=== PATIENT | male | born 1945 | race Caucasian/White ===

== ENCOUNTER 2017-01-20 06:39 | Day surgery (SDC) | payer MEDICARE ==
[2017-01-06 09:39] VITALS: BMI 33.5
[~2017-01-20 06:39] MED LIST: LACTATED RINGERS 1,000 ML IV SCH; LIDOCAINE 1% 20 ML VIAL (10MG/ML) FOR IV START INTRADERMA PRN
[2017-01-20 07:18] VITALS: TEMP 97
[2017-01-20 07:33] LABS: Glucose,Whole Blood 139 mg/dL (75-99)
[2017-01-20] MEDS ORDERED: LACTATED RINGERS 1,000 ML IV ONE (07:35)
[2017-01-20] MEDS ORDERED: PROPOFOL 10 MG/ML 20 ML VIAL IV ONE (08:24)
[2017-01-20 08:30] LABS: INR 1.2 (<1.1); Prothrombin Time 11.8 sec (9.0-12.0)
--- NOTE | 2017-01-20 09:02 | P.PCN ---
Date of Procedure: 01/20/17 Preoperative Diagnosis: Postoperative Diagnosis: Procedure(s) Performed: Procedure: Total colonoscopy. Preoperative diagnosis: Screening for neoplasia, patient has history of polyps. Postoperative diagnosis: 1. Sigmoid diverticulosis with no evidence of acute diverticulitis or strictures. 2. Less than ideal preparation, however, no obvious polyps or tumors seen. Preparation: HalfLytely prep. Sedation: Was provided by anesthesia. Brief clinical history: The patient is a 71-year-old male who is scheduled for this evaluation for screening for neoplasia because of history of polyps. His last exam was in March 2011. At this time, he has no abdominal complaints, bleeding or anemia. Procedure: With the patient on his left lateral decubitus position and after informed consent and adequate sedation, the perianal area was inspected and it did not show any fissures or fistulas. There were no masses felt on digital rectal examination. The Olympus CFQ 160L video colonoscope was then inserted in the rectum in the usual fashion and advanced to the cecum. Unfortunately, the preparation was less than ideal and there was some solid fecal material and fecal debris that that I could not wash off or suction totally. Where visualized , the mucosa appeared healthy and I did not see any polyps or tumors. There were multiple diverticular orifices seen scattered in the sigmoid with no evidence of acute diverticulitis or strictures. I retroflexed the endoscope in the rectum before the endoscope was withdrawn. The patient tolerated the procedure well. Plan: The patient was reassured. I discussed dietary measures. In light of his preparation, I am recommending repeat exam in 3 years after a two-day preparation. He will follow up with you as planned. Implants: Indications for Procedure: Operative Findings: Description of Procedure:
[2017-01-20 09:07] VITALS: RESP 18
[2017-01-20 09:38] VITALS: BP 144/88; PULSE 55
== END 2017-01-20 09:51 | disposition home or self-care (01) ==
LOC: ORWHC2ENDO 06:39
DX: Z12.11 Encounter for screening for malignant neoplasm of colon (principal); K57.30 Diverticulosis of large intestine without perforation or abscess without bleeding; Z86.010 Personal history of colon polyps; I10 Essential (primary) hypertension; E78.5 Hyperlipidemia, unspecified; I48.91 Unspecified atrial fibrillation; Z79.01 Long term (current) use of anticoagulants; Z72.0 Tobacco use; E11.9 Type 2 diabetes mellitus without complications; Z79.4 Long term (current) use of insulin; Z79.84 Long term (current) use of oral hypoglycemic drugs; Z85.46 Personal history of malignant neoplasm of prostate; M10.9 Gout, unspecified; Z79.82 Long term (current) use of aspirin; Z79.899 Other long term (current) drug therapy
CPT/HCPCS: 85610; J2704; G0105

== ENCOUNTER 2017-04-30 18:29 | Emergency (ER) | payer MEDICARE ==
[2017-04-30] MEDS ORDERED: SODIUM CHLORIDE 0.9% 1,000 ML IV STA (18:54)
[2017-04-30 18:56] VITALS: RESP 18
--- NOTE | 2017-04-30 18:57 | ED ---
General Adult HPI - General Chief complaint: Allergic Reaction Stated complaint: Bee Sting Time Seen by Provider: 04/30/17 18:49 Source: patient, family, EMS, RN notes reviewed, old records reviewed Mode of arrival: EMS Limitations: no limitations - History of Present Illness Initial comments: This is a 72-year-old male here for evaluation a. Patient coming in the ER for evaluation after bugs or bee sting. Patient was currently dressed he became near beehive, patient was stung multiple times he tried Runaway he did fall and twisted fell landing on his head. Patient was immediately confused after event. Patient is on blood thinners Coumadin. No loss of consciousness per patient but it is unclear. No chest pain no headache or shortness of breath or abdominal pain at this time, patient states he feels well - Related Data Home Medications Medication Instructions Recorded Confirmed Allopurinol [Zyloprim] 100 mg PO DAILY 01/06/17 01/18/17 Aspirin [Adult Low Dose Aspirin EC] 81 mg PO DAILY 01/06/17 01/18/17 Cholecalciferol [Vitamin D3] 2,000 unit PO DAILY 01/06/17 01/18/17 Digoxin 250 mcg PO DAILY 01/06/17 01/18/17 Enalapril [Vasotec] 20 mg PO DAILY 01/06/17 01/18/17 Fenofibrate 160 mg PO DAILY 01/06/17 01/18/17 Flaxseed Oil [Salem-3 Flaxseed Oil] 1,000 mg PO DAILY 01/06/17 01/18/17 Furosemide [Lasix] 20 mg PO DAILY 01/06/17 01/18/17 Insulin Glargine,Hum.rec.anlog 35 units SQ HS 01/06/17 01/18/17 [Toujeo Solostar] Metoprolol Succinate [Toprol XL] 100 mg PO DAILY 01/06/17 01/18/17 Salem-3 Fatty Acids/Fish Oil [Fish 1 each PO QAM 01/06/17 01/18/17 Oil 1,000 mg Softgel] Salem-3 Fatty Acids/Fish Oil [Fish 2 each PO HS 01/06/17 01/18/17 Oil 1,000 mg Softgel] Simvastatin [Zocor] 40 mg PO DAILY 01/06/17 01/18/17 Triamterene-Hctz 37.5-25Mg 1 cap PO DAILY 01/06/17 01/18/17 [Dyazide 37.5-25 Capsule] Warfarin [Coumadin] 7.5 mg PO DAILY 01/06/17 01/18/17 metFORMIN HCL [Glucophage] 1,000 mg PO QAM 01/06/17 01/18/17 metFORMIN HCL [Glucophage] 500 mg PO HS 01/06/17 01/18/17 Allergies Allergy/AdvReac Type Severity Reaction Status Date / Time bee venom protein (honey bee) Allergy Unknown Unknown Verified 04/30/17 18:47 Review of Systems ROS Statement: Those systems with pertinent positive or pertinent negative responses have been documented in the HPI. ROS Other: All systems not noted in ROS Statement are negative. 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 STATES COLONOSCOPY WAS RESCHEDULED DUE TO COUMADIN USE. History of Any Multi-Drug Resistant Organisms: None Reported Past Surgical History: Appendectomy, Joint Replacement, Orthopedic Surgery Additional Past Surgical History / Comment(s): left shoulder surgery, surgery rt eye from metal in eye, left carpal tunnel, shabana hip replacements Past Anesthesia/Blood Transfusion Reactions: No Reported Reaction Past Psychological History: No Psychological Hx Reported Smoking Status: Current some day smoker Past Alcohol Use History: None Reported Past Drug Use History: None Reported - Past Family History Mother Family Medical History: Cancer General Exam Limitations: no limitations General appearance: alert, in no apparent distress Head exam: Present: atraumatic, normocephalic, normal inspection Eye exam: Present: normal appearance, PERRL, EOMI. Absent: scleral icterus, conjunctival injection, periorbital swelling ENT exam: Present: normal exam, mucous membranes moist Neck exam: Present: normal inspection. Absent: tenderness, meningismus, lymphadenopathy Respiratory exam: Present: normal lung sounds bilaterally. Absent: respiratory distress, wheezes, rales, rhonchi, stridor Cardiovascular Exam: Present: regular rate, normal rhythm, normal heart sounds. Absent: systolic murmur, diastolic murmur, rubs, gallop, clicks GI/Abdominal exam: Present: soft, normal bowel sounds. Absent: distended, tenderness, guarding, rebound, rigid Extremities exam: Present: normal inspection, full ROM, normal capillary refill. Absent: tenderness, pedal edema, joint swelling, calf tenderness Back exam: Present: normal inspection Neurological exam: Present: alert, oriented X3, CN II-XII intact Psychiatric exam: Present: normal affect, normal mood Skin exam: Present: warm, dry, intact, normal color. Absent: rash Course Vital Signs 04/30/17 04/30/17 04/30/17 18:47 18:56 19:01 Temperature 97.6 F Pulse Rate 78 Respiratory 18 18 Rate Blood Pressure 120/69 O2 Sat by Pulse 97 Oximetry 04/30/17 19:35 Temperature Pulse Rate 79 Respiratory 18 Rate Blood Pressure 122/72 O2 Sat by Pulse 100 Oximetry - Reevaluation(s) Reevaluation #1: 04/30/17 18:57 Patient currently awake and alert Reevaluation #2: 04/30/17 20:05 no complaints Medical Decision Making - Medical Decision Making 72 male to the ED sp allergic reaction bee sting, fall, trip, closed head injury on coumadin, labs and CT normal ok for DC home - Lab Data Result diagrams: 04/30/17 18:45 04/30/17 18:45 Lab Results 04/30/17 04/30/17 04/30/17 Range/Units 18:45 18:45 18:45 WBC 13.8 H (3.8-10.6) k/uL RBC 5.59 (4.30-5.90) m/uL Hgb 17.2 (13.0-17.5) gm/dL Hct 51.7 (39.0-53.0) % MCV 92.5 (80.0-100.0) fL MCH 30.7 (25.0-35.0) pg MCHC 33.2 (31.0-37.0) g/dL RDW 14.6 (11.5-15.5) % Plt Count 263 (150-450) k/uL Neutrophils % 85 % Lymphocytes % 9 % Monocytes % 4 % Eosinophils % 1 % Basophils % 0 % Neutrophils # 11.8 H (1.3-7.7) k/uL Lymphocytes # 1.2 (1.0-4.8) k/uL Monocytes # 0.5 (0-1.0) k/uL Eosinophils # 0.1 (0-0.7) k/uL Basophils # 0.0 (0-0.2) k/uL PT (9.0-12.0) sec INR (<1.2) APTT (22.0-30.0) sec Sodium 139 (137-145) mmol/L Potassium 4.0 (3.5-5.1) mmol/L Chloride 101 (98-107) mmol/L Carbon Dioxide 27 (22-30) mmol/L Anion Gap 11 mmol/L BUN 33 H (9-20) mg/dL Creatinine 1.40 H (0.66-1.25) mg/dL Est GFR (MDRD) Af Amer >60 (>60 ml/min/1.73 sqM) Est GFR (MDRD) Non-Af 50 (>60 ml/min/1.73 sqM) Glucose 241 H (74-99) mg/dL Calcium 9.4 (8.4-10.2) mg/dL Phosphorus 4.3 (2.5-4.5) mg/dL Magnesium 1.8 (1.6-2.3) mg/dL Total Bilirubin 0.6 (0.2-1.3) mg/dL AST 25 (17-59) U/L ALT 26 (21-72) U/L Alkaline Phosphatase 40 (38-126) U/L Total Creatine Kinase 60 (55-170) U/L CK-MB (CK-2) 1.7 (0.0-2.4) ng/mL CK-MB (CK-2) Rel Index 2.8 Troponin I 0.023 (0.000-0.034) ng/mL Total Protein 6.1 L (6.3-8.2) g/dL Albumin 3.5 (3.5-5.0) g/dL 04/30/17 Range/Units 18:45 WBC (3.8-10.6) k/uL RBC (4.30-5.90) m/uL Hgb (13.0-17.5) gm/dL Hct (39.0-53.0) % MCV (80.0-100.0) fL MCH (25.0-35.0) pg MCHC (31.0-37.0) g/dL RDW (11.5-15.5) % Plt Count (150-450) k/uL Neutrophils % % Lymphocytes % % Monocytes % % Eosinophils % % Basophils % % Neutrophils # (1.3-7.7) k/uL Lymphocytes # (1.0-4.8) k/uL Monocytes # (0-1.0) k/uL Eosinophils # (0-0.7) k/uL Basophils # (0-0.2) k/uL PT 19.2 H (9.0-12.0) sec INR 2.0 H (<1.2) APTT 23.6 (22.0-30.0) sec Sodium (137-145) mmol/L Potassium (3.5-5.1) mmol/L Chloride (98-107) mmol/L Carbon Dioxide (22-30) mmol/L Anion Gap mmol/L BUN (9-20) mg/dL Creatinine (0.66-1.25) mg/dL Est GFR (MDRD) Af Amer (>60 ml/min/1.73 sqM) Est GFR (MDRD) Non-Af (>60 ml/min/1.73 sqM) Glucose (74-99) mg/dL Calcium (8.4-10.2) mg/dL Phosphorus (2.5-4.5) mg/dL Magnesium (1.6-2.3) mg/dL Total Bilirubin (0.2-1.3) mg/dL AST (17-59) U/L ALT (21-72) U/L Alkaline Phosphatase (38-126) U/L Total Creatine Kinase (55-170) U/L CK-MB (CK-2) (0.0-2.4) ng/mL CK-MB (CK-2) Rel Index Troponin I (0.000-0.034) ng/mL Total Protein (6.3-8.2) g/dL Albumin (3.5-5.0) g/dL - Radiology Data Radiology results: report reviewed (CT brain C spine negative for acute disease) , image reviewed Disposition Clinical Impression: Allergic reaction to insect sting, Fall, Head injury Disposition: HOME SELF-CARE Condition: Good Instructions: Concussion (ED), Head Injury (ED) Referrals: Ginna Martin DO [Primary Care Provider] - 1-2 days
[2017-04-30 19:07] VITALS: TEMP 97.6
[2017-04-30 19:14] LABS: Basophils % (A) 0 %; CH 30.7; CHCM 33.3; Eosinophils # (A) 0.1 k/uL (0-0.7); Eosinophils % (A) 1 %; HCT 51.7 % (39.0-53.0); HDW 2.73; HGB 17.2 gm/dL (13.0-17.5); Luc # (Auto) 0.14; Luc % (Auto) 1; Lymphocytes # (A) 1.2 k/uL (1.0-4.8); Lymphocytes % (A) 9 %; MCH 30.7 pg (25.0-35.0); MCHC 33.2 g/dL (31.0-37.0); MCV 92.5 fL (80.0-100.0); Mean Platelet Volume 7.1; Monocytes # (A) 0.5 k/uL (0-1.0); Monocytes % (A) 4 %; Neutrophils # (A) 11.8 k/uL (1.3-7.7); Neutrophils % (A) 85 %; RBC 5.59 m/uL (4.30-5.90); RDW 14.6 % (11.5-15.5); WBC 13.8 k/uL (3.8-10.6); WBC (Perox) 13.83
[2017-04-30 19:23] LABS: Partial Thromboplastin Time 23.6 sec (22.0-30.0); Prothrombin Time 19.2 sec (9.0-12.0)
--- NOTE | 2017-04-30 19:34 | CT ---
EXAMINATION TYPE: CT brain morena keller DATE OF EXAM: 04/30/2017 COMPARISON: NONE HISTORY: Patient fell and hit back of head running from a swarm of bees with new headache and neck pa in. CT DLP: 1265.4 mGycm. Automated Exposure Control for Dose Reduction was Utilized. TECHNIQUE: CT scan of the head and cervical spine are performed without contrast. FINDINGS: There is no acute intracranial hemorrhage or midline shift identified. There is ventricul ar and sulcal prominence consistent with diffuse cerebral atrophy. There is low-attenuation in the pe riventricular white matter likely on basis of product of chronic small vessel ischemic change in trish ent of this age. There is posterior curvilinear scleral calcification in inferior right globe. The pa ranasal sinuses are clear. The calvarium is intact. Cervical spine is visualized in its entirety from C1 through upper thoracic levels and demonstrates r eversal of normal cervical curvature without evidence of acute fracture or dislocation. Prevertebral soft tissue appears within normal limits. The C1-C2 articulation is within normal limits on the cor onal images. Vertebral body heights are maintained. There is moderate to advanced disc space narrowing with modera te spurring at C5-C6 level. There is additional mild to moderate multilevel anterior spurring. Regional Education Coordinator ior spur disc complex effaces anterior thecal sac C5-C6 level on sagittal and axial images. Review of axial images shows multilevel uncovertebral facet degenerative changes contributing to mult ilevel bilateral neural foraminal narrowing. Some retained secretions are seen in the posterior oral pharyngeal cavity and proximal hypopharynx near level of vallecula. There is moderate to severe calci fied plaque in the bilateral carotid bulbs noted. Consider nonemergent carotid ultrasound follow-up. Thyroid gland is felt within normal limits. Visualized lung apices are clear. IMPRESSION: 1. There is no acute fracture or dislocation evident in the cervical spine. 2. No acute intracranial hemorrhage or midline shift is seen. There is mild to moderate diffuse cereb ral atrophy and chronic small vessel ischemic change noted.
[2017-04-30 19:37] VITALS: BP 122/72; PULSE 79
[2017-04-30 19:52] LABS: ALT 26 U/L (21-72); AST 25 U/L (17-59); Alkaline Phosphatase 40 U/L (38-126); Anion Gap 11 mmol/L; Blood Urea Nitrogen 33 mg/dL (9-20); Calcium 9.4 mg/dL (8.4-10.2); Carbon Dioxide 27 mmol/L (22-30); Chloride 101 mmol/L (98-107); Glucose 241 mg/dL (74-99); Magnesium 1.8 mg/dL (1.6-2.3); Non-African American GFR(MDRD) 50 (>60 ml/min/1.73 sqM); Phosphorous 4.3 mg/dL (2.5-4.5); Sodium 139 mmol/L (137-145); Total Bilirubin 0.6 mg/dL (0.2-1.3); Total Protein 6.1 g/dL (6.3-8.2)
[2017-04-30 20:03] LABS: Creatine Kinase MB 1.7 ng/mL (0.0-2.4); Troponin I 0.023 ng/mL (0.000-0.034)
== END 2017-04-30 20:35 | disposition home or self-care (01) ==
LOC: EC 18:29
DX: S09.90XA Unspecified injury of head, initial encounter (principal); T63.441A Toxic effect of venom of bees, accidental (unintentional), initial encounter; E11.9 Type 2 diabetes mellitus without complications; E78.5 Hyperlipidemia, unspecified; I10 Essential (primary) hypertension; N42.9 Disorder of prostate, unspecified; F17.200 Nicotine dependence, unspecified, uncomplicated; Z85.46 Personal history of malignant neoplasm of prostate; Z79.82 Long term (current) use of aspirin; Z79.4 Long term (current) use of insulin; Z79.01 Long term (current) use of anticoagulants; Z79.899 Other long term (current) drug therapy; Z91.030 Bee allergy status; W01.10XA Fall on same level from slipping, tripping and stumbling with subsequent striking against unspecified object, initial encounter
CPT/HCPCS: 36415; 70450; 72125; 80053; 82550; 82553; 83735; 84100; 84484; 85025; 85610; 85730; 96360; 99284

== ENCOUNTER → 2018-12-06 | Day surgery (SDC) | payer MEDICARE ==
[2018-12-01 15:58] VITALS: BMI 33.2
[~2018-12-06] MED LIST changes: +ALPRAZolam 0.25 MG TAB PO PRN; +ALPRAZolam 0.5 MG TAB PO PRN; +ASPIRIN 325 MG TAB PO STA; +ATORVASTATIN 80 MG TAB PO STA; +IOPAMIDOL-370 150ML BTL INJ ONE; -LACTATED RINGERS 1,000 ML IV SCH; -LIDOCAINE 1% 20 ML VIAL (10MG/ML) FOR IV START INTRADERMA PRN; +LIDOCAINE 1% INJ 10MG/ML (20 ML MDV) ONE; +LIDOCAINE 1% INJ 10MG/ML (20 ML MDV) SQ ONE; +MIDAZOLAM 2 MG/2 ML VIAL IV ONE; +NITROGLYCERIN SL TABS 0.4 MG TAB SUBLINGUAL PRN; +RX INFO: IV CONTRAST WAS GIVEN 1 EACH MISC MISCELLANE PRN; +SODIUM CHLORIDE 0.9% 1,000 ML IV SCH; +SODIUM CHLORIDE 0.9% 1,000 ML in EMPTY BAG 1 BAG IV ONE; +cloNIDine HCL 0.1 MG TAB PO SCH; +fentaNYL (PF) 50 MCG/ML 2 ML AMP ONE
[2018-12-06 06:47] VITALS: RESP 18; TEMP 97.7
[2018-12-06 06:48] LABS: INR 1.1 (<1.2); Prothrombin Time 11.4 sec (9.0-12.0)
[2018-12-06 06:51] LABS: Glucose,Whole Blood 163 mg/dL (75-99)
[2018-12-06 06:52] LABS: Calcium 10.1 mg/dL (8.4-10.2)
[2018-12-06] MEDS: fentaNYL (PF) 50 MCG/ML 2 ML AMP IV ONE ×2 (07:50→08:13)
--- NOTE | 2018-12-06 11:48 | CC ---
CARDIAC CATHETERIZATION REPORT INDICATION: Cardiomyopathy. PROCEDURE NOTE: After obtaining informed consent, left heart catheterization, coronary angiogram were performed via the right femoral artery using standard Michelle catheters. Patient tolerated the procedure well without any obvious immediate complications. A femoral angiogram was performed and Angio-Seal was deployed for hemostasis. Patient received moderate conscious sedation. Total sedation time was 15 minutes. FINDINGS: 1. HEMODYNAMICS: Central aortic pressure was elevated at 150/90. 2. LEFT VENTRICULOGRAM: Left ventriculogram is not performed. 3. ANGIOGRAPHIC DATA: Left Main Coronary Artery: Left main coronary artery is a normal-sized vessel appears calcified but is free of significant stenosis. Divides into left anterior descending coronary artery and circumflex coronary artery. LAD shows a mild atherosclerotic plaque in LAD. There are no focal hemodynamically significant lesions. Circumflex coronary artery is a codominant vessel and is free of significant disease. Right coronary artery is a large dominant vessel and shows mild atherosclerotic plaque in its proximal part. CONCLUSION: Mild nonobstructive coronary artery disease involving LAD and right coronary artery. PLAN: I reviewed patient's angiographic data with the patient and told him that his cardiomyopathy is nonischemic in etiology and his management is going to be with continued medical therapy. Blood pressures are poorly controlled. I am going to start him on Catapres 0.1 mg b.i.d. Coumadin is on hold. He is going to resume it. He is on metformin. He is going to hold it for 2 days. MMEMMANUELL / AJN: [id number] /
--- NOTE | 2018-12-06 11:50 | LTR ---
December 06, 2018 Re: Babatunde Peters Dear Dr. Martin: I performed cardiac catheterization on Babatunde Peters. A detailed catheterization note is in records. In brief, the cardiac catheterization reveals mild nonobstructive coronary artery disease involving LAD and right coronary artery. His management is going to be in the form of risk factor modification, optimal medical therapy and treatment for underlying cardiomyopathy and atrial fibrillation. Thank you for giving me the privilege to participate in the care of this pleasant gentleman. Sincerely, MD INGA Bender / HOOD: [id number] /
[2018-12-06 13:36] VITALS: BP 138/86; PULSE 74
== END ==
LOC: CATHCVL 05:41
PROVIDERS: ATTEND Internal Medicine Cardiovascular Disease
DX: I25.10 Atherosclerotic heart disease of native coronary artery without angina pectoris (principal); I48.2 Chronic atrial fibrillation; I42.0 Dilated cardiomyopathy; E11.9 Type 2 diabetes mellitus without complications; I10 Essential (primary) hypertension; Z79.82 Long term (current) use of aspirin; Z79.899 Other long term (current) drug therapy; Z79.01 Long term (current) use of anticoagulants; Z79.84 Long term (current) use of oral hypoglycemic drugs; Z79.4 Long term (current) use of insulin
CPT/HCPCS: 93458; 80048; 85610; C1760; C1894; C1769; J2250; J2001; J3010; Q9967

== ENCOUNTER → 2020-01-25 | Outpatient (CLI) | payer MEDICARE | END | disposition home or self-care (01) | LOC: LABWHC1 16:22 | PROVIDERS: ATTEND Pediatrics Pediatric Infectious Diseases | DX: Z53.9 Procedure and treatment not carried out, unspecified reason (principal) ==

== ENCOUNTER → 2020-09-11 | Outpatient (CLI) | payer MEDICARE ==
--- NOTE | 2020-09-11 17:26 | CT ---
EXAMINATION TYPE: CT brain wo con DATE OF EXAM: 09/11/2020 COMPARISON: 04/30/2017. HISTORY: AMS CT DLP: 1118.6 mGycm Automated exposure control for dose reduction was used. FINDINGS: There is no acute intracranial hemorrhage, mass effect, midline shift or hydrocephalus. There is mild to moderate white matter disease and parenchymal volume loss. The paranasal sinuses and mastoid air cells are adequately aerated. The calvarium is intact. IMPRESSION: NO ACUTE INTRACRANIAL ABNORMALITY.
--- NOTE | 2020-09-11 17:33 | CT ---
EXAMINATION TYPE: CT abdomen pelvis wo con DATE OF EXAM: 09/11/2020 COMPARISON: None available. HISTORY: Hematuria CT DLP: 1172.1 mGycm Automated exposure control for dose reduction was used. TECHNIQUE: Helical acquisition of images was performed from the lung bases through the pelvis. FINDINGS: LUNG BASES: No significant abnormality is appreciated. LIVER/GB: No significant abnormality is appreciated. PANCREAS: No significant abnormality is seen. SPLEEN: No significant abnormality is seen. ADRENALS: No significant abnormality is seen. KIDNEYS: No significant abnormality is seen. FREE AIR: No free air is visualized RETROPERITONEAL ADENOPATHY: None visualized REPRODUCTIVE ORGANS: No significant abnormality is seen URINARY BLADDER: No significant abnormality is seen. PELVIC ADENOPATHY: None visualized. OSSEOUS STRUCTURES: No significant abnormality is seen. BOWEL: No significant abnormality is seen. Bilateral hip arthroplasties seen. Moderate lumbar spondy losis. OTHER: Incompletely imaged 13.6 x 10 x 17.6 cm elongated, mildly hyperattenuating, fluid structure wi thin the soft tissues at the posterior lateral aspect of the left hip/proximal thigh IMPRESSION: LARGE LEFT HIP/PROXIMAL THIGH SOFT TISSUE FLUID STRUCTURE, MOST SUGGESTIVE OF HEMATOMA IN THE SETTING OF TRAUMA. OTHER ETIOLOGIES NOT EXCLUDED. RECOMMEND CLINICAL AND IMAGING FOLLOW-UP TO RESOLUTION. OTHERWISE NO ACUTE FRACTURE OR INTRA-ABDOMINAL/PELVIC ABNORMALITY.
== END | disposition home or self-care (01) ==
LOC: RADCTMAIN 15:44
PROVIDERS: ATTEND Nurse Practitioner Family
DX: M79.89 Other specified soft tissue disorders (principal); R41.82 Altered mental status, unspecified
CPT/HCPCS: 36415; 70450; 74176; 82565; 84520

== ENCOUNTER → 2020-09-15 | Outpatient (CLI) | payer MEDICARE ==
--- NOTE | 2020-09-15 15:55 | MR ---
EXAMINATION TYPE: MR hip LT wo con DATE OF EXAM: 09/15/2020 COMPARISON: Correlation radiograph same day HISTORY: 75-year-old male Left hip neoplasm uncertain behavior, lump on left hip TECHNIQUE: Multiplanar, multisequence images of the left hip were obtained without IV contrast. FINDINGS: There is a very large heterogeneous periarticular collection measuring up to 20.6 cm craniocaudal by 16.3 cm AP by 13.3 cm wide along the posterior and lateral aspect of the left hip replacement. Very h eterogeneous internal signal intensity with areas of bright and dark internal T2 signal and also area s of bright internal T1 signal. Possible thin hemosiderin rim. Extensive internal debris and complexi ty. The collection extends along the gluteal musculature and down into the proximal thigh. Prominent metal hardware artifact limits the remaining evaluation. SI joints and pubic symphysis appear grossly intact. IMPRESSION: 1. Extensive metal hardware artifact related to the patient's bilateral total hip orthoplasty limitin g the overall exam. 2. However, there is a very large heterogeneous collection measuring 20.6 x 16.3 x 13.3 cm along the posterior and lateral aspect of the left hip. Consider a complex hematoma if the finding is relativel y new and there was some associated injury and anticoagulation state. Synovitis relating to polyethyl jackie wear associated particle disease can be considered if the lump has been noted to be gradually inc reasing. IV contrast was not administered; a synovial mass is considered less likely but cannot be en tirely excluded at this time. Recommend orthopedic oncology referral for further workup.
--- NOTE | 2020-09-15 15:59 | XR ---
EXAMINATION TYPE: AP view pelvis and 2 views each hip DATE OF EXAM: 09/15/2020 COMPARISON: NONE HISTORY: 75-year-old male D48.5, neoplasm of uncertain behavior, lump left hip area. FINDINGS: Bilateral total hip arthroplasties are present. Metal on plastic bearing on the left. On the left, felipe th acetabular cup and femoral stem components of the prosthesis appear well seated. There is some het erotopic ossification along the superior aspect of the hip. Generalized soft tissue fullness is prese nt along the left hip. Degenerative change is otherwise lower lumbar spine. IMPRESSION: No significant periprosthetic lucency to suggest loosening at this time and no periprosthetic fractur e. Marked soft tissue fullness at the left hip. Correlate with MRI findings.
== END | disposition home or self-care (01) ==
LOC: RADMRIMAIN 12:18
PROVIDERS: ATTEND Nurse Practitioner Family
DX: D48.5 Neoplasm of uncertain behavior of skin (principal); R93.7 Abnormal findings on diagnostic imaging of other parts of musculoskeletal system; Z96.643 Presence of artificial hip joint, bilateral
CPT/HCPCS: 73521

== ENCOUNTER → 2020-11-11 | Outpatient (CLI) | payer MEDICARE ==
--- NOTE | 2020-11-11 15:43 | US ---
EXAMINATION TYPE: US kidneys/renal and bladder DATE OF EXAM: 11/11/2020 COMPARISON: NONE CLINICAL HISTORY: N18.30 Chronic kidney disease, stage 3. CKD EXAM MEASUREMENTS: Right Kidney: 11.6 x 5.4 x 4.8 cm Left Kidney: 10.8 x 6.3 x 5.0 cm Right Kidney: no evidence of hydronephrosis Left Kidney: no evidence of hydronephrosis Bladder: not fully distended Bilateral Jets seen: no IMPRESSION: 1. Normal renal ultrasound
== END ==
LOC: RADUSWWP 15:06
PROVIDERS: ATTEND Internal Medicine Nephrology
DX: N18.30 Chronic kidney disease, stage 3 unspecified (principal)
CPT/HCPCS: 76770

== ENCOUNTER → 2021-02-11 | Outpatient (CLI) | payer MEDICARE ==
[2021-02-11 14:08] LABS: Basophils % (A) 0 %; Eosinophils # (A) 0.2 k/uL (0-0.7); Eosinophils % (A) 3 %; HCT 33.4 % (39.0-53.0); HGB 10.2 gm/dL (13.0-17.5); Hypochromasia Slight; Lymphocytes # (A) 0.7 k/uL (1.0-4.8); Lymphocytes % (A) 12 %; MCHC 30.4 g/dL (31.0-37.0); MCV 92.3 fL (80.0-100.0); Mean Platelet Volume 6.9; Monocytes # (A) 0.4 k/uL (0-1.0); Monocytes % (A) 6 %; Neutrophils # (A) 5.1 k/uL (1.3-7.7); Neutrophils % (A) 79 %; Platelet Count 376 k/uL (150-450); RBC 3.62 m/uL (4.30-5.90); RDW 15.9 % (11.5-15.5); WBC 6.5 k/uL (3.8-10.6)
[2021-02-11 14:12] LABS: C Reactive Protein 2.4 mg/dL (<1.0)
== END | disposition home or self-care (01) ==
LOC: RADCTMAIN 13:00
PROVIDERS: ATTEND Surgery Surgical Oncology
DX: D48.9 Neoplasm of uncertain behavior, unspecified (principal)
CPT/HCPCS: 82565; 84520; 85025; 86140

== ENCOUNTER 2021-04-27 10:52 | Day surgery (SDC) | payer MEDICARE ==
[2021-04-23 12:06] VITALS: BMI 34.2
[~2021-04-27 10:52] MED LIST changes: -ALPRAZolam 0.25 MG TAB PO PRN; -ALPRAZolam 0.5 MG TAB PO PRN; -ASPIRIN 325 MG TAB PO STA; -ATORVASTATIN 80 MG TAB PO STA; -IOPAMIDOL-370 150ML BTL INJ ONE; +LACTATED RINGERS 1,000 ML IV SCH; -LIDOCAINE 1% INJ 10MG/ML (20 ML MDV) ONE; -LIDOCAINE 1% INJ 10MG/ML (20 ML MDV) SQ ONE; -MIDAZOLAM 2 MG/2 ML VIAL IV ONE; -NITROGLYCERIN SL TABS 0.4 MG TAB SUBLINGUAL PRN; -RX INFO: IV CONTRAST WAS GIVEN 1 EACH MISC MISCELLANE PRN; -SODIUM CHLORIDE 0.9% 1,000 ML IV SCH; -SODIUM CHLORIDE 0.9% 1,000 ML in EMPTY BAG 1 BAG IV ONE; -cloNIDine HCL 0.1 MG TAB PO SCH; -fentaNYL (PF) 50 MCG/ML 2 ML AMP ONE
[2021-04-27 11:41] VITALS: TEMP 97.4
[2021-04-27 11:51] LABS: Glucose,Whole Blood 138 mg/dL (75-99)
--- NOTE | 2021-04-27 13:51 | P.GSHP ---
History of Present Illness H&P Date: 04/27/21 Chief Complaint: Anemia Cyst 76-year-old male been sick for anemia. Patient's hemoglobin has been in the 10 range. He presents today for EGD and colonoscopy. 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 Decker. recently had iron infusions History of Any Multi-Drug Resistant Organisms: MRSA Date of last positivie culture/infection: over 10 yrs (2008?) MDRO Source:: Leg Past Surgical History: AICD, Appendectomy, Joint Replacement, Orthopedic Surgery Additional Past Surgical History / Comment(s): left shoulder surgery, surgery rt eye from metal in eye, left carpal tunnel, shabana hip replacements Past Anesthesia/Blood Transfusion Reactions: No Reported Reaction Type of Cardiac Device: AICD Device Placement Date:: 09/26/20 Past Psychological History: No Psychological Hx Reported Smoking Status: Former smoker Past Alcohol Use History: None Reported Additional Past Alcohol Use History / Comment(s): quit smoking may 2018, smoked 5-6 years. Past Drug Use History: None Reported - Past Family History Mother Family Medical History: Cancer Additional Family Medical History / Comment(s): stomach cancer Medications and Allergies Home Medications Medication Instructions Recorded Confirmed Type Aspirin [Adult Low Dose Aspirin EC] 81 mg PO DAILY 01/06/17 04/23/21 History Cholecalciferol [Vitamin D3 (25 2,000 unit PO DAILY 01/06/17 04/23/21 History Mcg = 1000 Iu)] Fenofibrate 160 mg PO DAILY 01/06/17 04/23/21 History Insulin Glargine,Hum.rec.anlog 34 units SQ HS 01/06/17 04/23/21 History [Toujeo Solostar] Metoprolol Succinate [Toprol XL] 50 mg PO DAILY 01/06/17 04/23/21 History [place]-3 Fatty Acids/Fish Oil [Fish 1 each PO QAM 01/06/17 04/23/21 History Oil 1,000 mg Softgel] [place]-3 Fatty Acids/Fish Oil [Fish 2 each PO HS 01/06/17 04/23/21 History Oil 1,000 mg Softgel] Simvastatin [Zocor] 40 mg PO DAILY 01/06/17 04/23/21 History Warfarin [Coumadin] 2.5 mg PO MOWEFR 01/06/17 04/23/21 History metFORMIN HCL [Glucophage] 1,000 mg PO BID 01/06/17 04/23/21 History Cyanocobalamin (Vitamin B-12) 1,000 mcg PO DAILY 12/01/18 04/23/21 History [Vitamin B-12] Irbesartan 300 mg PO DAILY 12/01/18 04/23/21 History Furosemide [Lasix] 80 mg PO DAILY 12/06/18 04/23/21 History Warfarin [Coumadin] 5 mg PO SUTUTHSA 12/06/18 04/23/21 History Potassium Chloride [Klor-Con 20] 20 mcg PO DAILY 01/09/21 04/23/21 History Pyridoxine HCl (Vitamin B6) 100 mg PO DAILY 01/09/21 04/23/21 History [Vitamin B-6] amLODIPine [Norvasc] 10 mg PO DAILY 01/09/21 04/23/21 History cloNIDine HCL [Catapres] 0.3 mg PO BID 01/09/21 04/23/21 History Ferrous Sulfate [Feosol] 325 mg PO DAILY 04/23/21 04/23/21 History Allergies Allergy/AdvReac Type Severity Reaction Status Date / Time bee venom protein (honey bee) Allergy Unknown PASSED OUT Verified 04/23/21 11:55 X2 Surgical - Exam Vital Signs Temp Pulse Resp BP Pulse Ox 97.4 F L 61 20 120/80 94 L 04/27/21 11:20 04/27/21 11:20 04/27/21 11:20 04/27/21 11:20 04/27/21 11:20 - General well developed, well nourished, no distress - Eyes PERRL - ENT normal pinna - Neck no masses - Respiratory normal expansion - Cardiovascular Rhythm: regular - Abdomen Abdomen: soft, non tender Results - Labs Abnormal Lab Results - Last 24 Hours (Table) 04/27/21 Range/Units 11:34 POC Glucose (mg/dL) 138 H (75-99) mg/dL Assessment and Plan Assessment: Anemia. We'll perform EGD and colonoscopy.
[2021-04-27] MEDS ORDERED: PROPOFOL 10 MG/ML 20 ML VIAL IV ONE (13:57)
[2021-04-27] MEDS ORDERED: IV FLUID CONTINUATION 1,000 ML IV ONE (14:25)
[2021-04-27 14:52] VITALS: RESP 16
[2021-04-27 14:56] LABS: Glucose,Whole Blood 115 mg/dL (75-99)
[2021-04-27 15:01] VITALS: BP 135/77; PULSE 75
--- NOTE | 2021-04-27 17:08 | P.OP ---
Date of Procedure: 04/27/21 Preoperative Diagnosis: Anemia Postoperative Diagnosis: Antral gastritis Diverticulosis Procedure(s) Performed: EGD Colonoscopy Anesthesia: MAC Surgeon: Xavier Snowden Pathology: other (Antrum) Condition: stable Disposition: PACU Description of Procedure: The patient's placed on the endoscopy table in the lateral position. He received IV sedation. The gastroscope was then placed oropharynx and passed in the esophagus and stomach. Scope was then placed through the pylorus. The first and second portion of the duodenum appeared normal. There is no blood seen in the duodenum. Scope summer back the antrum and this appeared minimally inflamed. A biopsies performed. There was no blood seen stomach. Scope was retroflexed the remainder some appeared normal. The GE junction was at 40 cm. The distal esophagus appeared normal. The proximal esophagus appeared normal. Scope was withdrawn for patient. Next digital rectal exam was performed which revealed a patulous anus. The scope was then placed patient anus and passed with colon. The patient had difficulty holding air in the colon. This distal to insufflated the colon. There scope couldn't pass beyond the distal transverse colon. Scope was withdrawn. In the descending; there is extensive diverticular changes. The scope was brought back the rectum this appeared normal. Scope withdrawn for patient. There is no evidence of any GI bleed in the upper or lower GI tract. If patient has a significant bleeding. He will need to have a computed tomography scan of the abdomen performed.
== END 2021-04-27 15:10 | disposition home or self-care (01) ==
LOC: ORWHC2ENDO 10:52
PROVIDERS: ATTEND Surgery
DX: K29.60 Other gastritis without bleeding (principal); K57.90 Diverticulosis of intestine, part unspecified, without perforation or abscess without bleeding; D64.9 Anemia, unspecified; E78.5 Hyperlipidemia, unspecified; I10 Essential (primary) hypertension; I48.91 Unspecified atrial fibrillation; M19.90 Unspecified osteoarthritis, unspecified site; E11.9 Type 2 diabetes mellitus without complications; Z79.01 Long term (current) use of anticoagulants; Z79.4 Long term (current) use of insulin; Z79.82 Long term (current) use of aspirin; Z85.46 Personal history of malignant neoplasm of prostate; Z87.891 Personal history of nicotine dependence; Z90.49 Acquired absence of other specified parts of digestive tract; Z95.810 Presence of automatic (implantable) cardiac defibrillator; N42.9 Disorder of prostate, unspecified; N28.9 Disorder of kidney and ureter, unspecified; Z80.9 Family history of malignant neoplasm, unspecified
CPT/HCPCS: 45378; 43239; J2704; 88305

== ENCOUNTER 2021-05-22 11:17 | Inpatient (IN) | payer MEDICARE ==
[2021-05-22 12:18] LABS: Anisocytosis Slight; Basophils % (A) 0 %; Eosinophils # (A) 0.2 k/uL (0-0.7); Eosinophils % (A) 2 %; HCT 37.5 % (39.0-53.0); HGB 11.8 gm/dL (13.0-17.5); Lymphocytes # (A) 0.9 k/uL (1.0-4.8); Lymphocytes % (A) 11 %; MCH 28.9 pg (25.0-35.0); MCHC 31.5 g/dL (31.0-37.0); MCV 91.7 fL (80.0-100.0); Mean Platelet Volume 7.6; Monocytes # (A) 0.4 k/uL (0-1.0); Monocytes % (A) 4 %; Neutrophils # (A) 6.7 k/uL (1.3-7.7); Neutrophils % (A) 81 %; Platelet Count 331 k/uL (150-450); RBC 4.09 m/uL (4.30-5.90); RDW 17.2 % (11.5-15.5); WBC 8.2 k/uL (3.8-10.6)
--- NOTE | 2021-05-22 12:22 | ED ---
General Adult HPI - General Chief complaint: GI Bleed Stated complaint: Male GI Time Seen by Provider: 05/22/21 11:51 Source: patient Mode of arrival: ambulatory Limitations: no limitations - History of Present Illness Initial comments: Dictation was produced using [employer] dictation software. please excuse any grammatical, word or spelling errors. Chief Complaint: 76-year-old male presents with GI bleed for the last 3 days History of Present Illness: 76-year-old male presents emergency department for GI bleed for the last 3 days. Patient reports bright red blood per rectum. Denies any rectal pain. No abdominal pain. Patient had EGD and colonoscopy performed last month with no obvious source of bleeding. No fever, no nausea vomiting. Patient takes Coumadin. The ROS documented in this emergency department record has been reviewed and confirmed by me. Those systems with pertinent positive or negative responses have been documented in the HPI. All other systems are other negative and/or noncontributory. PHYSICAL EXAM: General Impression: Alert and oriented x3, not in acute distress HEENT: Normocephalic atraumatic, extra-ocular movements intact, pupils equal and reactive to light bilaterally, mucous membranes moist. Cardiovascular: Heart regular rate and rhythm Chest: Able to complete full sentences, no retractions, no tachypnea Abdomen: abdomen soft, non-tender, non-distended, no organomegaly Musculoskeletal: Pulses present and equal in all extremities, no peripheral edema Motor: no focal deficits noted Neurological: CN II-XII grossly intact, no focal motor or sensory deficits noted Skin: Intact with no visualized rashes Psych: Normal affect and mood Rectal exam: Bright red blood on digital rectal exam, no obvious source of bleeding, no active examination ED course: 76-year-old male on Coumadin who for 3 days of bright red blood per rectum. Vital signs upon arrival are within acceptable limits. Laboratory evaluation obtained. Hemoglobin stable at 11.8. Compared to previous hemoglobin levels us. Be around his baseline. Coag panel shows INR of 8.4. Elevated renal markers slightly elevated above his baseline. So, blood is positive. Case discussed with hospitalist Dr. Rouse who reviewed patient's chart. He is agreeable with patient admission. Patient reevaluated at the bedside at approximately 1:00 PM no active bleeding. Is well-appearing at bedside. This point no clear indication for ICU admission. Patient was given vitamin K. Hospitalist Dr. salazar requested the patient be given 1 unit of FFP - Related Data Home Medications Medication Instructions Recorded Confirmed Aspirin [Adult Low Dose Aspirin EC] 81 mg PO DAILY 01/06/17 04/23/21 Cholecalciferol [Vitamin D3 (25 2,000 unit PO DAILY 01/06/17 04/23/21 Mcg = 1000 Iu)] Fenofibrate 160 mg PO DAILY 01/06/17 04/23/21 Insulin Glargine,Hum.rec.anlog 34 units SQ HS 01/06/17 04/23/21 [Toujeo Solostar] Metoprolol Succinate [Toprol XL] 50 mg PO DAILY 01/06/17 04/23/21 Olin-3 Fatty Acids/Fish Oil [Fish 1 each PO QAM 01/06/17 04/23/21 Oil 1,000 mg Softgel] Olin-3 Fatty Acids/Fish Oil [Fish 2 each PO HS 01/06/17 04/23/21 Oil 1,000 mg Softgel] Simvastatin [Zocor] 40 mg PO DAILY 01/06/17 04/23/21 Warfarin [Coumadin] 2.5 mg PO MOWEFR 01/06/17 04/23/21 metFORMIN HCL [Glucophage] 1,000 mg PO BID 01/06/17 04/23/21 Cyanocobalamin (Vitamin B-12) 1,000 mcg PO DAILY 12/01/18 04/23/21 [Vitamin B-12] Irbesartan 300 mg PO DAILY 12/01/18 04/23/21 Furosemide [Lasix] 80 mg PO DAILY 12/06/18 04/23/21 Warfarin [Coumadin] 5 mg PO SUTUTHSA 12/06/18 04/23/21 Potassium Chloride [Klor-Con 20] 20 mcg PO DAILY 01/09/21 04/23/21 Pyridoxine HCl (Vitamin B6) 100 mg PO DAILY 01/09/21 04/23/21 [Vitamin B-6] amLODIPine [Norvasc] 10 mg PO DAILY 01/09/21 04/23/21 cloNIDine HCL [Catapres] 0.3 mg PO BID 01/09/21 04/23/21 Ferrous Sulfate [Feosol] 325 mg PO DAILY 04/23/21 04/23/21 Allergies Allergy/AdvReac Type Severity Reaction Status Date / Time bee venom protein (honey bee) Allergy Unknown PASSED OUT Verified 05/22/21 11:42 X2 Review of Systems ROS Statement: Those systems with pertinent positive or pertinent negative responses have been documented in the HPI. ROS Other: All systems not noted in ROS Statement are negative. 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 Decker. History of Any Multi-Drug Resistant Organisms: MRSA Date of last positivie culture/infection: over 10 yrs (2008?) MDRO Source:: Leg Past Surgical History: Appendectomy, Joint Replacement, Orthopedic Surgery Additional Past Surgical History / Comment(s): left shoulder surgery, surgery rt eye from metal in eye, left carpal tunnel, shabana hip replacements Past Anesthesia/Blood Transfusion Reactions: No Reported Reaction Past Psychological History: No Psychological Hx Reported Smoking Status: Former smoker Past Alcohol Use History: None Reported Past Drug Use History: None Reported - Past Family History Mother Family Medical History: Cancer Additional Family Medical History / Comment(s): stomach cancer General Exam Limitations: no limitations Course Vital Signs 05/22/21 11:43 Temperature 98.4 F Pulse Rate 73 Respiratory 18 Rate Blood Pressure 133/84 O2 Sat by Pulse 100 Oximetry Medical Decision Making - Lab Data Result diagrams: 05/22/21 12:00 05/22/21 Unknown Lab Results 05/22/21 05/22/21 05/22/21 Range/Units 12:00 12:00 12:10 WBC 8.2 (3.8-10.6) k/uL RBC 4.09 L (4.30-5.90) m/uL Hgb 11.8 L (13.0-17.5) gm/dL Hct 37.5 L (39.0-53.0) % MCV 91.7 (80.0-100.0) fL MCH 28.9 (25.0-35.0) pg MCHC 31.5 (31.0-37.0) g/dL RDW 17.2 H (11.5-15.5) % Plt Count 331 (150-450) k/uL MPV 7.6 Neutrophils % 81 % Lymphocytes % 11 % Monocytes % 4 % Eosinophils % 2 % Basophils % 0 % Neutrophils # 6.7 (1.3-7.7) k/uL Lymphocytes # 0.9 L (1.0-4.8) k/uL Monocytes # 0.4 (0-1.0) k/uL Eosinophils # 0.2 (0-0.7) k/uL Basophils # 0.0 (0-0.2) k/uL Anisocytosis Slight PT (9.0-12.0) sec INR (<1.2) APTT (22.0-30.0) sec Sodium (137-145) mmol/L Potassium (3.5-5.1) mmol/L Chloride (98-107) mmol/L Carbon Dioxide (22-30) mmol/L Anion Gap mmol/L BUN (9-20) mg/dL Creatinine (0.66-1.25) mg/dL Est GFR (CKD-EPI)AfAm (>60 ml/min/1.73 sqM) Est GFR (CKD-EPI)NonAf (>60 ml/min/1.73 sqM) Glucose (74-99) mg/dL Calcium (8.4-10.2) mg/dL Stool Occult Blood (Negative) Blood Type A Positive Blood Type Confirm A Positive Blood Type Recheck No Previous Record Bld Type Recheck Status CABO Indicated Antibody Screen NEGATIVE Spec Expiration Date 05/25/2021 - 229905/22/21 05/22/21 05/22/21 Range/Units 12:32 Unknown Unknown WBC (3.8-10.6) k/uL RBC (4.30-5.90) m/uL Hgb (13.0-17.5) gm/dL Hct (39.0-53.0) % MCV (80.0-100.0) fL MCH (25.0-35.0) pg MCHC (31.0-37.0) g/dL RDW (11.5-15.5) % Plt Count (150-450) k/uL MPV Neutrophils % % Lymphocytes % % Monocytes % % Eosinophils % % Basophils % % Neutrophils # (1.3-7.7) k/uL Lymphocytes # (1.0-4.8) k/uL Monocytes # (0-1.0) k/uL Eosinophils # (0-0.7) k/uL Basophils # (0-0.2) k/uL Anisocytosis PT 81.8 H (9.0-12.0) sec INR 8.4 H* (<1.2) APTT 52.4 H (22.0-30.0) sec Sodium 142 (137-145) mmol/L Potassium 4.6 (3.5-5.1) mmol/L Chloride 107 (98-107) mmol/L Carbon Dioxide 25 (22-30) mmol/L Anion Gap 10 mmol/L BUN 39 H (9-20) mg/dL Creatinine 2.25 H (0.66-1.25) mg/dL Est GFR (CKD-EPI)AfAm 31 (>60 ml/min/1.73 sqM) Est GFR (CKD-EPI)NonAf 27 (>60 ml/min/1.73 sqM) Glucose 97 (74-99) mg/dL Calcium 9.5 (8.4-10.2) mg/dL Stool Occult Blood Positive (Negative) Blood Type Blood Type Confirm Blood Type Recheck Bld Type Recheck Status Antibody Screen Spec Expiration Date Critical Care Time Critical Care Time: Yes Total Critical Care Time: 33 Disposition Clinical Impression: GI bleed Disposition: ADMITTED IP TO THIS [facility] Condition: Fair Referrals: Ginna Martin DO [Primary Care Provider] - 1-2 days
[2021-05-22 12:30] LABS: Prothrombin Time 81.8 sec (9.0-12.0)
[2021-05-22 12:37] LABS: INR 8.4 (<1.2)
[2021-05-22 12:38] LABS: Partial Thromboplastin Time 52.4 sec (22.0-30.0)
[2021-05-22 12:51] LABS: Calcium 9.5 mg/dL (8.4-10.2); Potassium 4.6 mmol/L (3.5-5.1)
[2021-05-22] MEDS ORDERED: PHYTONADIONE 10 MG in SODIUM CHLORIDE 0.9% 50 ML IVPB STA (12:51)
[2021-05-22] MEDS ORDERED: PANTOPRAZOLE 40 MG/10 ML VIAL IVP STA (12:54)
[2021-05-22] MEDS ORDERED: NALOXONE 0.4 MG/ML 1 ML VIAL IV PRN (12:58)
[2021-05-22] MEDS: SODIUM CHLORIDE 0.9% 1,000 ML IV SCH (13:30)
[2021-05-22 16:46] LABS: Glucose,Whole Blood 111 mg/dL (75-99)
[2021-05-22] MEDS: ATORVASTATIN 20 MG TAB PO SCH (19:56)
[2021-05-22] MEDS: PANTOPRAZOLE 40 MG/10 ML VIAL IVP SCH (19:56)
[2021-05-22 20:12] LABS: Glucose,Whole Blood 85 mg/dL (75-99)
[2021-05-22] MEDS ORDERED: INSULIN DETEMIR (LEVEMIR) 100 UNIT/ML SYR SQ SCH (21:00)
[2021-05-22] MEDS ORDERED: NON FORMULARY DRUG (Omega-3 Fatty Acids/Fish Oil [Fish Oil 1,000 Mg Softgel] 1 EACH Capsul PO SCH (21:00)
--- NOTE | 2021-05-22 22:20 | HP ---
HISTORY AND PHYSICAL DATE OF SERVICE: 05/22/2021 CHIEF COMPLAINT: GI bleed. HISTORY OF PRESENT ILLNESS: This 76-year-old gentleman with a past medical history of atrial fibrillation, history of dementia, diabetes mellitus, hypertension, hyperlipidemia, DJD, history of prostate disorder, renal disease, history of MRSA, being followed by Dr. Martin and Dr. Decker in the outpatient setting, was complaining of lower GI bleed. The patient had GI bleed for the last 3 days; bright red blood per rectum. The patient apparently had EGD and colonoscopy performed last month which did not show any acute abnormality. There is no history of any fever, rigors or chills. No history of headache, loss of consciousness, seizures. Hemoglobin is 11.8. Stool OB is positive. COVID-19 is negative. INR was found to be 8.4 on admission. Creatinine was 2.25. The baseline creatinine was increasing for the past year. ASSESSMENT: 1. Acute lower gastrointestinal bleeding with acute blood loss anemia, possibly diverticular bleed. 2. Coumadin coagulopathy. 3. Increased creatinine with chronic kidney disease, stage 3. 4. History of atrial fibrillation. 5. Dementia. 6. Diabetes mellitus, type 2. 7. Hypertension. 8. Hyperlipidemia. 9. Degenerative joint disease. 10.History of renal disease. 11.History of cardiomegaly. 12.History of MRSA. 13.History of appendectomy. 14.History of degenerative joint disease. 15.Obesity with body mass index of 34.3. 16.FULL CODE. RECOMMENDATIONS AND DISCUSSION: In this 76-year-old gentleman who presented with multiple complex medical issues, we will monitor the patient closely. We will hold the Coumadin. Vitamin K has been given. Watch PT/INR closely. Gastroenterology consultation. Possible colonoscopy. Guarded prognosis because of multiple complex medical issues. Further recommendations to follow. A copy of this dictation is being forwarded to Dr. Martin, who is the primary physician. MMODL / IJN: [id number] /
[2021-05-22] MEDS: LOSARTAN 50 MG TAB PO SCH (23:43)
[2021-05-22] MEDS: INSULIN DETEMIR (LEVEMIR) 100 UNIT/ML SYR SQ SCH (23:43)
[2021-05-22] MEDS: metFORMIN 500 MG TAB PO SCH (23:43)
[2021-05-22] MEDS: cloNIDine HCL 0.1 MG TAB PO SCH (23:43)
[2021-05-23] MEDS: SODIUM CHLORIDE 0.9% 1,000 ML IV SCH (05:53)
[2021-05-23 06:02] LABS: Glucose,Whole Blood 69 mg/dL (75-99)
[2021-05-23 06:20] LABS: Glucose,Whole Blood 90 mg/dL (75-99)
[2021-05-23] MEDS: metFORMIN 500 MG TAB PO SCH (08:37)
[2021-05-23] MEDS: cloNIDine HCL 0.1 MG TAB PO SCH ×2 (08:37→20:18)
[2021-05-23] MEDS: CHOLECALCIFEROL 25 MCG (1000 IU) TABLET PO SCH (08:37)
[2021-05-23] MEDS: FUROSEMIDE 80 MG TAB PO SCH (08:37)
[2021-05-23] MEDS: CYANOCOBALAMIN 500 MCG TAB PO SCH (08:37)
[2021-05-23] MEDS: FENOFIBRATE 160 MG TAB PO SCH (08:37)
[2021-05-23] MEDS: POTASSIUM CHLORIDE ER 20 MEQ TAB.ER PO SCH (08:37)
[2021-05-23] MEDS: FERROUS SULFATE 325 MG TAB PO SCH (08:37)
[2021-05-23] MEDS: PYRIDOXINE 50 MG TAB PO SCH (08:38)
[2021-05-23] MEDS: PANTOPRAZOLE 40 MG/10 ML VIAL IVP SCH ×2 (08:38→20:19)
[2021-05-23] MEDS ORDERED: NON FORMULARY DRUG (Omega-3 Fatty Acids/Fish Oil [Fish Oil 1,000 Mg Softgel] 1 EACH Capsul PO SCH (09:00)
[2021-05-23] MEDS ORDERED: amLODIPine 10 MG TAB PO SCH (09:00)
[2021-05-23 09:03] LABS: Anisocytosis Slight; Basophils % (A) 0 %; Eosinophils # (A) 0.2 k/uL (0-0.7); Eosinophils % (A) 3 %; HGB 10.8 gm/dL (13.0-17.5); Lymphocytes % (A) 15 %; MCH 29.4 pg (25.0-35.0); MCHC 32.8 g/dL (31.0-37.0); MCV 89.7 fL (80.0-100.0); Mean Platelet Volume 7.7; Monocytes # (A) 0.3 k/uL (0-1.0); Monocytes % (A) 5 %; Neutrophils # (A) 5.2 k/uL (1.3-7.7); Neutrophils % (A) 76 %; Platelet Count 348 k/uL (150-450); RBC 3.68 m/uL (4.30-5.90); RDW 17.6 % (11.5-15.5); WBC 6.8 k/uL (3.8-10.6)
[2021-05-23 09:12] LABS: INR 1.4 (<1.2); Prothrombin Time 14.5 sec (9.0-12.0)
[2021-05-23 09:32] LABS: Calcium 8.8 mg/dL (8.4-10.2); Potassium 4.2 mmol/L (3.5-5.1)
[2021-05-23 11:35] LABS: Appearance,Urine Cloudy (Clear); Bacteria,Urine Rare /hpf; Bilirubin,Urine Negative (Negative); Blood,Urine Trace (Negative); Color,Urine Yellow; Glucose,Urine (UA) Negative (Negative); Hyaline Casts,Urine 3 /lpf (0-2); Ketones,Urine Negative (Negative); Leukocyte Esterase,Urine Small (Negative); Mucus,Urine Rare /hpf; Nitrite,Urine Negative (Negative); Protein,Urine 1+ (Negative); RBC,Urine 2 /hpf (0-5); Specific Gravity,Urine 1.015 (1.001-1.035); Urobilinogen,Urine <2.0 mg/dL (<2.0); WBC,Urine 3 /hpf (0-5)
[2021-05-23 11:41] LABS: Glucose,Whole Blood 102 mg/dL (75-99)
[2021-05-23 16:37] LABS: Glucose,Whole Blood 90 mg/dL (75-99)
--- NOTE | 2021-05-23 18:55 | P.GSCN ---
History of Present Illness Consult date: 05/23/21 Reason for Consult: Rectal bleeding History of present illness: 76-year-old male comes in the hospital with complaints of rectal bleeding. Ciera young had a recent episode about one month ago. Had an upper and lower endoscopy at that time that showed mild gastritis and diverticulosis without active bleeding. Patient is on Coumadin. INR significant only elevated at 8.4. We were consulted for GI bleed. Apparently he had 2 bowel today both had a small amount of blood. Denies abdominal pain. Review of Systems The patient denies any acute changes in vision or hearing, no dysphagia or odynophagia, no chest pain or shortness of breath, no dysuria or hematuria, no headache, no runny nose, no rectal bleeding, no unexplained weight loss Past Medical History Past Medical History: Atrial Fibrillation, Cancer, Dementia, Diabetes Mellitus, Hyperlipidemia, Hypertension, Osteoarthritis (OA), Prostate Disorder, Renal Disease Additional Past Medical History / Comment(s): enlarged heart, 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 Decker. 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 Past Drug Use History: None Reported - Past Family History Mother Family Medical History: Cancer Additional Family Medical History / Comment(s): stomach cancer Medications and Allergies Home Medications Medication Instructions Recorded Confirmed Type Aspirin [Adult Low Dose Aspirin EC] 81 mg PO DAILY 01/06/17 05/22/21 History Fenofibrate 160 mg PO DAILY 01/06/17 05/22/21 History Insulin Glargine,Hum.rec.anlog 34 units SQ HS 01/06/17 05/22/21 History [Touvi Solostindio] Metoprolol Succinate [Toprol XL] 50 mg PO DAILY 01/06/17 05/22/21 History Sandstone-3 Fatty Acids/Fish Oil [Fish 1 each PO HS 01/06/17 05/22/21 History Oil 1,000 mg Softgel] Sandstone-3 Fatty Acids/Fish Oil [Fish 2 cap PO QAM 01/06/17 05/22/21 History Oil 1,000 mg Softgel] Simvastatin [Zocor] 40 mg PO HS 01/06/17 05/22/21 History metFORMIN HCL [Glucophage] 1,000 mg PO BID@0900,2100 01/06/17 05/22/21 History Cyanocobalamin (Vitamin B-12) 1,000 mcg PO DAILY 12/01/18 05/22/21 History [Vitamin B-12] Irbesartan 300 mg PO HS 12/01/18 05/22/21 History Furosemide [Lasix] 80 mg PO DAILY 12/06/18 05/22/21 History Warfarin [Coumadin] 5 mg PO SUTUTHSA 12/06/18 05/22/21 History Potassium Chloride [Klor-Con 20] 20 mcg PO DAILY 01/09/21 05/22/21 History Pyridoxine HCl (Vitamin B6) 100 mg PO DAILY 01/09/21 05/22/21 History [Vitamin B-6] amLODIPine [Norvasc] 10 mg PO DAILY 01/09/21 05/22/21 History cloNIDine HCL [Catapres] 0.3 mg PO BID@0900,2100 01/09/21 05/22/21 History Ferrous Sulfate [Feosol] 325 mg PO DAILY 04/23/21 05/22/21 History Cholecalciferol [Vitamin D3 (25 50 mcg PO DAILY 05/22/21 05/22/21 History Mcg = 1000 Iu)] Warfarin [Coumadin] 2.5 mg PO MOWEFR 05/22/21 05/22/21 History Allergies Allergy/AdvReac Type Severity Reaction Status Date / Time bee venom protein (honey bee) Allergy Unknown PASSED OUT Verified 05/22/21 14:28 X2 Surgical - Exam Vital Signs Temp Pulse Resp BP Pulse Ox 98.4 F 73 18 133/84 100 05/22/21 11:43 05/22/21 11:43 05/22/21 11:43 05/22/21 11:43 05/22/21 11:43 Physical exam: General: Well-developed, well-nourished HEENT: Normocephalic, sclerae nonicteric Abdomen: Nontender, nondistended Extremities: No edema Neuro: Alert and oriented Results - Labs 05/23/21 07:42 05/23/21 07:42 Abnormal Lab Results - Last 24 Hours (Table) 05/23/21 05/23/21 05/23/21 Range/Units 06:01 07:42 07:42 RBC 3.68 L (4.30-5.90) m/uL Hgb 10.8 L (13.0-17.5) gm/dL Hct 33.0 L (39.0-53.0) % RDW 17.6 H (11.5-15.5) % PT (9.0-12.0) sec INR (<1.2) BUN 47 H (9-20) mg/dL Creatinine 3.05 H (0.66-1.25) mg/dL POC Glucose (mg/dL) 69 L (75-99) mg/dL Urine Protein (Negative) Urine Blood (Negative) Ur Leukocyte Esterase (Negative) Urine Bacteria (None) /hpf Hyaline Casts (0-2) /lpf Urine Mucus (None) /hpf 05/23/21 05/23/21 05/23/21 Range/Units 07:42 09:30 11:40 RBC (4.30-5.90) m/uL Hgb (13.0-17.5) gm/dL Hct (39.0-53.0) % RDW (11.5-15.5) % PT 14.5 H (9.0-12.0) sec INR 1.4 H (<1.2) BUN (9-20) mg/dL Creatinine (0.66-1.25) mg/dL POC Glucose (mg/dL) 102 H (75-99) mg/dL Urine Protein 1+ H (Negative) Urine Blood Trace H (Negative) Ur Leukocyte Esterase Small H (Negative) Urine Bacteria Rare H (None) /hpf Hyaline Casts 3 H (0-2) /lpf Urine Mucus Rare H (None) /hpf Diabetes panel 05/23/21 Range/Units 07:42 Sodium 138 (137-145) mmol/L Potassium 4.2 (3.5-5.1) mmol/L Chloride 106 (98-107) mmol/L Carbon Dioxide 24 (22-30) mmol/L BUN 47 H (9-20) mg/dL Creatinine 3.05 H (0.66-1.25) mg/dL Glucose 97 (74-99) mg/dL Calcium 8.8 (8.4-10.2) mg/dL Thyroid panel 05/23/21 Range/Units 07:42 TSH 3.810 (0.465-4.680) mIU/L Calcium panel 05/23/21 Range/Units 07:42 Calcium 8.8 (8.4-10.2) mg/dL Pituitary panel 05/23/21 Range/Units 07:42 Sodium 138 (137-145) mmol/L Potassium 4.2 (3.5-5.1) mmol/L Chloride 106 (98-107) mmol/L Carbon Dioxide 24 (22-30) mmol/L BUN 47 H (9-20) mg/dL Creatinine 3.05 H (0.66-1.25) mg/dL Glucose 97 (74-99) mg/dL Calcium 8.8 (8.4-10.2) mg/dL TSH 3.810 (0.465-4.680) mIU/L Adrenal panel 05/23/21 Range/Units 07:42 Sodium 138 (137-145) mmol/L Potassium 4.2 (3.5-5.1) mmol/L Chloride 106 (98-107) mmol/L Carbon Dioxide 24 (22-30) mmol/L BUN 47 H (9-20) mg/dL Creatinine 3.05 H (0.66-1.25) mg/dL Glucose 97 (74-99) mg/dL Calcium 8.8 (8.4-10.2) mg/dL Assessment and Plan (1) GI bleed Narrative/Plan: 76-year-old male with recurrent GI bleed. Likely secondary to hypercoagulable state. Recheck hemoglobin tomorrow. Gradually advance diet as tolerated. Current Visit: Yes Status: Acute Code(s): K92.2 - GASTROINTESTINAL HEMORRHAGE, UNSPECIFIED SNOMED Code(s): 49696792
--- NOTE | 2021-05-23 19:31 | PN ---
PROGRESS NOTE DATE OF SERVICE: 05/23/2021 This 76-year-old gentleman was admitted with GI bleed, is being closely monitored at this time. The hemoglobin is 10.8 today. INR is 1.4, which is improved. Creatinine 3.04. No chest pain. No palpitations. No fever. PHYSICAL EXAMINATION: Alert and oriented x3. Pulse is 57, blood pressure 161/89, respirations 16, temperature 96.7, pulse ox 97% on room air. HEENT: Conjunctivae normal. Oral mucosa moist. NECK: No jugular venous distention. No lymph node enlargement. CARDIOVASCULAR: S1, S2, muffled. No S3, no S4, RESPIRATORY: Diminished breath sounds at the bases. A few scattered rhonchi. ABDOMEN: Soft, nontender. LEGS: No edema, no swelling. NERVOUS SYSTEM: No focal deficits. LABS: WBC 6.8, hemoglobin 10.8. INR noted. ASSESSMENT: 1. Acute lower GI bleeding with acute blood loss anemia, possibly diverticular bleed. 2. Coumadin coagulopathy, improving. 3. Increased creatinine with chronic kidney stage 4. 4. History atrial fibrillation. 5. Dementia. 6. Diabetes mellitus type 2. 7. Hypertension. 8. Hyperlipidemia. 9. History of DJD. 10.History of renal disease. 11.History of cardiomegaly. 12.History of MRSA. 13.History of appendectomy. 14.Obesity with body mass index 34.6. 15.FULL CODE. RECOMMENDATIONS: Recommend to continue current management and continue symptomatic treatment. Surgical evaluation. Repeat labs in the morning. Continue rest of medications. PT/INR will be monitored. Further recommendation to follow. MMODL / IJN: [id number] /
[2021-05-23 20:01] LABS: Glucose,Whole Blood 181 mg/dL (75-99)
[2021-05-23] MEDS: ATORVASTATIN 20 MG TAB PO SCH (20:18)
[2021-05-23] MEDS: LOSARTAN 50 MG TAB PO SCH (20:18)
[2021-05-23] MEDS: INSULIN DETEMIR (LEVEMIR) 100 UNIT/ML SYR SQ SCH (20:19)
[2021-05-24] MEDS: SODIUM CHLORIDE 0.9% 1,000 ML IV SCH ×3 (04:33→20:15)
[2021-05-24 06:08] LABS: Glucose,Whole Blood 61 mg/dL (75-99)
[2021-05-24 06:27] LABS: Glucose,Whole Blood 77 mg/dL (75-99)
[2021-05-24 08:48] LABS: Anisocytosis Slight; Basophils % (A) 0 %; Eosinophils # (A) 0.1 k/uL (0-0.7); Eosinophils % (A) 1 %; HCT 31.2 % (39.0-53.0); HGB 10.1 gm/dL (13.0-17.5); Lymphocytes # (A) 0.5 k/uL (1.0-4.8); Lymphocytes % (A) 7 %; MCH 29.6 pg (25.0-35.0); MCHC 32.5 g/dL (31.0-37.0); MCV 91.2 fL (80.0-100.0); Mean Platelet Volume 7.5; Monocytes # (A) 0.3 k/uL (0-1.0); Monocytes % (A) 5 %; Neutrophils # (A) 6.5 k/uL (1.3-7.7); Neutrophils % (A) 87 %; Platelet Count 265 k/uL (150-450); RBC 3.42 m/uL (4.30-5.90); RDW 17.1 % (11.5-15.5); WBC 7.4 k/uL (3.8-10.6)
[2021-05-24] MEDS: cloNIDine HCL 0.1 MG TAB PO SCH ×2 (09:08→20:14)
[2021-05-24] MEDS: CHOLECALCIFEROL 25 MCG (1000 IU) TABLET PO SCH (09:08)
[2021-05-24] MEDS: POTASSIUM CHLORIDE ER 20 MEQ TAB.ER PO SCH (09:09)
[2021-05-24] MEDS: PANTOPRAZOLE 40 MG/10 ML VIAL IVP SCH ×2 (09:09→20:14)
[2021-05-24] MEDS: FERROUS SULFATE 325 MG TAB PO SCH (09:09)
[2021-05-24] MEDS: FENOFIBRATE 160 MG TAB PO SCH (09:09)
[2021-05-24] MEDS: FUROSEMIDE 80 MG TAB PO SCH (09:09)
[2021-05-24] MEDS: PYRIDOXINE 50 MG TAB PO SCH (09:09)
[2021-05-24] MEDS: CYANOCOBALAMIN 500 MCG TAB PO SCH (09:09)
[2021-05-24 09:15] LABS: Calcium 8.8 mg/dL (8.4-10.2); Potassium 3.9 mmol/L (3.5-5.1)
--- NOTE | 2021-05-24 11:05 | P.PN ---
Subjective Progress Note Date: 05/24/21 Principal diagnosis: GI bleed Patient doing well today. Hemoglobin 10.1 from 10.8. Says he had a small amount of blood in his stool this morning. He is hungry for solid foods. Denies pain. INR was normal yesterday. No repeat INR yet today Objective - Vital Signs Vital signs: Vital Signs Temp 97.8 F 05/24/21 09:05 Pulse 56 L 05/24/21 09:05 Resp 18 05/24/21 09:05 BP 122/63 05/24/21 09:05 Pulse Ox 97 05/24/21 09:05 Intake & Output 05/23/21 05/24/21 05/24/21 18:59 06:59 18:59 Intake Total 180 180 Balance 180 180 Weight 111.3 kg Intake: Oral 180 180 Other: Voiding Method Toilet Toilet Toilet # Voids 1 3 # Bowel Movements 1 1 - Exam Abdomen: Soft, nondistended, nontender - Labs CBC & Chem 7: 05/24/21 07:32 05/24/21 07:32 Labs: Abnormal Lab Results - Last 24 Hours (Table) 05/23/21 05/23/21 05/23/21 Range/Units 09:30 11:40 19:59 RBC (4.30-5.90) m/uL Hgb (13.0-17.5) gm/dL Hct (39.0-53.0) % RDW (11.5-15.5) % Lymphocytes # (1.0-4.8) k/uL BUN (9-20) mg/dL Creatinine (0.66-1.25) mg/dL POC Glucose (mg/dL) 102 H 181 H (75-99) mg/dL Urine Protein 1+ H (Negative) Urine Blood Trace H (Negative) Ur Leukocyte Esterase Small H (Negative) Urine Bacteria Rare H (None) /hpf Hyaline Casts 3 H (0-2) /lpf Urine Mucus Rare H (None) /hpf 05/24/21 05/24/21 05/24/21 Range/Units 06:07 07:32 07:32 RBC 3.42 L (4.30-5.90) m/uL Hgb 10.1 L (13.0-17.5) gm/dL Hct 31.2 L (39.0-53.0) % RDW 17.1 H (11.5-15.5) % Lymphocytes # 0.5 L (1.0-4.8) k/uL BUN 45 H (9-20) mg/dL Creatinine 2.67 H (0.66-1.25) mg/dL POC Glucose (mg/dL) 61 L (75-99) mg/dL Urine Protein (Negative) Urine Blood (Negative) Ur Leukocyte Esterase (Negative) Urine Bacteria (None) /hpf Hyaline Casts (0-2) /lpf Urine Mucus (None) /hpf Assessment and Plan (1) GI bleed Narrative/Plan: Patient doing well today. Will advance diet to regular. Monitor for recurrent bleeding. Check INR level. Current Visit: Yes Status: Acute Code(s): K92.2 - GASTROINTESTINAL HEMORRHAGE, UNSPECIFIED SNOMED Code(s): 24799135
[2021-05-24 11:59] LABS: Glucose,Whole Blood 123 mg/dL (75-99)
[2021-05-24 16:09] LABS: Glucose,Whole Blood 173 mg/dL (75-99)
[2021-05-24] MEDS ORDERED: WARFARIN 5 MG TAB PO ONE (18:00)
[2021-05-24] MEDS ORDERED: WARFARIN 2.5 MG TAB PO SCH (18:00)
[2021-05-24] MEDS: LOSARTAN 50 MG TAB PO SCH (20:14)
[2021-05-24] MEDS: ATORVASTATIN 20 MG TAB PO SCH (20:14)
[2021-05-24] MEDS: INSULIN DETEMIR (LEVEMIR) 100 UNIT/ML SYR SQ SCH (20:15)
[2021-05-24 20:18] LABS: Glucose,Whole Blood 211 mg/dL (75-99)
--- NOTE | 2021-05-24 20:27 | PN ---
PROGRESS NOTE DATE OF SERVICE: 05/24/2001 This 76-year-old gentleman was admitted with acute lower GI bleeding with acute blood loss anemia as well. Hemoglobin is 10.1 today. The patient's INR being reversed 1.4 the last value. No chest pain. No palpitations. No fever. PHYSICAL EXAMINATION: Alert and oriented x3. Pulse 76, blood pressure 130/70, respiration 18, temperature 98 degrees, pulse ox 98% on room air. HEENT: Conjunctivae normal. Oral mucosa moist. NECK: No jugular venous distention. No lymph node enlargement. CARDIOVASCULAR: S1, S2, muffled. No S3, no S4, RESPIRATORY: Diminished breath sounds at the bases. ABDOMEN: Soft, nontender. LEGS: No edema, no swelling. NERVOUS SYSTEM: No focal deficits. LABS: Hemoglobin 10.1. Other labs are noted. ASSESSMENT: 1. Acute lower GI bleeding with acute blood loss anemia, possibly diverticular bleed. 2. Coumadin coagulopathy, present on admission, improving. 3. Increased creatinine with chronic kidney stage 4. 4. History of atrial fibrillation. 5. Dementia. 6. Diabetes mellitus type 2. 7. Hypertension. 8. Hyperlipidemia. 9. History of DJD. 10.History of renal disease. 11.History of cardiomegaly. 12.History of MRSA. 13.History of appendectomy. 14.Obesity with body mass index of 34.6. 15.FULL CODE. RECOMMENDATIONS: Recommend to continue current management, continue symptomatic treatment. Repeat labs. Otherwise, will cut down the dose of Coumadin to 2.5 daily and continue to monitor. Further recommendations to follow. MMODL / IJN: [id number] /
[2021-05-24 20:45] LABS: INR 1.1 (<1.2); Prothrombin Time 11.6 sec (9.0-12.0)
[2021-05-25 06:12] LABS: Glucose,Whole Blood 58 mg/dL (75-99)
[2021-05-25 06:26] LABS: Glucose,Whole Blood 71 mg/dL (75-99)
[2021-05-25 07:51] LABS: Anisocytosis Slight; Basophils % (A) 0 %; Eosinophils # (A) 0.2 k/uL (0-0.7); Eosinophils % (A) 3 %; HCT 30.4 % (39.0-53.0); Lymphocytes # (A) 0.8 k/uL (1.0-4.8); Lymphocytes % (A) 12 %; MCH 29.6 pg (25.0-35.0); MCHC 32.9 g/dL (31.0-37.0); MCV 89.8 fL (80.0-100.0); Mean Platelet Volume 7.6; Monocytes # (A) 0.3 k/uL (0-1.0); Monocytes % (A) 5 %; Neutrophils # (A) 5.1 k/uL (1.3-7.7); Neutrophils % (A) 79 %; Platelet Count 278 k/uL (150-450); RBC 3.39 m/uL (4.30-5.90); RDW 17.6 % (11.5-15.5); WBC 6.4 k/uL (3.8-10.6)
[2021-05-25 08:00] LABS: Calcium 8.7 mg/dL (8.4-10.2); Potassium 3.7 mmol/L (3.5-5.1)
[2021-05-25 08:03] LABS: INR 1.2 (<1.2)
[2021-05-25] MEDS: CHOLECALCIFEROL 25 MCG (1000 IU) TABLET PO SCH (09:02)
[2021-05-25] MEDS: PYRIDOXINE 50 MG TAB PO SCH (09:02)
[2021-05-25] MEDS: POTASSIUM CHLORIDE ER 20 MEQ TAB.ER PO SCH (09:02)
[2021-05-25] MEDS: PANTOPRAZOLE 40 MG/10 ML VIAL IVP SCH (09:02)
[2021-05-25] MEDS: CYANOCOBALAMIN 500 MCG TAB PO SCH (09:03)
[2021-05-25] MEDS: FENOFIBRATE 160 MG TAB PO SCH (09:03)
[2021-05-25] MEDS: FUROSEMIDE 80 MG TAB PO SCH (09:03)
[2021-05-25] MEDS: cloNIDine HCL 0.1 MG TAB PO SCH (09:03)
[2021-05-25] MEDS: FERROUS SULFATE 325 MG TAB PO SCH (09:03)
[2021-05-25] MEDS: SODIUM CHLORIDE 0.9% 1,000 ML IV SCH (09:09)
--- NOTE | 2021-05-25 10:14 | P.DS ---
Providers Date of admission: 05/22/21 12:58 Attending physician: Paolo Rouse Consults: 05/22/21 12:54 Consult Physician Routine Consulting Provider: Elham Butterfield Consult Reason/Comments: GI bleed Do you want consulting provider notified?: Yes 05/23/21 12:08 Consult Physician Routine Consulting Provider: Xavier Snowden Consult Reason/Comments: GI bleed Do you want consulting provider notified?: Yes Primary care physician: Ginna [facility] Course: 76-year-old male admitted for lower GI bleed blood in the stools. General surgery evaluate the patient we do not have any GI service during this week. Patient is found to have elevated INR of around 8 patient was given vitamin K, INR has come down. Present INR is 1.2 patient was resumed on a lower dose of Coumadin which is 2.5 mg daily patient will get an INR recheck in about 3 days patient does have history of atrial fibrillation. Patient does have history of congestive heart failure as well as still has some pedal edema patient appears to have chronic diastolic dysfunction. Patient has chronic kidney disease stage IV with baseline creatinine of around 2.2 present creatinine is around 2.5. Patient was hypotensive because of which amlodipine was discontinued and patient is on multiple other antidepressive medications which are being continued at this time. Patient does have history of atrial fibrillation. Patient blood sugars were also low because of which is long-acting insulin is being cut down from 34 units to 12 units and the patient is not a candidate for metformin which is being discontinued at this time. PHYSICAL EXAMINATION: GENERAL: The patient is alert and oriented x3, not in any acute distress. Well developed, well nourished. Obese HEENT: Pupils are round and equally reacting to light. EOMI. No scleral icterus. No conjunctival pallor. Normocephalic, atraumatic. No pharyngeal erythema. No thyromegaly. CARDIOVASCULAR: S1 and S2 present. No murmurs, rubs, or gallops. PULMONARY: Chest is clear to auscultation, no wheezing or crackles. ABDOMEN: Soft, nontender, nondistended, normoactive bowel sounds. No palpable organomegaly. MUSCULOSKELETAL: No joint swelling or deformity. EXTREMITIES: No cyanosis, clubbing patient does have bilateral lower extremity pedal edema NEUROLOGICAL: Gross neurological examination did not reveal any focal deficits. SKIN: No rashes. Assessment and plan -Lower GI bleed secondary disorder that we can probably diverticular resolved -Coumadin: Dose of Coumadin is being decreased [place]-chronic kidney disease stage IV -Atrial fibrillation -Type 2 diabetes mellitus -Congestive heart failure possible chronic diastolic dysfunction without any significant exacerbation -Hypertension -Hyperlipidemia Patient Condition at Discharge: Fair Plan - Discharge Summary New Discharge Prescriptions: New Warfarin [Coumadin] 2.5 mg PO DAILY@1800 tab Continue [place]-3 Fatty Acids/Fish Oil [Fish Oil 1,000 mg Softgel] 1 each PO HS [place]-3 Fatty Acids/Fish Oil [Fish Oil 1,000 mg Softgel] 2 cap PO QAM Metoprolol Succinate [Toprol XL] 50 mg PO DAILY Aspirin [Adult Low Dose Aspirin EC] 81 mg PO DAILY Simvastatin [Zocor] 40 mg PO HS Fenofibrate 160 mg PO DAILY Irbesartan 300 mg PO HS Cyanocobalamin (Vitamin B-12) [Vitamin B-12] 1,000 mcg PO DAILY Furosemide [Lasix] 80 mg PO DAILY Pyridoxine HCl (Vitamin B6) [Vitamin B-6] 100 mg PO DAILY cloNIDine HCL [Catapres] 0.3 mg PO BID@0900,2100 Potassium Chloride [Klor-Con 20] 20 mcg PO DAILY Ferrous Sulfate [Iron (65 MG Elemental)] 325 mg PO DAILY Cholecalciferol [Vitamin D3 (25 Mcg = 1000 Iu)] 50 mcg PO DAILY Changed Insulin Glargine,Hum.rec.anlog [Toindigo Sollaurenar] 12 units SQ HS #0 Discontinued metFORMIN HCL [Glucophage] 1,000 mg PO BID@0900,2100 Warfarin [Coumadin] 5 mg PO SUTUTHSA Warfarin [Coumadin] 2.5 mg PO MOWEFR amLODIPine [Norvasc] 10 mg PO DAILY Discharge Medication List Aspirin [Adult Low Dose Aspirin EC] 81 mg PO DAILY 01/06/17 [History] Fenofibrate 160 mg PO DAILY 01/06/17 [History] Metoprolol Succinate [Toprol XL] 50 mg PO DAILY 01/06/17 [History] [place]-3 Fatty Acids/Fish Oil [Fish Oil 1,000 mg Softgel] 1 each PO HS 01/06/17 [History] [place]-3 Fatty Acids/Fish Oil [Fish Oil 1,000 mg Softgel] 2 cap PO QAM 01/06/17 [History] Simvastatin [Zocor] 40 mg PO HS 01/06/17 [History] Cyanocobalamin (Vitamin B-12) [Vitamin B-12] 1,000 mcg PO DAILY 12/01/18 [History] Irbesartan 300 mg PO HS 12/01/18 [History] Furosemide [Lasix] 80 mg PO DAILY 12/06/18 [History] Potassium Chloride [Klor-Con 20] 20 mcg PO DAILY 01/09/21 [History] Pyridoxine HCl (Vitamin B6) [Vitamin B-6] 100 mg PO DAILY 01/09/21 [History] cloNIDine HCL [Catapres] 0.3 mg PO BID@0900,2100 01/09/21 [History] Ferrous Sulfate [Iron (65 MG Elemental)] 325 mg PO DAILY 04/23/21 [History] Cholecalciferol [Vitamin D3 (25 Mcg = 1000 Iu)] 50 mcg PO DAILY 05/22/21 [History] Insulin Glargine,Hum.rec.anlog [Christin [place]] 12 units SQ HS #0 05/25/21 [Rx] Warfarin [Coumadin] 2.5 mg PO DAILY@1800 tab 05/25/21 [Rx] Follow up Appointment(s)/Referral(s): Ginna Martin DO [Primary Care Provider] - 3 Days Ambulatory/Diagnostic Orders: Prothrombin Time INR [LAB.AMB] Time Frame: 3 Days, Location: None Selected Discharge Disposition: HOME WITH HOME HEALTH SERVICES
[2021-05-25 10:45] VITALS: BP 125/71; PULSE 68; RESP 20; TEMP 97.6
--- NOTE | 2021-05-25 11:55 | P.PN ---
Subjective Progress Note Date: 05/25/21 CHIEF COMPLAINT: GI bleed HISTORY OF PRESENT ILLNESS: Patient reports no further blood in his stools. De nies any blood per rectum. Denies any abdominal pain. He did have previous endoscopies in March that had shown gastritis and diverticulosis. Patient is tolerating a regular diet. Afebrile. WBC 6.4 hemoglobin is 10. INR 1.2 Patient is anticipating discharge today. Patient seen and examined with Dr. yepez PHYSICAL EXAM: VITAL SIGNS: Reviewed. GENERAL: Well-developed in no acute distress. HEENT: No sclera icterus. Extraocular movements grossly intact. Moist buccal mucosa. Head is atraumatic, normocephalic. ABDOMEN: Soft. Nondistended. Nontender. NEUROLOGIC: Alert and oriented. Cranial nerves II through XII grossly intact. ASSESSMENT: 1. Acute lower GI bleed likely secondary to diverticular bleed and coagulopathy. Symptoms resolved. INR improved. PLAN: -Patient can be discharge from surgical standpoint -Patient to follow up with Dr. yepez in 1 week Physician Lye Treater note has been reviewed by physician. Signing provider agrees with the documented findings, assessment, and plan of care. Objective - Vital Signs Vital signs: Vital Signs Temp 97.6 F 05/25/21 08:00 Pulse 68 05/25/21 08:00 Resp 20 05/25/21 08:00 BP 125/71 05/25/21 08:00 Pulse Ox 97 05/25/21 08:00 Intake & Output 05/24/21 05/25/21 05/25/21 18:59 06:59 18:59 Intake Total 900 Balance 900 Intake: Oral 900 Other: Voiding Method Toilet Toilet # Voids 3 1 # Bowel Movements 2 - Labs CBC & Chem 7: 05/25/21 07:08 05/25/21 07:08 Labs: Abnormal Lab Results - Last 24 Hours (Table) 05/24/21 05/24/21 05/24/21 Range/Units 11:57 16:07 20:16 RBC (4.30-5.90) m/uL Hgb (13.0-17.5) gm/dL Hct (39.0-53.0) % RDW (11.5-15.5) % Lymphocytes # (1.0-4.8) k/uL INR (<1.2) BUN (9-20) mg/dL Creatinine (0.66-1.25) mg/dL POC Glucose (mg/dL) 123 H 173 H 211 H (75-99) mg/dL 05/25/21 05/25/21 05/25/21 Range/Units 06:10 06:24 07:08 RBC 3.39 L (4.30-5.90) m/uL Hgb 10.0 L (13.0-17.5) gm/dL Hct 30.4 L (39.0-53.0) % RDW 17.6 H (11.5-15.5) % Lymphocytes # 0.8 L (1.0-4.8) k/uL INR (<1.2) BUN (9-20) mg/dL Creatinine (0.66-1.25) mg/dL POC Glucose (mg/dL) 58 L 71 L (75-99) mg/dL 05/25/21 05/25/21 Range/Units 07:08 07:08 RBC (4.30-5.90) m/uL Hgb (13.0-17.5) gm/dL Hct (39.0-53.0) % RDW (11.5-15.5) % Lymphocytes # (1.0-4.8) k/uL INR 1.2 H (<1.2) BUN 36 H (9-20) mg/dL Creatinine 2.50 H (0.66-1.25) mg/dL POC Glucose (mg/dL) (75-99) mg/dL
== END 2021-05-25 12:17 | disposition home health service (06) | DRG 378 ==
LOC: SUPCPDRO 11:17 → EC 11:17 → 3SCARD 12:58
PROVIDERS: ADMIT Internal Medicine; ATTEND Internal Medicine
DX: K57.91 Diverticulosis of intestine, part unspecified, without perforation or abscess with bleeding (principal); D62 Acute posthemorrhagic anemia; D68.59 Other primary thrombophilia; I13.0 Hypertensive heart and chronic kidney disease with heart failure and stage 1 through stage 4 chronic kidney disease, or unspecified chronic kidney disease; I50.32 Chronic diastolic (congestive) heart failure; N18.4 Chronic kidney disease, stage 4 (severe); T45.515A Adverse effect of anticoagulants, initial encounter; Z20.822 Contact with and (suspected) exposure to COVID-19; E11.22 Type 2 diabetes mellitus with diabetic chronic kidney disease; E66.9 Obesity, unspecified; Z68.34 Body mass index [BMI] 34.0-34.9, adult; Z90.49 Acquired absence of other specified parts of digestive tract; E78.5 Hyperlipidemia, unspecified; M19.90 Unspecified osteoarthritis, unspecified site; F03.90 Unspecified dementia, unspecified severity, without behavioral disturbance, psychotic disturbance, mood disturbance, and anxiety; H54.7 Unspecified visual loss; I48.91 Unspecified atrial fibrillation; K29.70 Gastritis, unspecified, without bleeding; Z79.01 Long term (current) use of anticoagulants; Z79.82 Long term (current) use of aspirin; Z79.84 Long term (current) use of oral hypoglycemic drugs; Z79.899 Other long term (current) drug therapy; Z85.46 Personal history of malignant neoplasm of prostate; Z86.14 Personal history of Methicillin resistant Staphylococcus aureus infection; Z87.891 Personal history of nicotine dependence; Z92.3 Personal history of irradiation; Z91.030 Bee allergy status; Z96.643 Presence of artificial hip joint, bilateral; R79.1 Abnormal coagulation profile
CPT/HCPCS: 36415; 80048; 81001; 82272; 84443; 85025; 85610; 85730; 86850; 86900; 86901; 87635; 93005; 96361; 96365; 96375; 99291

== ENCOUNTER → 2021-06-24 | Outpatient (CLI) | payer MEDICARE ==
--- NOTE | 2021-06-24 12:37 | CT ---
EXAMINATION TYPE: CT pelvis wo con DATE OF EXAM: 06/24/2021 COMPARISON: 09/11/2020 HISTORY: prostate CA CT DLP: 966.2 mGycm Examination of the solid and hollow viscera is limited given the lack of contrast. Unenhanced CT of t he pelvis was performed. The lack of contrast limits evaluation. FINDINGS: BOWEL: Visualized bowel loops are of normal caliber. Kidneys are free of hydronephrosis, nephrolithiasis or renal mass. Lymph nodes: No evidence for adenopathy greater than 1 cm. Abdominal aorta: Atheromatous changes seen. No evidence for aneurysm. Genital organs: No significant abnormality. Other: Postoperative changes of bilateral hip prostheses. Large fluid collection noted about the left hip measuring approximately 22.2 x 15.2 cm. There is interval enlargement relative to the prior stud y. Streak artifact limits evaluation of the pelvis. Severe degenerative change lumbar spine. IMPRESSION: 1. Limited evaluation of the pelvis given extensive streak artifact. 2. Large fluid collection about the left hip may reflect seroma or hematoma. There is interval enlarg ement noted.
== END | disposition home or self-care (01) ==
LOC: RADCTMAIN 11:45
PROVIDERS: ATTEND Internal Medicine
DX: C61 Malignant neoplasm of prostate (principal)
CPT/HCPCS: 72192

== ENCOUNTER 2021-08-11 11:30 | Inpatient (IN) | payer MEDICARE ==
[2021-08-11] MEDS ORDERED: MORPHINE SULFATE 4 MG/ML SYRINGE IM STA (12:04)
--- NOTE | 2021-08-11 12:21 | ED ---
General Adult HPI - General Chief complaint: Extremity Problem,Nontraumatic Stated complaint: unable to walk Time Seen by Provider: 08/11/21 11:47 Source: patient, family Mode of arrival: wheelchair - History of Present Illness Initial comments: 76-year-old male with a complicated past medical history including atrial fibrillation currently on Coumadin presents to the emergency room for a chief complaint Of left leg swelling. Patient states for the past 2 days he has had left leg swelling and left inner thigh pain. He states that the leg hurts to walk on. Patient did have his Coumadin levels checked yesterday and they were 2.8. She did have a pain shot at his doctor's office yesterday but it didn't seem to help much. States that Tylenol does seem to help somewhat.Patient has no other complaints at this time including shortness of breath, chest pain, abdominal pain, nausea or vomiting, headache, or visual changes. - Related Data Home Medications Medication Instructions Recorded Confirmed Aspirin [Adult Low Dose Aspirin EC] 81 mg PO DAILY 01/06/17 08/11/21 Fenofibrate 160 mg PO DAILY 01/06/17 08/11/21 [place]-3 Fatty Acids/Fish Oil [Fish 1 cap PO HS 01/06/17 08/11/21 Oil 1,000 mg Softgel] [place]-3 Fatty Acids/Fish Oil [Fish 2 cap PO DAILY 01/06/17 08/11/21 Oil 1,000 mg Softgel] Simvastatin [Zocor] 40 mg PO HS 01/06/17 08/11/21 Cyanocobalamin (Vitamin B-12) 1,000 mcg PO DAILY 12/01/18 08/11/21 [Vitamin B-12] Irbesartan 300 mg PO HS 12/01/18 08/11/21 Pyridoxine HCl (Vitamin B6) 100 mg PO DAILY 01/09/21 08/11/21 [Vitamin B-6] Ferrous Sulfate [Iron (65 MG 325 mg PO DAILY 04/23/21 08/11/21 Elemental)] Cholecalciferol [Vitamin D3 (25 50 mcg PO DAILY 05/22/21 08/11/21 Mcg = 1000 Iu)] Furosemide [Lasix] 80 mg PO DAILY 08/11/21 08/11/21 Insulin Glargine,Hum.rec.anlog 34 units SQ HS 08/11/21 08/11/21 [Christin [place]] Metoprolol Succinate [Toprol XL] 50 mg PO DAILY 08/11/21 08/11/21 Potassium Chloride [Klor-Con 10 ER] 10 meq PO DAILY 08/11/21 08/11/21 Sertraline [Zoloft] 50 mg PO BID 08/11/21 08/11/21 Warfarin [Coumadin] 2.5 mg PO SUTUTHFRSA@0900 08/11/21 08/11/21 Warfarin [Coumadin] 5 mg PO MOWE@0900 08/11/21 08/11/21 amLODIPine [Norvasc] 10 mg PO DAILY 08/11/21 08/11/21 cloNIDine HCL [Catapres] 0.3 mg PO BID 08/11/21 08/11/21 metFORMIN HCL ER [Glucophage XR] 1,000 mg PO BID 08/11/21 08/11/21 Allergies Allergy/AdvReac Type Severity Reaction Status Date / Time bee venom protein (honey bee) Allergy Unknown PASSED OUT Verified 08/11/21 11:45 X2 Review of Systems ROS Statement: Those systems with pertinent positive or pertinent negative responses have been documented in the HPI. ROS Other: All systems not noted in ROS Statement are negative. 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 Decker. History of Any Multi-Drug Resistant Organisms: MRSA Date of last positivie culture/infection: over 10 yrs (2008?) MDRO Source:: Leg Past Surgical History: Appendectomy, Joint Replacement, Orthopedic Surgery Additional Past Surgical History / Comment(s): left shoulder surgery, surgery rt eye from metal in eye, left carpal tunnel, shabana hip replacements Past Anesthesia/Blood Transfusion Reactions: No Reported Reaction Past Psychological History: No Psychological Hx Reported Smoking Status: Former smoker Past Alcohol Use History: None Reported Past Drug Use History: None Reported - Past Family History Mother Family Medical History: Cancer Additional Family Medical History / Comment(s): stomach cancer General Exam General appearance: alert, in no apparent distress Head exam: Present: atraumatic Eye exam: Present: normal appearance, PERRL, EOMI. Absent: scleral icterus, conjunctival injection ENT exam: Present: normal exam, mucous membranes moist Neck exam: Present: normal inspection, full ROM. Absent: tenderness Respiratory exam: Present: normal lung sounds bilaterally. Absent: respiratory distress, wheezes Cardiovascular Exam: Present: regular rate, normal rhythm, normal heart sounds GI/Abdominal exam: Present: soft, normal bowel sounds. Absent: distended, tenderness Extremities exam: Present: normal capillary refill (DP and PT signals evident by Doppler), other (Mild edema noted of the left leg.). Absent: tenderness Course Vital Signs 08/11/21 11:41 Temperature 97.7 F Pulse Rate 55 L Respiratory 18 Rate Blood Pressure 110/67 O2 Sat by Pulse 99 Oximetry Medical Decision Making - Medical Decision Making Vitals are stable. CBC is unremarkable. CMP does reveal chronic kidney disease. INR 3.3, patient does take Coumadin for atrial fibrillation. Review of the lumbar spine shows no new vertebral compression collapse or malalignment. 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 This measured 28.7 cm. I did review previous CAT scan from May which showed a large left hip fluid collection measuring 22.2 cm x 15 cm which could be seroma or hematoma. Today ultrasound was performed of the left leg which did not show a DVT but did reveal a very large fluid collection extending from the groin to the left hip that could be a hematoma versus seroma versus pseudotumor from hip surgery 20 years ago. Case was discussed with Dr. Lora, as this is been ongoing for some time without success and outpatient follow-up and history of being on Coumadin recommending inpatient management. I spoke with Dr. Butler who does accept patient. We will consult orthopedics. Patient does not currently have an orthopedic physician. - Lab Data Result diagrams: 08/11/21 12:44 08/11/21 12:44 Lab Results 08/11/21 08/11/21 08/11/21 Range/Units 12:44 12:44 12:44 WBC 8.4 (3.8-10.6) k/uL RBC 3.58 L (4.30-5.90) m/uL Hgb 11.0 L (13.0-17.5) gm/dL Hct 33.9 L (39.0-53.0) % MCV 94.6 (80.0-100.0) fL MCH 30.7 (25.0-35.0) pg MCHC 32.5 (31.0-37.0) g/dL RDW 14.4 (11.5-15.5) % Plt Count 265 (150-450) k/uL MPV 7.9 Neutrophils % 86 % Lymphocytes % 8 % Monocytes % 3 % Eosinophils % 2 % Basophils % 0 % Neutrophils # 7.2 (1.3-7.7) k/uL Lymphocytes # 0.7 L (1.0-4.8) k/uL Monocytes # 0.3 (0-1.0) k/uL Eosinophils # 0.1 (0-0.7) k/uL Basophils # 0.0 (0-0.2) k/uL PT 32.1 H (9.0-12.0) sec INR 3.3 H (<1.2) APTT 35.7 H (22.0-30.0) sec Sodium 139 (137-145) mmol/L Potassium 4.1 (3.5-5.1) mmol/L Chloride 103 (98-107) mmol/L Carbon Dioxide 25 (22-30) mmol/L Anion Gap 11 mmol/L BUN 48 H (9-20) mg/dL Creatinine 2.47 H (0.66-1.25) mg/dL Est GFR (CKD-EPI)AfAm 28 (>60 ml/min/1.73 sqM) Est GFR (CKD-EPI)NonAf 24 (>60 ml/min/1.73 sqM) Glucose 140 H (74-99) mg/dL Calcium 9.2 (8.4-10.2) mg/dL Disposition Clinical Impression: Leg pain Narrative: fluid collection of hip fluid collection of thigh anticoagulated on coumadin Disposition: ADMITTED IP TO THIS HOSP Is patient prescribed a controlled substance at d/c from ED?: No Referrals: Ginna Martin DO [Primary Care Provider] - 1-2 days Time of Disposition: 15:18
[2021-08-11] MEDS ORDERED: MORPHINE SULFATE 4 MG/ML SYRINGE IVP STA (12:33)
[2021-08-11 12:56] LABS: Basophils % (A) 0 %; Eosinophils # (A) 0.1 k/uL (0-0.7); Eosinophils % (A) 2 %; HCT 33.9 % (39.0-53.0); Lymphocytes # (A) 0.7 k/uL (1.0-4.8); Lymphocytes % (A) 8 %; MCH 30.7 pg (25.0-35.0); MCHC 32.5 g/dL (31.0-37.0); MCV 94.6 fL (80.0-100.0); Mean Platelet Volume 7.9; Monocytes # (A) 0.3 k/uL (0-1.0); Monocytes % (A) 3 %; Neutrophils # (A) 7.2 k/uL (1.3-7.7); Neutrophils % (A) 86 %; Platelet Count 265 k/uL (150-450); RBC 3.58 m/uL (4.30-5.90); RDW 14.4 % (11.5-15.5); WBC 8.4 k/uL (3.8-10.6)
--- NOTE | 2021-08-11 13:07 | XR ---
EXAMINATION TYPE: XR lumbar spine 2 or 3V DATE OF EXAM: 08/11/2021 Comparison: 12/18/2013 Clinical History: 76-year-old male lower back Findings: Partially visualized ICD lead. 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 Mild vertebral body height loss L3, L4, L5 is unchanged from 2014. Moderate endplate spondylosis throughout and mild multilevel disc space narrowing. Some bridging anterior end plate spondylosis L-2-L3 redemonstrated. Hypertrophic facet arthropathy throughout. Alignment is main tained. Impression: Mild vertebral body height loss of L3, L4, and L5 is chronic, unchanged from 2014. Moderate endplate spondylosis and hypertrophic facet arthropathy throughout. No new vertebral compression collapse or m alalignment.
[2021-08-11 13:13] LABS: Calcium 9.2 mg/dL (8.4-10.2); Potassium 4.1 mmol/L (3.5-5.1)
--- NOTE | 2021-08-11 13:14 | XR ---
EXAMINATION TYPE: XR femur LT DATE OF EXAM: 08/11/2021 COMPARISON: Correlation CT pelvis 06/24/2021 HISTORY: 76-year-old male with pain and swelling, bruising. TECHNIQUE: 2 views FINDINGS: There is generalized soft tissue swelling. Vascular calcifications. Moderate tricompartment al osteoarthritic change of the knee. Left hip total arthroplasty noted. There is focal soft tissue swelling filling the lateral aspect of the left hip. There may be some resorptive or erosive change of the previously displaced intertrochan teric fragment. Progressive calcification/ossification along the inferior aspect of the left hip. IMPRESSION: 1. No periprosthetic fracture or evident loosening. 2. However, there is a very large fluid collection/pseudotumor involving the lateral aspect of the le ft hip. On the patient's CT of 06/24/2021, this measured up to 28.7 cm. Correlate for any known diagn osis and recommend orthopedic follow up.
[2021-08-11 13:16] LABS: INR 3.3 (<1.2); Partial Thromboplastin Time 35.7 sec (22.0-30.0); Prothrombin Time 32.1 sec (9.0-12.0)
--- NOTE | 2021-08-11 13:59 | US ---
EXAMINATION TYPE: US venous doppler duplex LE LT DATE OF EXAM: 08/11/2021 1:46 PM COMPARISON: NONE CLINICAL HISTORY: 76-year-old male pain, swelling. SIDE PERFORMED: Left TECHNIQUE: The lower extremity deep venous system is examined utilizing real time linear array sonog kisha with graded compression, doppler sonography and color-flow sonography. FINDINGS: VESSELS IMAGED: Common Femoral Vein Deep Femoral Vein Greater Saphenous Vein * Femoral Vein Popliteal Vein Small Saphenous Vein * Proximal Calf Veins (* superficial vessels) Left Leg: Appears negative for DVT. There is a large fluid collection starting in left groin and extending all the way down to patients k nee. IMPRESSION: 1. No evidence for DVT within the left lower extremity imaged from the groin to the upper calf. 2. Very large fluid collection extending from the left groin/hip down to the patient's knee. Refer to the patient's recent CT pelvis of 06/24/2021. Recommend orthopedic follow-up to determine etiology. Some considerations include a large liquefied hematoma, seroma, or pseudotumor related to the patient 's hip replacement.
[2021-08-11] MEDS ORDERED: ONDANSETRON 4 MG/2 ML VIAL IVP PRN (15:10)
[2021-08-11] MEDS ORDERED: MORPHINE SULFATE 4 MG/ML SYRINGE IV PRN (15:10)
[2021-08-11] MEDS ORDERED: NALOXONE 0.4 MG/ML 1 ML VIAL IV PRN (15:10)
[2021-08-11] MEDS: SODIUM CHLORIDE 0.9% 1,000 ML IV SCH (15:45)
[2021-08-11] MEDS: INSULIN ASPART (NovoLOG) 100 UNIT/ML VIAL SQ SCH ×2 (19:09→21:20)
--- NOTE | 2021-08-11 20:01 | CT ---
EXAMINATION TYPE: CT lower extremity LT wo con CT DLP: 2283 mGycm, Automated exposure control for dose reduction was used. DATE OF EXAM: 08/11/2021 7:19 PM COMPARISON: None CLINICAL INDICATION:Male, 76 years old with history of pain; TECHNIQUE: Axial images were obtained of the left lower extremity without the use of IV contrast. Ad ditional coronal and sagittal reformatted images and soft tissue and bone window were obtained for re view. 3-D reconstruction was created on a separate workstation. FINDINGS: Left hip total arthroplasty changes which limits evaluation slightly. Hardware appears inta ct. No periprosthetic lucency identified. There is some heterotropic calcification seen around the le ft hip likely from prior surgical intervention. There is a large fluid collection within the lateral aspect of the hip measuring at least 21 cm x 17 cm extends into the posterior and anterior thigh comp artments. There is no evidence of fracture. Sclerotic changes of the arterial vasculature. Visualized portions of the pelvis demonstrate no acute abnormality. Left fat filled inguinal hernia. IMPRESSION: 1. No evidence for acute fracture. 2. Left hip arthroplasty changes with large fluid collection in the lateral thigh likely represent ab scess versus seroma/hematoma. This measures at least 21 cm length by 17 cm in thickness and extends d own the thigh anterior and posterior compartments. Clinical correlation and tissue sampling is recomm ended.
--- NOTE | 2021-08-11 20:04 | CT ---
EXAMINATION TYPE: CT pelvis wo con CT DLP: 2283 mGycm, Automated exposure control for dose reduction was used. DATE OF EXAM: 08/11/2021 7:19 PM COMPARISON: Left lower extremity CT same day. CLINICAL INDICATION:Male, 76 years old with history of pain; TECHNIQUE: Standard CT of the pelvis without IV or oral contrast. Lack of IV or oral contrast limit s evaluation of solid and hollow organ viscera. Coronal and sagittal reformats were performed. FINDINGS: PELVIS Limited evaluation secondary to streak artifact from arthroplasty changes. BLADDER: Unremarkable REPRODUCTIVE: Unremarkable. ABDOMEN & PELVIS STOMACH AND BOWEL: No evidence of bowel obstruction. PERITONEUM: No evidence of pneumoperitoneum or free fluid. VASCULATURE: Moderate atherosclerotic calcifications are present throughout the abdominal aorta and i ts branches. MUSCULOSKELETAL: No acute osseous abnormalities bilateral hip arthroplasty changes. Left hip total a rthroplasty changes which limits evaluation slightly. Hardware appears intact. No periprosthetic luce ncy identified. There is some heterotropic calcification seen around the left hip likely from prior s urgical intervention. There is a large fluid collection within the lateral aspect of the hip measurin g at least 21 cm x 17 cm extends into the posterior and anterior thigh compartments. There is no evid ence of fracture. The level degenerative changes of the spine are present. LYMPH NODES: No gross evidence for lymphadenopathy. SOFT TISSUE/ABDOMINAL WALL: Left fat filled inguinal hernia. Centimeter fat filled umbilical hernia. IMPRESSION: 1. No evidence of intrapelvic process. 2. Left hip arthroplasty changes with large fluid collection in the lateral thigh likely represent ab scess versus seroma/hematoma. This measures at least 21 cm length by 17 cm in thickness and extends d own the thigh anterior and posterior compartments. Clinical correlation and tissue sampling is recomm ended. 3. Moderate multilevel degenerative disc disease changes of the spine
[2021-08-11] MEDS ORDERED: NON FORMULARY DRUG (Omega-3 Fatty Acids/Fish Oil [Fish Oil 1,000 Mg Softgel] 1 EACH Capsul PO SCH (21:00)
[2021-08-11] MEDS: LOSARTAN 50 MG TAB PO SCH (21:20)
[2021-08-11] MEDS: ATORVASTATIN 20 MG TAB PO SCH (21:20)
[2021-08-11] MEDS: SERTRALINE 50 MG TAB PO SCH (21:20)
[2021-08-11] MEDS: cloNIDine HCL 0.1 MG TAB PO SCH (21:20)
[2021-08-11 23:05] LABS: Glucose,Whole Blood 157 mg/dL (75-99)
[2021-08-12 07:11] LABS: Glucose,Whole Blood 129 mg/dL (75-99)
[2021-08-12] MEDS: SODIUM CHLORIDE 0.9% 1,000 ML IV SCH (07:15)
[2021-08-12] MEDS: INSULIN ASPART (NovoLOG) 100 UNIT/ML VIAL SQ SCH ×4 (07:15→22:28)
[2021-08-12] MEDS: cloNIDine HCL 0.1 MG TAB PO SCH ×2 (07:30→22:28)
[2021-08-12] MEDS: SERTRALINE 50 MG TAB PO SCH ×2 (07:30→22:28)
[2021-08-12] MEDS: POTASSIUM CHLORIDE ER 10 MEQ TAB.ER.PRT PO SCH (07:30)
[2021-08-12] MEDS: CHOLECALCIFEROL 25 MCG (1000 IU) TABLET PO SCH (07:30)
[2021-08-12] MEDS: FENOFIBRATE 160 MG TAB PO SCH (07:30)
[2021-08-12] MEDS: CYANOCOBALAMIN 500 MCG TAB PO SCH (07:30)
[2021-08-12] MEDS: amLODIPine 10 MG TAB PO SCH (07:30)
[2021-08-12] MEDS: PYRIDOXINE 50 MG TAB PO SCH (07:31)
[2021-08-12] MEDS: ASPIRIN 81 MG PO SCH (07:31)
[2021-08-12] MEDS: FUROSEMIDE 80 MG TAB PO SCH (07:31)
[2021-08-12] MEDS: FERROUS SULFATE 325 MG TAB PO SCH (07:31)
[2021-08-12] MEDS: METOPROLOL SUCCINATE (ER) 50 MG TAB.ER.24H PO SCH (07:31)
[2021-08-12] MEDS ORDERED: NON FORMULARY DRUG (Omega-3 Fatty Acids/Fish Oil [Fish Oil 1,000 Mg Softgel] 1 EACH Capsul PO SCH (09:00)
[2021-08-12 11:26] LABS: Glucose,Whole Blood 134 mg/dL (75-99)
[2021-08-12] MEDS ORDERED: HYDROcodone/APAP 5-325MG 1 EACH TAB PO PRN (13:03)
--- NOTE | 2021-08-12 13:03 | P.CNOR ---
History of Present Illness - [facility] Consult date: 08/12/21 Consult reason: joint pain History of present illness: Patient is a pleasant 76-year-old male seen at bedside this afternoon consultation for left hip/thigh pain and known fluid collection. He is status post left total hip arthroplasty done approximately 16 years ago in [place]. The surgeon is unknown. He states he's had intermittent left hip and thigh pain for the past year or so. He had an MRI done of the left hip and pelvis in August 2020 which showed a fluid collection with no definite evidence of infection. Studies showed no acute abnormality with the prosthesis. He feels it has worsened recently the past few weeks without trauma or injury. He denies fever or chills. He has no groin pain. He has no new radicular symptoms. He denies calf pain, chest pain, shortness of breath or other. Review of Systems All systems: negative Constitutional: Denies chills, Denies fever Eyes: denies blurred vision, denies pain Ears, nose, mouth and throat: Denies headache, Denies sore throat Cardiovascular: Denies chest pain, Denies shortness of breath Respiratory: Denies cough Gastrointestinal: Denies abdominal pain, Denies diarrhea, Denies nausea, Denies vomiting Musculoskeletal: Denies myalgias Integumentary: Denies pruritus, Denies rash Neurological: Denies numbness, Denies weakness Psychiatric: Denies anxiety, Denies depression Endocrine: Denies fatigue, Denies weight change Past Medical History Past Medical History: Atrial Fibrillation, Cancer, Dementia, Diabetes Mellitus, Hyperlipidemia, Hypertension, Osteoarthritis (OA), Prostate Disorder, Renal Disease Additional Past Medical History / Comment(s): enlarged heart, 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 Decker. 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 Past Drug Use History: None Reported - Past Family History Mother Family Medical History: Cancer Additional Family Medical History / Comment(s): stomach cancer Medications and Allergies Home Medications Medication Instructions Recorded Confirmed Type Aspirin [Adult Low Dose Aspirin EC] 81 mg PO DAILY 01/06/17 08/11/21 History Fenofibrate 160 mg PO DAILY 01/06/17 08/11/21 History [place]-3 Fatty Acids/Fish Oil [Fish 1 cap PO HS 01/06/17 08/11/21 History Oil 1,000 mg Softgel] [place]-3 Fatty Acids/Fish Oil [Fish 2 cap PO DAILY 01/06/17 08/11/21 History Oil 1,000 mg Softgel] Simvastatin [Zocor] 40 mg PO HS 01/06/17 08/11/21 History Cyanocobalamin (Vitamin B-12) 1,000 mcg PO DAILY 12/01/18 08/11/21 History [Vitamin B-12] Irbesartan 300 mg PO HS 12/01/18 08/11/21 History Pyridoxine HCl (Vitamin B6) 100 mg PO DAILY 01/09/21 08/11/21 History [Vitamin B-6] Ferrous Sulfate [Iron (65 MG 325 mg PO DAILY 04/23/21 08/11/21 History Elemental)] Cholecalciferol [Vitamin D3 (25 50 mcg PO DAILY 05/22/21 08/11/21 History Mcg = 1000 Iu)] Furosemide [Lasix] 80 mg PO DAILY 08/11/21 08/11/21 History Insulin Glargine,Hum.rec.anlog 34 units SQ HS 08/11/21 08/11/21 History [Touvi Solostar] Metoprolol Succinate [Toprol XL] 50 mg PO DAILY 08/11/21 08/11/21 History Potassium Chloride [Klor-Con 10 ER] 10 meq PO DAILY 08/11/21 08/11/21 History Sertraline [Zoloft] 50 mg PO BID 08/11/21 08/11/21 History Warfarin [Coumadin] 2.5 mg PO SUTUTHFRSA@0900 08/11/21 08/11/21 History Warfarin [Coumadin] 5 mg PO MOWE@0900 08/11/21 08/11/21 History amLODIPine [Norvasc] 10 mg PO DAILY 08/11/21 08/11/21 History cloNIDine HCL [Catapres] 0.3 mg PO BID 08/11/21 08/11/21 History metFORMIN HCL ER [Glucophage XR] 1,000 mg PO BID 08/11/21 08/11/21 History Allergies Allergy/AdvReac Type Severity Reaction Status Date / Time bee venom protein (honey bee) Allergy Unknown PASSED OUT Verified 08/11/21 11:45 X2 Physical Examination Inspection of the left hip, thigh and lower extremity shows no deformity. There is no erythema or ecchymoses. There are no wounds. There is mild tenderness at the anterior proximal thigh. There is some appreciation of fluid collection at the proximal anterior thigh. It is not hot to touch. There is no fluctuance. The hip and groin has painless range of motion with internal and external rotation as well as hip flexion. There is no effusion at the knee. It is nontender. He has painless active range of motion at the knee, ankle and foot. Calf is soft and nontender. Motor and sensation is grossly intact throughout the left lower extremity. 2+ dorsalis pedis pulse and less than 2 second capillary refill is present. Results MRI of the left hip and pelvis from August [address] of the left hip and pelvis were reviewed. They both show continued fluid collection which may be seroma versus hematoma versus abscess. The prosthesis appears intact with no evidence of fracture or lucency. - Labs Labs: Abnormal Lab Results - Last 24 Hours (Table) 08/11/21 08/11/21 08/11/21 Range/Units 12:44 12:44 12:44 RBC 3.58 L (4.30-5.90) m/uL Hgb 11.0 L (13.0-17.5) gm/dL Hct 33.9 L (39.0-53.0) % Lymphocytes # 0.7 L (1.0-4.8) k/uL PT 32.1 H (9.0-12.0) sec INR 3.3 H (<1.2) APTT 35.7 H (22.0-30.0) sec BUN 48 H (9-20) mg/dL Creatinine 2.47 H (0.66-1.25) mg/dL Glucose 140 H (74-99) mg/dL POC Glucose (mg/dL) (75-99) mg/dL C-Reactive Protein (<1.0) mg/dL 08/11/21 08/12/21 08/12/21 Range/Units 23:04 07:07 11:12 RBC (4.30-5.90) m/uL Hgb (13.0-17.5) gm/dL Hct (39.0-53.0) % Lymphocytes # (1.0-4.8) k/uL PT (9.0-12.0) sec INR (<1.2) APTT (22.0-30.0) sec BUN (9-20) mg/dL Creatinine (0.66-1.25) mg/dL Glucose (74-99) mg/dL POC Glucose (mg/dL) 157 H 129 H (75-99) mg/dL C-Reactive Protein 6.6 H (<1.0) mg/dL 08/12/21 Range/Units 11:25 RBC (4.30-5.90) m/uL Hgb (13.0-17.5) gm/dL Hct (39.0-53.0) % Lymphocytes # (1.0-4.8) k/uL PT (9.0-12.0) sec INR (<1.2) APTT (22.0-30.0) sec BUN (9-20) mg/dL Creatinine (0.66-1.25) mg/dL Glucose (74-99) mg/dL POC Glucose (mg/dL) 134 H (75-99) mg/dL C-Reactive Protein (<1.0) mg/dL H & H 08/11/21 Range/Units 12:44 Hgb 11.0 L (13.0-17.5) gm/dL Hct 33.9 L (39.0-53.0) % Coagulation 08/11/21 Range/Units 12:44 INR 3.3 H (<1.2) Result Diagrams: 08/11/21 12:44 08/11/21 12:44 - Diagnostic results Hip MRI: report reviewed, image reviewed Hip CT: report reviewed, image reviewed Assessment and Plan (1) Leg pain Narrative/Plan: Patient has been reviewed with Dr. Alberts. There are no plans for immediate surgical intervention. He has known evidence of fluid collection at the left hip and thigh for the past 12 months. There is no evidence of acute infection thus far as he is afebrile, has a normal white blood cell count, and clinical exam does not indicate acute infection. I've ordered labs including CRP, sedimentation rate, and lactic acid. We'll continue to monitor and make further recommendations as appropriate. He'll likely need to follow-up as an outpatient with Dr. Lon Hancock or Dr. Tunde Rabago regarding possible revision of left total hip arthroplasty. Recommend continued pain management, DVT prophylaxis, medical management and physical therapy in the interim. Current Visit: Yes Status: Acute Priority: Medium Code(s): M79.606 - PAIN IN LEG, UNSPECIFIED SNOMED Code(s): 06073554 (2) S/P total left hip arthroplasty Current Visit: Yes Status: Acute Priority: Medium Code(s): Z96.642 - PRESENCE OF LEFT ARTIFICIAL HIP JOINT SNOMED Code(s): 750900339028 Time with Patient: Less than 30
[2021-08-12] MEDS: HYDROcodone/APAP 5-325MG 1 EACH TAB PO PRN ×2 (13:25→19:47)
[2021-08-12 17:12] LABS: Glucose,Whole Blood 170 mg/dL (75-99)
--- NOTE | 2021-08-12 19:17 | P.HPIM ---
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 His PCP is Dr. Carter who went into his office yesterday at his insistence give him a pain shot in his left but to help him with pain and walking but I did not do much for him still painful for him to walk, also he is been delivered more by stiffness in his joints if he sits for long time. His left-sided pain is mainly on the medial and lateral side and he rated as 5/10. He denies weakness in his leg, no numbness or loss of sensation. No trauma or fall or bruits. Both legs are swollen but mainly on the left side. During examination of patient was able to stand up by himself holding his walker in front of him and took his parents off by himself with no difficulties except for most lower distal part he needed help with as it is out of his reach. Patient also has memory issues and he could not remember all the details. However he denies chest pain or dyspnea or coughing. No GI symptoms. No specific urinary symptoms, he looks alert and to surrounding and not necessarily confused. Although he has dementia. He couldn't remember some details for example he has pacemaker in his heart but he could not tell why he is in coumadine. Vitals are stable except for mild bradycardia around 55 CBC is unremarkable except for mild anemia at 11.0. An you for pain is 0.7. INR is elevated 3.3 Glucose controlled. Creatinine elevated at 2.4 which is baseline, GFR is 24 for him Latricia risks of BMP is unremarkable. CRP is elevated at 6.6 and ESR 39, perdue virus not detected Pelvic CT: Bilateral hip arthroplasty changes hardware appears intact. There is a large fluid collection within the lateral aspect of the hip measuring at least 21 cm x 17 cm extending into posterior and anterior thigh compartments. There is no evidence of fracture. The level degenerative changes of the spine are present. No evidence of intrapelvic process. Left lower extremity that scan without contrast: No evidence of acute fracture. Left hip arthroplasty changes with large fluid collection measures at least one centimeter by 17 cm Lumbar spine x-ray showing mild vertebral body height loss of L3, L4 and L5 is chronic and unchanged from 2014. No new vertebral compression collapse or malalignment In the emergency room patient received more same treatment only and admitted with orthopedic team consultation, as per the recommendation he has a known evidence of fluid collection of the left hip and thigh for the past 12 months. There is no evidence of infection and they recommended outpatient follow-up with Dr. Lon Hancock or Dr. Tunde Rabago regarding possible revision of left total hip arthroplasty. Review of Systems Review of systems CONSTITUTIONAL: No fever, no malaise, no fatigue. HEENT: No recent visual problems or hearing problems. Denied any sore throat. CARDIOVASCULAR: No orthopnea, PND, no palpitations, no syncope. PULMONARY: No shortness of breath, no cough, no hemoptysis. GASTROINTESTINAL: No diarrhea, no nausea, no vomiting, no abdominal pain. Normoactive bowel sounds. NEUROLOGICAL: No headaches, no weakness, no numbness. HEMATOLOGICAL: Denies any bleeding or petechiae. GENITOURINARY: Denies any burning micturition, frequency, or urgency. MUSCULOSKELETAL/RHEUMATOLOGICAL: Denies any joint pain, joint deformity ENDOCRINE: Denies any polyuria or polydipsia. 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 Decker. History of Any Multi-Drug Resistant Organisms: MRSA Date of last positivie culture/infection: over 10 yrs (2008?) MDRO Source:: Leg Past Surgical History: Appendectomy, Joint Replacement, Orthopedic Surgery Additional Past Surgical History / Comment(s): left shoulder surgery, surgery rt eye from metal in eye, left carpal tunnel, shabana hip replacements Past Anesthesia/Blood Transfusion Reactions: No Reported Reaction Past Psychological History: No Psychological Hx Reported Smoking Status: Former smoker Past Alcohol Use History: None Reported Additional Past Alcohol Use History / Comment(s): quit smoking may 2018, smoked 5-6 years. Past Drug Use History: None Reported - Past Family History Mother Family Medical History: Cancer Additional Family Medical History / Comment(s): stomach cancer Medications and Allergies Home Medications Medication Instructions Recorded Confirmed Type Aspirin [Adult Low Dose Aspirin EC] 81 mg PO DAILY 01/06/17 08/11/21 History Fenofibrate 160 mg PO DAILY 01/06/17 08/11/21 History [place]-3 Fatty Acids/Fish Oil [Fish 1 cap PO HS 01/06/17 08/11/21 History Oil 1,000 mg Softgel] [place] Fatty Acids/Fish Oil [Fish 2 cap PO DAILY 01/06/17 08/11/21 History Oil 1,000 mg Softgel] Simvastatin [Zocor] 40 mg PO HS 01/06/17 08/11/21 History Cyanocobalamin (Vitamin B-12) 1,000 mcg PO DAILY 12/01/18 08/11/21 History [Vitamin B-12] Irbesartan 300 mg PO HS 12/01/18 08/11/21 History Pyridoxine HCl (Vitamin B6) 100 mg PO DAILY 01/09/21 08/11/21 History [Vitamin B-6] Ferrous Sulfate [Iron (65 MG 325 mg PO DAILY 04/23/21 08/11/21 History Elemental)] Cholecalciferol [Vitamin D3 (25 50 mcg PO DAILY 05/22/21 08/11/21 History Mcg = 1000 Iu)] Furosemide [Lasix] 80 mg PO DAILY 08/11/21 08/11/21 History Insulin Glargine,Hum.rec.anlog 34 units SQ HS 08/11/21 08/11/21 History [Touvi Solostar] Metoprolol Succinate [Toprol XL] 50 mg PO DAILY 08/11/21 08/11/21 History Potassium Chloride [Klor-Con 10 ER] 10 meq PO DAILY 08/11/21 08/11/21 History Sertraline [Zoloft] 50 mg PO BID 08/11/21 08/11/21 History Warfarin [Coumadin] 2.5 mg PO SUTUTHFRSA@0900 08/11/21 08/11/21 History Warfarin [Coumadin] 5 mg PO MOWE@0900 08/11/21 08/11/21 History amLODIPine [Norvasc] 10 mg PO DAILY 08/11/21 08/11/21 History cloNIDine HCL [Catapres] 0.3 mg PO BID 08/11/21 08/11/21 History metFORMIN HCL ER [Glucophage XR] 1,000 mg PO BID 08/11/21 08/11/21 History Allergies Allergy/AdvReac Type Severity Reaction Status Date / Time bee venom protein (honey bee) Allergy Unknown PASSED OUT Verified 08/11/21 11:45 X2 Physical Exam Vitals: Vital Signs Temp Pulse Pulse Resp BP BP Pulse Ox 08/12/21 06:45 98.4 F 55 L 17 108/65 97 08/12/21 01:45 97.9 F 52 L 15 119/70 97 08/11/21 21:47 98.4 F 55 L 16 130/81 97 08/11/21 21:20 17 08/11/21 19:34 55 L 16 125/68 98 Intake and Output 08/11/21 08/12/21 08/12/21 22:59 06:59 14:59 Other: Voiding Method Toilet # Voids 2 2 Weight 104.78 kg GENERAL: The patient is alert and oriented x3, not in any acute distress. Obese HEENT: Pupils are round and equally reacting to light. EOMI. No scleral icterus. No conjunctival pallor. Normocephalic, atraumatic. No pharyngeal erythema. No thyromegaly. CARDIOVASCULAR: S1 and S2 present. No murmurs, rubs, or gallops. PULMONARY: Chest is clear to auscultation, no wheezing or crackles. ABDOMEN: Soft, nontender, nondistended, normoactive bowel sounds. No palpable organomegaly. MUSCULOSKELETAL: No joint swelling or deformity. -EXTREMITIES: No cyanosis, clubbing, bilateral pitting leg edema, more on the left side the right side. Left thigh slightly more swelling than with very mild tenderness on the medial and lateral side, no erythema or focal swelling, deformity or wound, skin looks normal NEUROLOGICAL: Gross neurological examination did not reveal any focal deficits. SKIN: No rashes. no petechiae. Results CBC & Chem 7: 08/11/21 12:44 08/11/21 12:44 Labs: Abnormal Lab Results - Last 24 Hours (Table) 08/11/21 08/12/21 08/12/21 Range/Units 23:04 07:07 11:12 ESR 39 H (0-15) mm/hr POC Glucose (mg/dL) 157 H 129 H (75-99) mg/dL C-Reactive Protein (<1.0) mg/dL 08/12/21 08/12/21 Range/Units 11:12 11:25 ESR (0-15) mm/hr POC Glucose (mg/dL) 134 H (75-99) mg/dL C-Reactive Protein 6.6 H (<1.0) mg/dL Thrombosis Risk Factor Assmnt - Choose All That Apply Each Risk Factor Represents 2 Points: Malignancy Each Risk Factor Represents 3 Points: Age 75 years or older Thrombosis Risk Factor Assessment Total Risk Factor Score: 5 Thrombosis Risk Factor Assessment Level: High Risk Assessment and Plan Assessment: - Subacute left thigh and hip pain mostly secondary to a large fluid collection within the lateral aspect of the hip measuring at least 21 cm x 17 cm extending into posterior and anterior thigh compartments. 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 Fiore Hold Coumadin and check INR tomorrow Give one-time dose of Lasix Dr. Decker consult for stage IV kidney disease as he is known to our service Labs and medication were reviewed.. Continue same treatment. Continue with symptomatic treatment. Resume home medication. Monitor lytes and vitals. DVT and GI prophylaxis. Further recommendations as per clinical course of the patient DVT prophylaxis: On Coumadin GI Prophylaxis: Pepcid PT/OT: Pending
[2021-08-12] MEDS: FUROSEMIDE 10 MG/ML 4 ML VIAL IV SCH (19:47)
[2021-08-12] MEDS: FAMOTIDINE 20 MG TAB PO SCH (19:47)
[2021-08-12 21:10] LABS: Glucose,Whole Blood 109 mg/dL (75-99)
[2021-08-12] MEDS: LOSARTAN 50 MG TAB PO SCH (22:28)
[2021-08-12] MEDS: ATORVASTATIN 20 MG TAB PO SCH (22:28)
[2021-08-13] MEDS: HYDROcodone/APAP 5-325MG 1 EACH TAB PO PRN ×3 (05:28→17:18)
[2021-08-13 07:04] LABS: Glucose,Whole Blood 141 mg/dL (75-99)
[2021-08-13] MEDS: ASPIRIN 81 MG PO SCH (08:49)
[2021-08-13] MEDS: FERROUS SULFATE 325 MG TAB PO SCH (08:49)
[2021-08-13] MEDS: POTASSIUM CHLORIDE ER 10 MEQ TAB.ER.PRT PO SCH (08:49)
[2021-08-13] MEDS: CHOLECALCIFEROL 25 MCG (1000 IU) TABLET PO SCH (08:49)
[2021-08-13] MEDS: FAMOTIDINE 20 MG TAB PO SCH (08:49)
[2021-08-13] MEDS: SERTRALINE 50 MG TAB PO SCH ×2 (08:49→20:38)
[2021-08-13] MEDS: FENOFIBRATE 160 MG TAB PO SCH (08:49)
[2021-08-13] MEDS: CYANOCOBALAMIN 500 MCG TAB PO SCH (08:49)
[2021-08-13] MEDS: METOPROLOL SUCCINATE (ER) 50 MG TAB.ER.24H PO SCH (08:49)
[2021-08-13] MEDS: cloNIDine HCL 0.1 MG TAB PO SCH ×2 (08:50→20:37)
[2021-08-13] MEDS: INSULIN ASPART (NovoLOG) 100 UNIT/ML VIAL SQ SCH ×4 (08:50→20:38)
[2021-08-13] MEDS: amLODIPine 10 MG TAB PO SCH (08:50)
[2021-08-13] MEDS: PYRIDOXINE 50 MG TAB PO SCH (08:54)
[2021-08-13] MEDS: FUROSEMIDE 80 MG TAB PO SCH (08:54)
[2021-08-13] MEDS: FUROSEMIDE 10 MG/ML 4 ML VIAL IV SCH (08:54)
[2021-08-13 09:03] LABS: Basophils # (A) 0.03 X 10*3/uL (0.00-0.10); Basophils % (A) 0.5 %; Eosinophils # (A) 0.21 X 10*3/uL (0.04-0.35); Eosinophils % (A) 3.2 %; HCT 29.9 % (39.6-50.0); HGB 9.2 g/dL (13.0-17.0); Lymphocytes # (A) 0.78 X 10*3/uL (0.90-5.00); Lymphocytes % (A) 11.9 %; MCH 29.3 pg (27.0-32.0); MCHC 30.8 g/dL (32.0-37.0); MCV 95.2 fL (80.0-97.0); Mean Platelet Volume 10.8 fL (9.5-12.2); Monocytes # (A) 0.42 X 10*3/uL (0.20-1.00); Monocytes % (A) 6.4 %; Neutrophils # (A) 5.09 X 10*3/uL (1.80-7.70); Neutrophils % (A) 77.7 %; Platelet Count 250 X 10*3/uL (140-440); RBC 3.14 X 10*6/uL (4.40-5.60); RDW 14.6 % (11.5-14.5); WBC 6.55 X 10*3/uL (4.50-10.00)
[2021-08-13 09:12] LABS: INR 2.32 (0.90-1.11); Prothrombin Time 24.5 sec (9.9-11.9)
[2021-08-13 11:27] LABS: Glucose,Whole Blood 148 mg/dL (75-99)
--- NOTE | 2021-08-13 12:19 | P.PN ---
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 His PCP is Dr. Carter who went into his office yesterday at his insistence give him a pain shot in his left but to help him with pain and walking but I did not do much for him still painful for him to walk, also he is been delivered more by stiffness in his joints if he sits for long time. His left-sided pain is mainly on the medial and lateral side and he rated as 5/10. He denies weakness in his leg, no numbness or loss of sensation. No trauma or fall or bruits. Both legs are swollen but mainly on the left side. During examination of patient was able to stand up by himself holding his walker in front of him and took his parents off by himself with no difficulties except for most lower distal part he needed help with as it is out of his reach. Patient also has memory issues and he could not remember all the details. However he denies chest pain or dyspnea or coughing. No GI symptoms. No specific urinary symptoms, he looks alert and to surrounding and not necessarily confused. Although he has dementia. He couldn't remember some details for example he has pacemaker in his heart but he could not tell why he is in co umadine. Vitals are stable except for mild bradycardia around 55 CBC is unremarkable except for mild anemia at 11.0. An you for pain is 0.7. INR is elevated 3.3 Glucose controlled. Creatinine elevated at 2.4 which is baseline, GFR is 24 for him Latricia risks of BMP is unremarkable. CRP is elevated at 6.6 and ESR 39, perdue virus not detected Pelvic CT: Bilateral hip arthroplasty changes hardware appears intact. There is a large fluid collection within the lateral aspect of the hip measuring at least 21 cm x 17 cm extending into posterior and anterior thigh compartments. There is no evidence of fracture. The level degenerative changes of the spine are present. No evidence of intrapelvic process. Left lower extremity that scan without contrast: No evidence of acute fracture. Left hip arthroplasty changes with large fluid collection measures at least one centimeter by 17 cm Lumbar spine x-ray showing mild vertebral body height loss of L3, L4 and L5 is chronic and unchanged from 2014. No new vertebral compression collapse or malalignment In the emergency room patient received more same treatment only and admitted with orthopedic team consultation, as per the recommendation he has a known evidence of fluid collection of the left hip and thigh for the past 12 months. There is no evidence of infection and they recommended outpatient follow-up with Dr. Lon Hancock or Dr. Tunde Rabago regarding possible revision of left total hip arthroplasty. 08/13/2021 Patient states that his pain in his left thigh is improving, orthopedic team the don't recommend inpatient surgical intervention stating that this is a chronic problem and recommended outpatient follow-up for possible revision Also patient is on Coumadin for his A. fib, he was coagulopathic on admission with INR 3.3, today his INR improved down to 2.3 however his hemoglobin dropped 11 down to 9 could be elements of hemoglobin delusion however given his critical apparently was going to do anemia workup including occult blood in the stool as well as blood test. Change Pepcid to Protonix And monitor hemoglobin and INR tomorrow. Also repeat creatinine today as he is on IV Lasix for his bilateral leg swelling area he is a known chronic kidney disease stage IV and he follows with Dr. Decker was consulted as well. Physical therapy recommended home health care Objective - Vital Signs Vital signs: Vital Signs Temp 97.3 F L 08/13/21 07:00 Pulse 55 L 08/13/21 07:00 Resp 17 08/13/21 07:00 BP 115/65 08/13/21 07:00 Pulse Ox 97 08/13/21 07:00 Intake & Output 08/12/21 08/13/21 08/13/21 18:59 06:59 18:59 Other: # Voids 2 3 - Exam GENERAL: The patient is alert and oriented x3, not in any acute distress. Obese HEENT: Pupils are round and equally reacting to light. EOMI. No scleral icterus. No conjunctival pallor. Normocephalic, atraumatic. No pharyngeal erythema. No thyromegaly. CARDIOVASCULAR: S1 and S2 present. No murmurs, rubs, or gallops. PULMONARY: Chest is clear to auscultation, no wheezing or crackles. ABDOMEN: Soft, nontender, nondistended, normoactive bowel sounds. No palpable organomegaly. MUSCULOSKELETAL: No joint swelling or deformity. -EXTREMITIES: No cyanosis, clubbing, bilateral pitting leg edema, more on the left side the right side. Left thigh slightly more swelling than with very mild tenderness on the medial and lateral side, no erythema or focal swelling, deformity or wound, skin looks normal NEUROLOGICAL: Gross neurological examination did not reveal any focal deficits. SKIN: No rashes. no petechiae. - Labs CBC & Chem 7: 08/13/21 05:30 08/11/21 12:44 Labs: Abnormal Lab Results - Last 24 Hours (Table) 08/12/21 08/12/21 08/12/21 Range/Units 11:12 17:11 21:08 RBC (4.40-5.60) X 10*6/uL Hgb (13.0-17.0) g/dL Hct (39.6-50.0) % MCHC (32.0-37.0) g/dL RDW (11.5-14.5) % Lymphocytes # (0.90-5.00) X 10*3/uL ESR 39 H (0-15) mm/hr PT (9.9-11.9) sec INR (0.90-1.11) POC Glucose (mg/dL) 170 H 109 H (75-99) mg/dL 08/13/21 08/13/21 08/13/21 Range/Units 05:30 05:30 07:02 RBC 3.14 L (4.40-5.60) X 10*6/uL Hgb 9.2 L (13.0-17.0) g/dL Hct 29.9 L (39.6-50.0) % MCHC 30.8 L (32.0-37.0) g/dL RDW 14.6 H (11.5-14.5) % Lymphocytes # 0.78 L (0.90-5.00) X 10*3/uL ESR (0-15) mm/hr PT 24.5 H (9.9-11.9) sec INR 2.32 H (0.90-1.11) POC Glucose (mg/dL) 141 H (75-99) mg/dL 12/16/21 Range/Units 11:25 RBC (4.40-5.60) X 10*6/uL Hgb (13.0-17.0) g/dL Hct (39.6-50.0) % MCHC (32.0-37.0) g/dL RDW (11.5-14.5) % Lymphocytes # (0.90-5.00) X 10*3/uL ESR (0-15) mm/hr PT (9.9-11.9) sec INR (0.90-1.11) POC Glucose (mg/dL) 148 H (75-99) mg/dL Assessment and Plan Assessment: - Subacute left thigh and hip pain mostly secondary to a large fluid collection within the lateral aspect of the hip measuring at least 21 cm x 17 cm extending into posterior and anterior thigh compartments. Orthopedic team evaluated the patient and recommended no surgical intervention but follow-up as an outpatient - new drop of hemoglobin, pending anemia workup - Coagulopathy secondary to supratherapeutic INR from Coumadin, improved and INR back to therapeutic level - Chronic atrial fibrillation on Coumadin, status post pacemaker - History of dementia - Diabetes mellitus - Hyperlipidemia - Hypertension - History of osteoarthritis - History of prostatic cancer status post radiotherapy around 10 years ago - Chronic kidney disease stage IV: - Poor vision of the right eye from injury -Obesity with BMI of 32.2 Plan: This is a pleasant 76 race old male who presents with subacute left hip pain and thigh secondary to chronic fluid collection Patient evaluated by orthopedic team and recommended no surgical intervention but follow-up as an outpatient for possible revision of his left hip arthroplasty after [facility] or Dr. Fiore On Coumadin and check INR tomorrow Withdrawal anemia workup Continue with IV Lasix and monitor creatinine Dr. Decker consult for stage IV kidney disease as he is known to our service Labs and medication were reviewed.. Continue same treatment. Continue with symptomatic treatment. Resume home medication. Monitor lytes and vitals. DVT and GI prophylaxis. Further recommendations as per clinical course of the patient DVT prophylaxis: On Coumadin GI Prophylaxis: Ppi PT/OT: Home health care Prognosis guarded
[2021-08-13] MEDS: PANTOPRAZOLE 40 MG/10 ML VIAL IVP SCH (12:29)
[2021-08-13 12:56] LABS: HCT 31.4 % (39.0-53.0); HGB 9.9 gm/dL (13.0-17.5); Hypochromasia Slight; MCH 30.4 pg (25.0-35.0); MCHC 31.4 g/dL (31.0-37.0); MCV 96.9 fL (80.0-100.0); Mean Platelet Volume 8.5; Platelet Count 260 k/uL (150-450); RBC 3.24 m/uL (4.30-5.90); RDW 14.4 % (11.5-15.5); WBC 6.7 k/uL (3.8-10.6)
[2021-08-13 13:20] LABS: African American GFR (CKD) 31 (>60 ml/min/1.73 sqM); Anion Gap 7 mmol/L; Blood Urea Nitrogen 54 mg/dL (9-20); Carbon Dioxide 28 mmol/L (22-30); Chloride 104 mmol/L (98-107); Glucose 134 mg/dL (74-99); Non-African American GFR(CKD) 26 (>60 ml/min/1.73 sqM); Sodium 139 mmol/L (137-145)
--- NOTE | 2021-08-13 14:47 | P.CONS ---
History of Present Illness - Reason for Consult Consult date: 08/13/21 Drop in hemoglobin Requesting physician: Devendra E Nishi - Chief Complaint Lower extremity swelling, left hip swelling - History of Present Illness This is 76-year-old male with a past medical history of atrial fibrillation, prostate cancer, dementia, diabetes mellitus, hyperlipidemia, hypertension renal disease who presented to the emergency room with increased swelling in his lower extremities especially in the left lower extremity over the last 2 days. The patient is on Coumadin for his atrial fibrillation and had a supratherapeutic INR at 3.3. Of 2.32. Gastroenterology was consulted for drop in hemoglobin from 11.0 to 9.9 today. The patient denies any signs or symptoms of GI bleed. He denies any black stool or blood in his stool. Denies any abdominal pain, nausea, or vomiting. States he has no previous history of GI bleed or peptic ulcer disease. He does have a history of anemia and underwent an upper and lower endoscopy on 04/28/[address] Hodgsonania no evidence of any GI bleed at the upper or lower GI tract. Review of Systems REVIEW OF SYSTEMS: CARDIOPULMONARY: No chest pain or shortness of breath. Significant +2-3 pitting edema bilateral lower extremities left greater than right. Gastrointestinal: No epigastric or abdominal pain. No nausea or vomiting. No hematemesis, coffee-ground emesis. No rectal bleeding, or melena. GENITOURINARY: No dysuria or hematuria. MUSCULOSKELETAL: Reports normal range of motion., Joint pain. SKIN: No rashes. No jaundice. ENDOCRINE: No chills, fevers. No excessive weight gain or loss. No polydipsia or polyuria. PSYCHIATRIC: Unremarkable. NEUROLOGY: No change in mental status. Denies dizziness, headache. ENT: Vision unremarkable. CONSTITUTIONAL: No recent weight loss. No fever, chills, night sweats. 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 Decker. 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 Past Drug Use History: None Reported - Past Family History Mother Family Medical History: Cancer Additional Family Medical History / Comment(s): stomach cancer Medications and Allergies Home Medications Medication Instructions Recorded Confirmed Type Aspirin [Adult Low Dose Aspirin EC] 81 mg PO DAILY 01/06/17 08/11/21 History Fenofibrate 160 mg PO DAILY 01/06/17 08/11/21 History [place]-3 Fatty Acids/Fish Oil [Fish 1 cap PO HS 01/06/17 08/11/21 History Oil 1,000 mg Softgel] [place]-3 Fatty Acids/Fish Oil [Fish 2 cap PO DAILY 01/06/17 08/11/21 History Oil 1,000 mg Softgel] Simvastatin [Zocor] 40 mg PO HS 01/06/17 08/11/21 History Cyanocobalamin (Vitamin B-12) 1,000 mcg PO DAILY 12/01/18 08/11/21 History [Vitamin B-12] Irbesartan 300 mg PO HS 12/01/18 08/11/21 History Pyridoxine HCl (Vitamin B6) 100 mg PO DAILY 01/09/21 08/11/21 History [Vitamin B-6] Ferrous Sulfate [Iron (65 MG 325 mg PO DAILY 04/23/21 08/11/21 History Elemental)] Cholecalciferol [Vitamin D3 (25 50 mcg PO DAILY 05/22/21 08/11/21 History Mcg = 1000 Iu)] Furosemide [Lasix] 80 mg PO DAILY 08/11/21 08/11/21 History Insulin Glargine,Hum.rec.anlog 34 units SQ HS 08/11/21 08/11/21 History [Touvi Solostar] Metoprolol Succinate [Toprol XL] 50 mg PO DAILY 08/11/21 08/11/21 History Potassium Chloride [Klor-Con 10 ER] 10 meq PO DAILY 08/11/21 08/11/21 History Sertraline [Zoloft] 50 mg PO BID 08/11/21 08/11/21 History Warfarin [Coumadin] 2.5 mg PO SUTUTHFRSA@0900 08/11/21 08/11/21 History Warfarin [Coumadin] 5 mg PO MOWE@0900 08/11/21 08/11/21 History amLODIPine [Norvasc] 10 mg PO DAILY 08/11/21 08/11/21 History cloNIDine HCL [Catapres] 0.3 mg PO BID 08/11/21 08/11/21 History metFORMIN HCL ER [Glucophage XR] 1,000 mg PO BID 08/11/21 08/11/21 History Allergies Allergy/AdvReac Type Severity Reaction Status Date / Time bee venom protein (honey bee) Allergy Unknown PASSED OUT Verified 08/11/21 11:45 X2 Physical Exam Vitals: Vital Signs Temp Pulse Resp BP Pulse Ox 08/13/21 14:00 97.3 F L 60 19 102/64 94 L 08/13/21 07:00 97.3 F L 55 L 17 115/65 97 08/13/21 00:56 97.5 F L 55 L 17 95/61 99 08/12/21 19:21 97.8 F 55 L 16 123/76 100 Intake and Output 08/12/21 08/13/21 08/13/21 22:59 06:59 14:59 Other: # Voids 3 General appearance: The patient is alert, oriented, appears in no acute distress. HET: Head is normocephalic and atraumatic. Conjunctiva pink. Sclera anicteric. Neck: Supple without lymphadenopathy. Trachea midline. Heart: S1 S2. Regular rate and rhythm. Lungs: Clear to auscultation. Abdomen: Soft, nontender, nondistended with bowel sounds. No guarding or rigidity. Skin: No rashes. No jaundice. Extremities: Normal skin color and turgor. Bilateral lower extremityedema, left greater than right. Neurological: No focal deficits. Alert and oriented x3. Results CBC & Chem 7: 08/13/21 12:32 08/13/21 12:32 Labs: Abnormal Lab Results - Last 24 Hours (Table) 08/12/21 08/12/21 08/13/21 Range/Units 17:11 21:08 05:30 RBC 3.14 L (4.40-5.60) X 10*6/uL Hgb 9.2 L (13.0-17.0) g/dL Hct 29.9 L (39.6-50.0) % MCHC 30.8 L (32.0-37.0) g/dL RDW 14.6 H (11.5-14.5) % Lymphocytes # 0.78 L (0.90-5.00) X 10*3/uL PT (9.9-11.9) sec INR (0.90-1.11) BUN (9-20) mg/dL Creatinine (0.66-1.25) mg/dL Glucose (74-99) mg/dL POC Glucose (mg/dL) 170 H 109 H (75-99) mg/dL 08/13/21 08/13/21 08/13/21 Range/Units 05:30 07:02 11:25 RBC (4.40-5.60) X 10*6/uL Hgb (13.0-17.0) g/dL Hct (39.6-50.0) % MCHC (32.0-37.0) g/dL RDW (11.5-14.5) % Lymphocytes # (0.90-5.00) X 10*3/uL PT 24.5 H (9.9-11.9) sec INR 2.32 H (0.90-1.11) BUN (9-20) mg/dL Creatinine (0.66-1.25) mg/dL Glucose (74-99) mg/dL POC Glucose (mg/dL) 141 H 148 H (75-99) mg/dL 08/13/21 08/13/21 Range/Units 12:32 12:32 RBC 3.24 L (4.40-5.60) X 10*6/uL Hgb 9.9 L (13.0-17.0) g/dL Hct 31.4 L (39.6-50.0) % MCHC (32.0-37.0) g/dL RDW (11.5-14.5) % Lymphocytes # (0.90-5.00) X 10*3/uL PT (9.9-11.9) sec INR (0.90-1.11) BUN 54 H (9-20) mg/dL Creatinine 2.30 H (0.66-1.25) mg/dL Glucose 134 H (74-99) mg/dL POC Glucose (mg/dL) (75-99) mg/dL Assessment and Plan (1) Anemia Narrative/Plan: 6-year-old male who presented to the emergency department with concerns for increased swelling in his lower extremities especially the left. Apparently he has some collection around his left hip and was admitted for such. The patient has a history of atrial fibrillation and is on Coumadin he had an INR of 3.3 on admission was given vitamin K with a repeat of 2.3. Patient's admitting hemoglobin was 11.0 and he had a small drop to 9.9 today. Gastroenterology was consulted for drop in hemoglobin due to supratherapeutic INR. Patient denies any signs or symptoms of GI bleed. He has a history of chronic anemia and actually was worked up with upper and lower endoscopy on 04/28/[address] Snowden no evidence of upper or lower GI bleed. Iron studies are currently pending. He has multiple comorbidities and labs are consistent with a normal sed rate normal chromic anemia likely anemia of chronic disease. No plans on endoscopic evaluation. Conservative management and will continue to follow hemoglobin. Current Visit: Yes Status: Acute Code(s): D64.9 - ANEMIA, UNSPECIFIED SNOMED Code(s): 678557279 Plan: 1. Diet as tolerated 2. Continue symptomatic and supportive care 3. Iron studies pending 4. Repeat CBC in the morning 5. No plans for endoscopic evaluation. Patient recently had EGD and colonoscopy 04/28/2021 with no evidence of GI bleed as part of his workup for anemia. Patient with no signs or symptoms of GI bleed. 6. Continue to monitor signs and symptoms of GI bleed Thank you for this consultation, we will continue to follow. Dr. Benitez Butterfield I agree with the dictator's note, documented as a scribe by Sarah Vieira.
[2021-08-13 16:26] LABS: Glucose,Whole Blood 145 mg/dL (75-99)
[2021-08-13] MEDS ORDERED: WARFARIN 2.5 MG TAB PO ONE (18:00)
--- NOTE | 2021-08-13 19:54 | CONS ---
CONSULTATION REASON FOR CONSULTATION: Renal failure. HISTORY OF PRESENT ILLNESS: Patient is a 76-year-old male with history of chronic kidney disease, NKF stage 4, with baseline GFR of about 24 to 27 mL/minute and baseline creatinine about 2 mg/dL. Patient was admitted to the hospital with complaints of increased pain and swelling in his legs, particularly the left leg. He denied any recent history of fall. Patient does have significant edema in his lower extremities. He does have a history of left hip arthroplasty about 16 years ago and has been evaluated by Orthopedic Surgery. Serum creatinine was 2.47 on admission. Now it is down to 2.3 today. Last creatinine 2.5 on 05/25/2021. Patient is currently voiding. Blood pressure is slightly on the lower side with one systolic noted at 95 and mostly about 110 to 115 mmHg. PAST MEDICAL HISTORY: Significant for chronic kidney disease, hypertension, osteoarthritis, atrial fibrillation, dementia, type 2 diabetes, hyperlipidemia, BPH, prostatic cancer with history of radiation therapy. PAST SURGICAL HISTORY: Appendectomy, bilateral hip arthroplasty, left carpal tunnel surgery, surgery on right eye from metal in the eye. SOCIAL HISTORY: Patient is a former smoker. No history of drug abuse or alcohol abuse. MEDICATIONS: Medications prior to admission included aspirin, fenofibrate, fish oil, Zocor, vitamin B12, B6, iron, D3, Lasix, Toprol, potassium, Zoloft, Coumadin, Norvasc, clonidine, Glucophage. ALLERGIES: ALLERGIES include HONEY BEE. PHYSICAL EXAMINATION: Patient is currently comfortable, awake not in any acute distress. Alert, oriented x3. Blood pressure was 102/64, heart rate 60 per minute. He is afebrile. EXAMINATION OF THE HEART: S1 and S2. EXAMINATION OF LUNGS: Bilateral breath sounds are heard. Abdomen is soft, non-tender. Morbidly obese. Examination of lower extremities shows bilateral edema, worse on the left leg. VEHICLE SERVICE AGENT EXAM: Grossly intact. LABS: Sodium 139, potassium 5.0, chloride 104, BUN 54, creatinine 2.3, calcium 9.0, hemoglobin 9.9 g/dL. Chest x-ray is not done. ASSESSMENT: 1. Chronic kidney disease, NKF stage 4. Baseline creatinine around 2 mg/dL. Serum creatinine is not far from baseline. It is actually slightly improved from yesterday. Check post-void residual. Rule out urine retention. Patient does have evidence of volume overload. I will switch his Lasix to IV. Blood pressure is on the lower side; therefore the Cozaar will be decreased. Potassium is also at the upper limit of normal, and therefore I will discontinue the potassium supplementation. 2. Left leg pain, possibly related to the hip, being followed by Orthopedic Surgery. 3. Anemia of chronic disease. Rule out iron deficiency. 4. History of prostatic cancer. PLAN: Change Lasix to IV. Check post-void residual. Rule out urine retention. Repeat labs in a.m. Decrease Cozaar, as blood pressure is significantly low. I will also decrease the dose of Norvasc. Check accurate I's and O's. Thank you for this consultation. Will continue to follow the patient with you during his hospitalization. INGA / AJN: [id number] /
[2021-08-13 20:10] LABS: Glucose,Whole Blood 216 mg/dL (75-99)
[2021-08-13] MEDS: ATORVASTATIN 20 MG TAB PO SCH (20:38)
[2021-08-13] MEDS ORDERED: LOSARTAN 25 MG TAB PO SCH (21:00)
[2021-08-14 01:13] LABS: % Iron Saturation 9.84 (15.00-50.00); Iron 29 ug/dL (65-175); Total Iron Binding Capacity 297 ug/dL (228-460)
[2021-08-14] MEDS: HYDROcodone/APAP 5-325MG 1 EACH TAB PO PRN ×2 (01:45→06:08)
[2021-08-14 06:16] LABS: INR 2.1 (<1.2); Prothrombin Time 20.2 sec (9.0-12.0)
[2021-08-14 06:58] LABS: Glucose,Whole Blood 150 mg/dL (75-99)
[2021-08-14] MEDS: cloNIDine HCL 0.1 MG TAB PO SCH (08:45)
[2021-08-14] MEDS: CHOLECALCIFEROL 25 MCG (1000 IU) TABLET PO SCH (08:45)
[2021-08-14] MEDS: FERROUS SULFATE 325 MG TAB PO SCH (08:46)
[2021-08-14] MEDS: POTASSIUM CHLORIDE ER 10 MEQ TAB.ER.PRT PO SCH (08:46)
[2021-08-14] MEDS: ASPIRIN 81 MG PO SCH (08:46)
[2021-08-14] MEDS: FENOFIBRATE 160 MG TAB PO SCH (08:46)
[2021-08-14] MEDS: SERTRALINE 50 MG TAB PO SCH (08:46)
[2021-08-14] MEDS: CYANOCOBALAMIN 500 MCG TAB PO SCH (08:46)
[2021-08-14] MEDS: METOPROLOL SUCCINATE (ER) 50 MG TAB.ER.24H PO SCH (08:46)
[2021-08-14] MEDS: INSULIN ASPART (NovoLOG) 100 UNIT/ML VIAL SQ SCH ×2 (08:47→12:22)
[2021-08-14] MEDS: PANTOPRAZOLE 40 MG/10 ML VIAL IVP SCH (08:48)
[2021-08-14] MEDS: PYRIDOXINE 50 MG TAB PO SCH (08:48)
[2021-08-14] MEDS ORDERED: amLODIPine 5 MG TAB PO SCH (09:00)
[2021-08-14] MEDS ORDERED: FUROSEMIDE 10 MG/ML 4 ML VIAL IV SCH (09:00)
[2021-08-14] MEDS ORDERED: FOLIC ACID 1 MG TAB PO SCH (09:15)
[2021-08-14 09:32] LABS: HCT 29.3 % (39.6-50.0); HGB 8.9 g/dL (13.0-17.0); MCH 29.1 pg (27.0-32.0); MCHC 30.4 g/dL (32.0-37.0); MCV 95.8 fL (80.0-97.0); Mean Platelet Volume 10.5 fL (9.5-12.2); Platelet Count 267 X 10*3/uL (140-440); RBC 3.06 X 10*6/uL (4.40-5.60); RDW 14.6 % (11.5-14.5)
[2021-08-14 10:07] VITALS: BP 156/77; PULSE 94; RESP 18; TEMP 97.5
[2021-08-14 10:14] LABS: African American GFR (CKD) 29.4 (60.0-200.0); Anion Gap 11.8 mmol/L (10.00-18.00); BUN/Creat Ratio 19.45 Ratio (12.00-20.00); Blood Urea Nitrogen 46.3 mg/dL (9.0-27.0); Calcium 8.9 mg/dL (8.7-10.3); Carbon Dioxide 25.1 mmol/L (20.0-27.5); Non-African American GFR(CKD) 25.3 (60.0-200.0); Potassium 4.9 mmol/L (3.5-5.5)
[2021-08-14 12:04] LABS: Glucose,Whole Blood 142 mg/dL (75-99)
--- NOTE | 2021-08-14 13:55 | P.PN ---
Subjective Progress Note Date: 08/14/21 Principal diagnosis: Anemia This is 76-year-old male with a past medical history of atrial fibrillation, prostate cancer, dementia, diabetes mellitus, hyperlipidemia, hypertension renal disease who presented to the emergency room with increased swelling in his lower extremities especially in the left lower extremity over the last 2 days. The patient is on Coumadin for his atrial fibrillation and had a supratherapeutic INR at 3.3. Of 2.32. Gastroenterology was consulted for drop in hemoglobin from 11.0 to 9.9 today. The patient denies any signs or symptoms of GI bleed. He denies any black stool or blood in his stool. Denies any abdominal pain, nausea, or vomiting. States he has no previous history of GI bleed or peptic ulcer disease. He does have a history of anemia and underwent an upper and lower endoscopy on 04/28/[address] Hodgsonania no evidence of any GI bleed at the upper or lower GI tract. 08/14/2021 Patient was seen and examined as a follow-up. He again denies any signs or symptoms of GI bleed. He denies any blood in his stool or black stool. H emoglobin 8.9. Objective - Vital Signs Vital signs: Vital Signs Temp 97.3 F L 08/14/21 00:46 Pulse 55 L 08/14/21 00:46 Resp 16 08/14/21 00:46 BP 121/73 08/14/21 00:46 Pulse Ox 99 08/14/21 00:46 Intake & Output 08/13/21 08/14/21 08/14/21 18:59 06:59 18:59 Other: # Voids 0 - Exam General appearance: The patient is alert, oriented, appears in no acute distres s. HET: Head is normocephalic and atraumatic. Conjunctiva pink. Sclera anicteric. Neck: Supple without lymphadenopathy. Abdomen: Soft, nontender, nondistended with bowel sounds. No guarding or rigidity. Extremities: Normal skin color and turgor. No pedal edema Skin: No rashes, no jaundice Neurological: No focal deficits. Alert and oriented -3. - Labs CBC & Chem 7: 08/14/21 05:33 08/14/21 05:33 Labs: Abnormal Lab Results - Last 24 Hours (Table) 08/13/21 08/13/21 08/13/21 Range/Units 11:25 12:32 12:32 RBC 3.24 L (4.30-5.90) m/uL Hgb 9.9 L (13.0-17.5) gm/dL Hct 31.4 L (39.0-53.0) % PT (9.0-12.0) sec INR (<1.2) BUN 54 H (9-20) mg/dL Creatinine 2.30 H (0.66-1.25) mg/dL Glucose 134 H (74-99) mg/dL POC Glucose (mg/dL) 148 H (75-99) mg/dL Iron 29 L (65-175) ug/dL % Saturation 9.84 L (15.00-50.00) Ferritin 401.0 H (22.0-322.0) ng/mL Folate 3.40 L (4.40-31.00) ng/mL 08/13/21 08/13/21 08/14/21 Range/Units 16:25 20:07 05:33 RBC (4.30-5.90) m/uL Hgb (13.0-17.5) gm/dL Hct (39.0-53.0) % PT 20.2 H (9.0-12.0) sec INR 2.1 H (<1.2) BUN (9-20) mg/dL Creatinine (0.66-1.25) mg/dL Glucose (74-99) mg/dL POC Glucose (mg/dL) 145 H 216 H (75-99) mg/dL Iron (65-175) ug/dL % Saturation (15.00-50.00) Ferritin (22.0-322.0) ng/mL Folate (4.40-31.00) ng/mL 08/14/21 Range/Units 06:57 RBC (4.30-5.90) m/uL Hgb (13.0-17.5) gm/dL Hct (39.0-53.0) % PT (9.0-12.0) sec INR (<1.2) BUN (9-20) mg/dL Creatinine (0.66-1.25) mg/dL Glucose (74-99) mg/dL POC Glucose (mg/dL) 150 H (75-99) mg/dL Iron (65-175) ug/dL % Saturation (15.00-50.00) Ferritin (22.0-322.0) ng/mL Folate (4.40-31.00) ng/mL Assessment and Plan (1) Anemia Narrative/Plan: 6-year-old male who presented to the emergency department with concerns for increased swelling in his lower extremities especially the left. Apparently he has some collection around his left hip and was admitted for such. The patient has a history of atrial fibrillation and is on Coumadin he had an INR of 3.3 on admission was given vitamin K with a repeat of 2.3. Patient's admitting hemoglobin was 11.0 and he had a small drop to 9.9 today. Gastroenterology was consulted for drop in hemoglobin due to supratherapeutic INR. Patient denies any signs or symptoms of GI bleed. He has a history of chronic anemia and actually was worked up with upper and lower endoscopy on 04/28/[address] Snowden no evidence of upper or lower GI bleed. Iron studies are currently pending. He has multiple comorbidities and labs are consistent with a normal sed rate normal chromic anemia likely anemia of chronic disease. No plans on endoscopic evaluation. Conservative management and will continue to follow hemoglobin. Current Visit: Yes Status: Acute Code(s): D64.9 - ANEMIA, UNSPECIFIED SNOMED Code(s): 078704403 Plan: 1. Diet as tolerated 2. Continue symptomatic and supportive care 3. Iron studies reviewed, recommend outpatient oral iron 4. No plans for endoscopic evaluation. Patient recently had EGD and colonosco py 04/28/2021 with no evidence of GI bleed as part of his workup for anemia. Patient with no signs or symptoms of GI bleed. 5. Discuss with patient he may follow up outpatient if he should have signs or symptoms of GI bleed. Patient verbalized understanding. Patient is cleared by gastroenterology for discharge Thank you for allowing us to participate in the care of the patient, the GI service will sign off, gastroenterology will not be available at the hospital this weekend and through next week. If further evaluation by gastroenterology is required the patient will need transfer as per the primary team's discretion. Dr. Benitez Butterfield I agree with the dictator's note, documented as a scribe by Sarah Cain
--- NOTE | 2021-08-14 17:13 | PN ---
PROGRESS NOTE The patient is seen for followup for chronic kidney disease and acute kidney injury. He He was admitted with complaints of pain in his left leg. There is evidence of significant volume overload. Patient's Lasix was switched to IV. On examination today, blood pressure was 121/73, heart rate 55 per minute. He is afebrile. Examination of the heart S1, S2. Examination of the lungs, bilateral breath sounds are heard. Abdomen is soft, morbidly obese. Examination of lower extremities shows significant edema 2+ bilaterally more in the left leg. TECHNOLOGY RECRUITER exam grossly intact. LAB: Show sodium 140, potassium 4.9, chloride 103, BUN 46.3, serum creatinine 2.4. ASSESSMENT: 1. Chronic kidney disease stage 4. Baseline creatinine around 2 with an element of mild acute kidney injury. Currently maintained on IV Lasix. There are plans for discharge. Patient could be discharged with p.o. Lasix. He will need repeat labs shortly post discharge and an increase in his diuretics depending upon his volume status as outpatient. The Cozaar dose has been decreased as his blood pressure was on the lower side. 2. Left leg pain with history of arthroplasty many years ago, being followed by Orthopedic surgery, currently improved. 3. Anemia of chronic disease. 4. History of prostatic cancer. PLAN: If the patient is discharged, he may continue with the Lasix 60 mg p.o. b.i.d. and he will need to continue with the decreased dose of Cozaar as his blood pressure is on the lower side. This will help with the diuresis as well. MMODL / IJN: [id number] /
[2021-08-14] MEDS ORDERED: WARFARIN 2.5 MG TAB PO ONE (18:00)
--- NOTE | 2021-08-15 07:40 | P.DS ---
Providers Date of admission: 08/13/21 06:47 Attending physician: Pati Tobin Consults: 08/11/21 15:11 Consult Physician Routine Consulting Provider: Chang Alberts Consult Reason/Comments: Fluid collection of thigh and hip, leg pain Do you want consulting provider notified?: Yes 08/12/21 14:25 Consult Physician Urgent Consulting Provider: Danelle Decker Consult Reason/Comments: kid inj , ckd st.IV Do you want consulting provider notified?: Yes 08/13/21 12:20 Consult Physician Urgent Consulting Provider: Elham Butterfield Consult Reason/Comments: hemoglobin drop while coagulopathic Do you want consulting provider notified?: Yes Primary care physician: Ginna Carter Hospital Course: Diagnoses: - Subacute left thigh and hip pain mostly secondary to a large fluid collection within the lateral aspect of the hip measuring at least 21 cm x 17 cm extending into posterior and anterior thigh compartments. 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 His PCP is Dr. Carter who went into his office yesterday and saw his prosthetic assistant gave him a pain shot in his left but to help him with pain and walking but I did not do much for him still painful for him to walk, also he is been delivered more by stiffness in his joints if he sits for long time. His left-sided pain is mainly on the medial and lateral side and he rated as 5/10. Pelvic CT: Bilateral hip arthroplasty changes hardware appears intact. There is a large fluid collection within the lateral aspect of the hip measuring at least 21 cm x 17 cm extending into posterior and anterior thigh compartments. There is no evidence of fracture. Orthopedic team evaluated the patient and looking chronic for him they recommended pain management and follow-up outpatient in the office and an appointment made for him with Dr. Rabago upon the recommendation on a 08/27 Also has some low drop in hemoglobin, GI service evaluated the patient and cleared her for discharge as he had recent EGD and colonoscopy done, please refer to their notes for more details. However his folic acid was low which is been replaced. There is no strong evidence of bleeding and GI service recommended outpatient follow-up appointment made for him with Dr. Greer jacobs on 10/21/21, patient informed and he agrees. Union Organizer Dr. Decker increase his 80 mg of daily Lasix to 60 mg twice a day upon discharge for his bilateral leg swelling. Upon patient request I call his Mrs. Garcia at [phone] and discussed the case with her with a recommendation upon discharge including but not limited to check his blood electrolytes with his PCP Dr. Carter this coming week and she agrees. On the day of discharge patient is back to baseline, he can stand up and walk to the restroom using a walker, he can also unddress himself. And patient states that her symptoms controlled and there is no much swelling in his left thigh and he agrees to be discharged. Patient does not want to go to rehab but he wants home with home care Also I spoke with his PCP Dr. Carter and discussed the case with him in details with the recommendation to check his potassium, creatinine and sodium and magnesium upon discharge and he agrees. Patient was fit for discharge by nephrology and GI services Problems and management plan were discussed with the patient and he verbalized understanding and acceptance Patient was found stable and can be discharged home in guarded prognosis however he needs follow-up as an outpatient. Patient was instructed to follow up with PCP Dr. Carter within one week and patient agrees with the appointments made for him on 08/17 Also patient was instructed to follow up with Dr. Rabago and he agrees with the appointments made for him on 08/27 Also patient was instructed to follow up with Dr. Butterfield on the explosive ordnance disposal specialist on 10/[address] Decker rating examiner on 09/17/21 and he agrees Physical exam Gen: patient is a AAOx3, no distress CVS: S1-S2, RRR, no murmur Lungs: B/L CTA, no wheezing Abdomen: soft, no distention, no tenderness, positive bowel sounds. Thigh looks normal except for very mild swelling. Very mild tenderness on both sides of the left side -Extremity: no leg edema or induration -Gait: At baseline, with walker Time spent more than 35 minutes Plan - Discharge Summary Discharge Rx Participant: Yes New Discharge Prescriptions: New Folic Acid 1 mg PO DAILY #30 tab amLODIPine [Norvasc] 5 mg PO DAILY tab Furosemide [Lasix] 60 mg PO BID #180 tab HYDROcodone/APAP 5-325MG [[place] 5-325] 1 each PO Q12HR PRN 2 Days #4 tab PRN Reason: Pain Scale 1 To 5 Omeprazole [PriLOSEC] 20 mg PO AC-BID #60 cap Continue Glad[place]-3 Fatty Acids/Fish Oil [Fish Oil 1,000 mg Softgel] 1 cap PO HS [place]-3 Fatty Acids/Fish Oil [Fish Oil 1,000 mg Softgel] 2 cap PO DAILY Aspirin [Adult Low Dose Aspirin EC] 81 mg PO DAILY Simvastatin [Zocor] 40 mg PO HS Fenofibrate 160 mg PO DAILY Irbesartan 300 mg PO HS Cyanocobalamin (Vitamin B-12) [Vitamin B-12] 1,000 mcg PO DAILY Warfarin [Coumadin] 5 mg PO MOWE@0900 Warfarin [Coumadin] 2.5 mg PO SUTUTHFRSA@0900 Sertraline [Zoloft] 50 mg PO BID Potassium Chloride [Klor-Con 10 ER] 10 meq PO DAILY Metoprolol Succinate [Toprol XL] 50 mg PO DAILY metFORMIN HCL ER [Glucophage XR] 1,000 mg PO BID cloNIDine HCL [Catapres] 0.3 mg PO BID Pyridoxine HCl (Vitamin B6) [Vitamin B-6] 100 mg PO DAILY Cholecalciferol [Vitamin D3 (25 Mcg = 1000 Iu)] 50 mcg PO DAILY Insulin Glargine,Hum.rec.anlog [Christin [place]] 34 units SQ HS Changed Ferrous Sulfate [Iron (65 MG Elemental)] 325 mg PO BID #60 tab Discontinued Furosemide [Lasix] 80 mg PO DAILY amLODIPine [Norvasc] 10 mg PO DAILY Discharge Medication List Aspirin [Adult Low Dose Aspirin EC] 81 mg PO DAILY 01/06/17 [History] Fenofibrate 160 mg PO DAILY 01/06/17 [History] Gladstone-3 Fatty Acids/Fish Oil [Fish Oil 1,000 mg Softgel] 1 cap PO HS 01/06/17 [History] [place]-3 Fatty Acids/Fish Oil [Fish Oil 1,000 mg Softgel] 2 cap PO DAILY 01/06/17 [History] Simvastatin [Zocor] 40 mg PO HS 01/06/17 [History] Cyanocobalamin (Vitamin B-12) [Vitamin B-12] 1,000 mcg PO DAILY 12/01/18 [History] Irbesartan 300 mg PO HS 12/01/18 [History] Pyridoxine HCl (Vitamin B6) [Vitamin B-6] 100 mg PO DAILY 01/09/21 [History] Cholecalciferol [Vitamin D3 (25 Mcg = 1000 Iu)] 50 mcg PO DAILY 05/22/21 [History] Insulin Glargine,Hum.rec.anlog [[place] Solostar] 34 units SQ HS 08/11/21 [History] Metoprolol Succinate [Toprol XL] 50 mg PO DAILY 08/11/21 [History] Potassium Chloride [Klor-Con 10 ER] 10 meq PO DAILY 08/11/21 [History] Sertraline [Zoloft] 50 mg PO BID 08/11/21 [History] Warfarin [Coumadin] 2.5 mg PO SUTUTHFRSA@0900 08/11/21 [History] Warfarin [Coumadin] 5 mg PO MOWE@0900 08/11/21 [History] cloNIDine HCL [Catapres] 0.3 mg PO BID 08/11/21 [History] metFORMIN HCL ER [Glucophage XR] 1,000 mg PO BID 08/11/21 [History] Ferrous Sulfate [Iron (65 MG Elemental)] 325 mg PO BID #60 tab 08/14/21 [Rx] Folic Acid 1 mg PO DAILY #30 tab 08/14/21 [Rx] Furosemide [Lasix] 60 mg PO BID #180 tab 08/14/21 [Rx] HYDROcodone/APAP 5-325MG [[place] 5-325] 1 each PO Q12HR PRN 2 Days #4 tab 08/14/21 [Rx] Omeprazole [PriLOSEC] 20 mg PO AC-BID #60 cap 08/14/21 [Rx] amLODIPine [Norvasc] 5 mg PO DAILY tab 08/14/21 [Rx] Follow up Appointment(s)/Referral(s): Danelle Decker MD [STAFF PHYSICIAN] - 09/17/21 10:20 am Elham Butterfield MD [STAFF PHYSICIAN] - 10/21/21 2:00 pm () Ginna Carter DO [Primary Care Provider] - 08/17/21 2:00 pm (we recommend to check your blood test with your doctor including kidney function ,electrolytes eg potassium and magensium ) [facility], [NON-STAFF] - ([facility] will call you to schedule your in home visits. ) Tunde Rabago MD [Medical Doctor] - 08/27/21 1:30 pm Activity/Diet/Wound Care/Special Instructions: renal diet ( low potassium and sodium) Activity is restricted till you see your doctor we recommend to check your blood test with your doctor including kidney function ,electrolytes eg potassium and magensium Discharge Disposition: HOME WITH HOME HEALTH SERVICES
--- NOTE | 2021-08-19 08:10 | CDI ---
Documentation Clarification Form Date: 08/19/2021 08:00:23 AM From: Tunde Whaley Phone: Admit Date: 08/13/2021 06:47:00 AM Patient Name: Babatunde Peters Visit Number: [id number] Discharge Date: 08/14/2021 04:55:00 PM ATTENTION: The Clinical Documentation Specialists (CDI) and [facility] Coding Staff appreciate your assistance in clarifying documentation. Please respond to the clarification below the line at the bottom and electronically sign. The CDI & [facility] Coding staff will review the response and follow-up if needed. Please note: Queries are made part of the Legal Health Record. If you have any questions, please contact the author of this message via ITS. Dr. Devendra Almodovar Left hip fluid collection is documented in the discharge summary and patient had a prior L hip arthroplasty. Additional clarification is requested regarding the relationship, if any, that exists between the diagnosis and the procedure. Patients Admitting Diagnosis: L hip pain Post-Operative Diagnosis: Procedure performed: History/Risk Factors: Left hip fluid collection Clinical Indicators: Treatment: Consults: What relationship, if any, exists between the diagnosis of L hip fluid collection and the left hip replacement: [ ] fluid collection is a complication of the hip replacement. [ ] fluid collection is an expected outcome of the surgical procedure [ ] fluid collection is related to patients co-morbid condition(s) of Coumadin coagulopathy and is not a complication of the procedure (hematoma). [ ] complication has been ruled out [ ] Other please specify ____ [ ] Unable to determine Other please specify : i refer you to orthopedic team please MTDD
--- NOTE | 2021-08-25 11:26 | CDI ---
Documentation Clarification Form Date: 08/25/2021 11:16:32 AM From: Tunde Whaley Admit Date: 08/13/2021 06:47:00 AM Patient Name: Babatunde Peters Visit Number: [id number] Discharge Date: 08/14/2021 04:55:00 PM ATTENTION: The Clinical Documentation Specialists (CDI) and [facility] Coding Staff appreciate your assistance in clarifying documentation. Please respond to the clarification below the line at the bottom and electronically sign. The CDI & [facility] Coding staff will review the response and follow-up if needed. Please note: Queries are made part of the Legal Health Record. If you have any questions, please contact the author of this message via ITS. Dr. Chang Alberts Left hip fluid collection is documented in your consultation 08/12 and patient had a prior left hip arthroplasty. Additional clarification is requested regarding the relationship, if any, that exists between the diagnosis and the procedure. The attending physician deferred to orthopedics for this query. This will determine the principle diagnosis. Patients Admitting Diagnosis: L hip fluid collection Post-Operative Diagnosis: Procedure performed: History/Risk Factors: prior L hip arthroplasty Clinical Indicators: Treatment: Consults: orthopedic What relationship, if any, exists between the diagnosis of [fluid collection] and the procedure: [ ] L hip fluid collection is a complication of the prior L hip arthroplasty. [ ] L hip fluid collection is an expected outcome of the surgical procedure [ ] L hip fluid collection is related to patients co-morbid condition(s) of Coumadin coagulopathy and is not a complication of the procedure (Seratoma). [ ] Post operative complication has been ruled out [ ] Other please specify ____ [ ] Unable to determine Left hip fluid collection likely secondary to patients co-morbid conditions and is not a direct complication of the procedure. ELAN
== END 2021-08-14 16:55 | disposition home health service (06) | DRG 556 ==
LOC: EC 11:30 → INTOOBSV 16:13 → 4SSUR 16:13 → UNDOADMIN 16:13 → 4SSUR 21:07 → OBSVTOIN 08-13 06:47
PROVIDERS: ADMIT Hospitalist; ATTEND Hospitalist
DX: M79.89 Other specified soft tissue disorders (principal); N18.4 Chronic kidney disease, stage 4 (severe); I48.20 Chronic atrial fibrillation, unspecified; N17.9 Acute kidney failure, unspecified; R60.0 Localized edema; D63.8 Anemia in other chronic diseases classified elsewhere; E78.5 Hyperlipidemia, unspecified; E87.70 Fluid overload, unspecified; F03.90 Unspecified dementia, unspecified severity, without behavioral disturbance, psychotic disturbance, mood disturbance, and anxiety; I12.9 Hypertensive chronic kidney disease with stage 1 through stage 4 chronic kidney disease, or unspecified chronic kidney disease; E11.22 Type 2 diabetes mellitus with diabetic chronic kidney disease; H54.7 Unspecified visual loss; N40.0 Benign prostatic hyperplasia without lower urinary tract symptoms; T45.515A Adverse effect of anticoagulants, initial encounter; Z20.822 Contact with and (suspected) exposure to COVID-19; Z79.01 Long term (current) use of anticoagulants; Z79.82 Long term (current) use of aspirin; Z79.84 Long term (current) use of oral hypoglycemic drugs; Z79.899 Other long term (current) drug therapy; Z80.0 Family history of malignant neoplasm of digestive organs; Z85.46 Personal history of malignant neoplasm of prostate; Z87.891 Personal history of nicotine dependence; Z92.3 Personal history of irradiation; Z95.0 Presence of cardiac pacemaker; Z96.643 Presence of artificial hip joint, bilateral; E66.9 Obesity, unspecified; Z68.32 Body mass index [BMI] 32.0-32.9, adult; Z86.14 Personal history of Methicillin resistant Staphylococcus aureus infection; M19.90 Unspecified osteoarthritis, unspecified site; R79.1 Abnormal coagulation profile; Z96.642 Presence of left artificial hip joint
CPT/HCPCS: 36415; 72100; 72192; 80048; 82607; 82728; 82746; 83540; 83550; 83605; 85025; 85027; 85610; 85652; 85730; 86140; 87635; 96374; 99285

== ENCOUNTER 2021-10-12 19:07 | Emergency (ER) | payer MEDICARE ==
--- NOTE | 2021-10-12 20:03 | XR ---
EXAMINATION TYPE: XR Hip LT and AP Pelvis DATE OF EXAM: 10/12/2021 COMPARISON: 08/29/2021 HISTORY: Pain TECHNIQUE: 3 views FINDINGS: There is bilateral hip prosthesis. There is a posterior dislocation of the left prosthetic femoral head. The pelvic ring is intact. Sacroiliac joints are intact. No fracture seen. There is donnie e amorphous calcification around the lesser trochanter of the left femur. IMPRESSION: There is dislocation of the left hip prosthesis which is a change compared to old exam. N o fracture seen.
[2021-10-12] MEDS ORDERED: KETAMINE 10 MG/ML 20 ML VIAL IV ONE (20:08)
[2021-10-12] MEDS ORDERED: PROPOFOL 10 MG/ML 20 ML VIAL IV ONE (20:09)
--- NOTE | 2021-10-12 20:15 | ED ---
General Adult HPI <Wily Eagle - Last Filed: 10/12/21 20:42> - General Source: patient, EMS, RN notes reviewed, old records reviewed Mode of arrival: EMS <Emigdio Arreola - Last Filed: 10/12/21 21:15> - General Chief complaint: Extremity Injury, Lower Stated complaint: Lt hip injury Time Seen by Provider: 10/12/21 19:13 - History of Present Illness Initial comments: 76-year-old male presenting from snf with suspected left hip dislocation. Uncertain exactly when this occurred. The patient is wheelchair- bound. Initial history from the family indicates that this may have happened during a transfer to the bathroom. Patient has had pain throughout the day today. Apparently there was x-rays performed prior to transfer to the emergency department at that show dislocation. These images are not available. Patient is not a mandatory baseline. He is being treated for a infection in the left hip with both orthopedics and infectious disease. (Emigdio Arreola) - Related Data Home Medications Medication Instructions Recorded Confirmed Fenofibrate 160 mg PO DAILY 01/06/17 10/12/21 [place]-3 Fatty Acids/Fish Oil [Fish 1 cap PO HS 01/06/17 10/12/21 Oil 1,000 mg Softgel] [place]-3 Fatty Acids/Fish Oil [Fish 2 cap PO DAILY 01/06/17 10/12/21 Oil 1,000 mg Softgel] Cyanocobalamin (Vitamin B-12) 1,000 mcg PO DAILY 12/01/18 10/12/21 [Vitamin B-12] Pyridoxine HCl (Vitamin B6) 100 mg PO DAILY 01/09/21 10/12/21 [Vitamin B-6] Acetaminophen [Tylenol] 650 mg PO Q4H PRN 10/12/21 10/12/21 Darbepoetin Santos [Aranesp] 40 mcg SQ FR 10/12/21 10/12/21 Furosemide [Lasix] 40 mg PO BID 10/12/21 10/12/21 HYDROcodone/APAP 5-325MG [[place] 1 tab PO Q12H PRN 10/12/21 10/12/21 5-325] LORazepam [Ativan] 0.5 mg PO Q6H PRN 10/12/21 10/12/21 Losartan Potassium 100 mg PO DAILY 10/12/21 10/12/21 Omeprazole 20 mg PO BID 10/12/21 10/12/21 Sertraline [Zoloft] 50 mg PO DAILY 10/12/21 10/12/21 cloNIDine HCL 0.1 mg PO BID 10/12/21 10/12/21 Previous Rx's Medication Instructions Recorded Folic Acid 1 mg PO DAILY #30 tab 08/14/21 amLODIPine [Norvasc] 5 mg PO DAILY tab 08/14/21 Ferrous Sulfate [Iron (65 MG 325 mg PO DAILY #30 tab 09/04/21 Elemental)] cefTRIAXone [Rocephin] 2 gm IVPB Q24H 42 Days #42 each 09/04/21 Allergies Allergy/AdvReac Type Severity Reaction Status Date / Time bee venom protein (honey bee) Allergy Unknown PASSED OUT Verified 10/12/21 20:13 X2 Review of Systems ROS Other: All systems not noted in ROS Statement are negative. <Wily Eagle - Last Filed: 10/12/21 20:42> ROS Other: All systems not noted in ROS Statement are negative. <Emigdio Arreola - Last Filed: 10/12/21 21:15> ROS Statement: Those systems with pertinent positive or pertinent negative responses have been documented in the HPI. Past Medical History Past Medical History: Atrial Fibrillation, Coronary Artery Disease (CAD), Cancer, Heart Failure, Dementia, Diabetes Mellitus, Eye Disorder, GERD/Reflux, GI Bleed, Hyperlipidemia, Hypertension, Osteoarthritis (OA), Prostate Disorder, Renal Disease Additional Past Medical History / Comment(s): Pt recently admitted to [facility] on 08/13/21 with subacute L thigh and hip pain 2ndary to a large fluid collection and new low hgb. Other hx: IDDM type II, CKD stage IV, prostate cancer treated with radiation, cardiomyopathy with pacer/AICD, lower GI bleed/diverticular disease/benign colon polyps/gastritis, R eye poor vision d/t injury, R carpal tunnel syndrome History of Any Multi-Drug Resistant Organisms: MRSA Date of last positivie culture/infection: over 10 yrs (2008?) MDRO Source:: Leg Past Surgical History: AICD, Appendectomy, Heart Catheterization, Joint Replacement, Orthopedic Surgery, Pacemaker Additional Past Surgical History / Comment(s): 09/26/20 pacer/AICD at [facility], bilateral total hip arthroplasties, L shoulder surgery to remove a growth, L carpal tunnel release, R eye metal removal, EGD, colonoscopies. Past Anesthesia/Blood Transfusion Reactions: No Reported Reaction Type of Cardiac Device: Permanent Pacemaker, AICD Device Placement Date:: 09/26/20 Past Psychological History: Depression Smoking Status: Former smoker Past Alcohol Use History: None Reported Past Drug Use History: None Reported - Past Family History Mother Family Medical History: Cancer Additional Family Medical History / Comment(s): stomach cancer <Emigdio Arreola - Last Filed: 10/12/21 21:15> General Exam General appearance: alert, in no apparent distress Head exam: Present: atraumatic, normocephalic Eye exam: Present: normal appearance, PERRL ENT exam: Present: normal exam Neck exam: Present: normal inspection. Absent: tenderness, meningismus Respiratory exam: Present: normal lung sounds bilaterally. Absent: respiratory distress Cardiovascular Exam: Present: regular rate, normal rhythm GI/Abdominal exam: Present: soft. Absent: distended, tenderness, guarding Extremities exam: Present: tenderness, other (Patient has left lower extremity is internally rotated, suspect dislocation. Surgical incisions are well- healed). Absent: full ROM Neurological exam: Present: alert, oriented X3, CN II-XII intact. Absent: motor sensory deficit Psychiatric exam: Present: normal affect, normal mood Skin exam: Present: warm, dry, intact. Absent: cyanosis, diaphoretic <Emigdio Arreola N - Last Filed: 10/12/21 21:15> Course <Emigdio Arreola - Last Filed: 10/12/21 21:15> Vital Signs 10/12/21 10/12/21 10/12/21 19:19 20:28 20:33 Pulse Rate 55 L 55 L 62 Respiratory 18 18 18 Rate Blood Pressure 165/85 125/79 112/71 O2 Sat by Pulse 97 98 98 Oximetry 10/12/21 10/12/21 20:38 20:47 Pulse Rate 55 L 55 L Respiratory 16 18 Rate Blood Pressure 94/64 101/74 O2 Sat by Pulse 98 96 Oximetry - Reevaluation(s) Reevaluation #1: 10/12/21 20:[address] Rabago who is agreeable with attempt at relocation in the emergency department. (Emigdio Arreola) Procedures - Orthopedic Joint Reduction Joint #1 Consent Obtained: verbal consent, written consent Side: left Joint Reduction Location: hip Analgesia: procedural sedation Technique Used: direct manipulation Post-Reduction Neuro Exam: intact Post-Reduction Vascular Exam: intact Post Reduction X-Ray Obtained: Yes Post Reduction X-Ray Results: reduced Splint Applied: No Patient Tolerated Procedure: well <Wily Eagle - Last Filed: 10/12/21 20:42> - Procedural Sedation Procedural Sedation Start Time: 20:28 Procedural Sedation Stop Time: 21:30 Indications: fracture/dislocation reduction ASA Class: III Mallampati Airway Score: 3 Preparation: ekg monitor applied, pulse oximeter, capnometry used, supplemental O2 applied, suction/airway equipment at bedside, IV secured Ketamine: IV Ketamine Dose: 25 IV Propofol Dose (mgs): 40 Complications: none Patient Tolerated Procedure: well <Emigdio Arreola - Last Filed: 10/12/21 21:15> Medical Decision Making <Emigdio Arreola - Last Filed: 10/12/21 21:15> - Medical Decision Making 76-year-old male presenting with pain in the left hip. X-ray reveals posterior lateral dislocation. The risks and benefits of sedation and relocation are discussed with the family and the patient's medical power of insurance defense attorney his daughter. And informed consent is signed for dislocation reduction and conscious sedation. Patient's given 25 mg of ketamine and 40 mg propofol and reduction is performed without issue. Patient observed in the emergency department returns to normal mentation. He will follow-up with his orthopedic surgeon Dr. Rabago who is aware of the dislocation. (Emigdio Arreoal) Disposition <Wily Eagle - Last Filed: 10/12/21 20:42> Is patient prescribed a controlled substance at d/c from ED?: No Time of Disposition: 21:15 <Emigdio Arreola - Last Filed: 10/12/21 21:15> Clinical Impression: Dislocation of hip joint prosthesis Disposition: HOME SELF-CARE Condition: Fair Instructions (If sedation given, give patient instructions): Hip Dislocation (ED) Referrals: Ginna Martin DO [Primary Care Provider] - 1-2 days Tunde Rabago MD [Medical Doctor] - 1-2 days
[2021-10-12 20:48] VITALS: RESP 18
--- NOTE | 2021-10-12 20:53 | XR ---
EXAMINATION TYPE: XR Hip Limited LT DATE OF EXAM: 10/12/2021 COMPARISON: Today HISTORY: Post reduction TECHNIQUE: 2 views FINDINGS: There is anatomic reduction of the dislocated left hip prosthesis. No fracture seen IMPRESSION: Anatomic reduction.
[2021-10-12 22:29] VITALS: BP 164/84; PULSE 55
== END 2021-10-12 22:54 | disposition home or self-care (01) ==
LOC: EC 19:07
DX: T84.021A Dislocation of internal left hip prosthesis, initial encounter (principal); E11.9 Type 2 diabetes mellitus without complications; K21.9 Gastro-esophageal reflux disease without esophagitis; Z79.83 Long term (current) use of bisphosphonates; Z87.891 Personal history of nicotine dependence; Z91.030 Bee allergy status
CPT/HCPCS: 99285; 96374 ×2; 96375 ×2; 27250 ×2; 99283; 73501; 73502; J2704; 24999

== ENCOUNTER 2021-10-26 15:22 | Emergency (ER) | payer MEDICARE ==
[2021-10-26] MEDS ORDERED: HYDROmorphone 0.5 MG/0.5 ML SYRINGE IVP STA (16:14)
[2021-10-26] MEDS ORDERED: KETOROLAC 15 MG/ML 1 ML VIAL IVP STA (16:27)
--- NOTE | 2021-10-26 16:33 | ED ---
General Adult HPI - General Source: patient, family, EMS, RN notes reviewed Mode of arrival: EMS - History of Present Illness -: days(s) Location: left, lower extremity (hip) Severity scale (1-10): 0 Improves with: immobilization Worsens with: movement Associated Symptoms: denies other symptoms Treatments Prior to Arrival: none <Yosvany Hinson - Last Filed: 10/26/21 20:15> <Emigdio Doherty - Last Filed: 10/26/21 20:40> - General Chief complaint: Extremity Problem,Nontraumatic Stated complaint: hip dislocation Time Seen by Provider: 10/26/21 16:20 - History of Present Illness Initial comments: 76-year-old male presents to the emergency room with complaints of left hip dislocation. Family states that they're unsure what happened and why it is dislocated he was treated here on October 12 for the same hip dislocation. Patient states he has no pain at this time only with movement. Denies any other injuries. Family states that he is in severe pain and requesting pain medication. (Yosvany Hinson) - Related Data Home Medications Medication Instructions Recorded Confirmed Fenofibrate 160 mg PO DAILY 01/06/17 10/12/21 [place]-3 Fatty Acids/Fish Oil [Fish 1 cap PO HS 01/06/17 10/12/21 Oil 1,000 mg Softgel] [place]-3 Fatty Acids/Fish Oil [Fish 2 cap PO DAILY 01/06/17 10/12/21 Oil 1,000 mg Softgel] Cyanocobalamin (Vitamin B-12) 1,000 mcg PO DAILY 12/01/18 10/12/21 [Vitamin B-12] Pyridoxine HCl (Vitamin B6) 100 mg PO DAILY 01/09/21 10/12/21 [Vitamin B-6] Acetaminophen [Tylenol] 650 mg PO Q4H PRN 10/12/21 10/12/21 Darbepoetin [place] [Aranesp] 40 mcg SQ FR 10/12/21 10/12/21 Furosemide [Lasix] 40 mg PO BID 10/12/21 10/12/21 HYDROcodone/APAP 5-325MG [[place] 1 tab PO Q12H PRN 10/12/21 10/12/21 5-325] LORazepam [Ativan] 0.5 mg PO Q6H PRN 10/12/21 10/12/21 Losartan Potassium 100 mg PO DAILY 10/12/21 10/12/21 Omeprazole 20 mg PO BID 10/12/21 10/12/21 Sertraline [Zoloft] 50 mg PO DAILY 10/12/21 10/12/21 cloNIDine HCL 0.1 mg PO BID 10/12/21 10/12/21 Previous Rx's Medication Instructions Recorded Folic Acid 1 mg PO DAILY #30 tab 08/14/21 amLODIPine [Norvasc] 5 mg PO DAILY tab 08/14/21 Ferrous Sulfate [Iron (65 MG 325 mg PO DAILY #30 tab 09/04/21 Elemental)] cefTRIAXone [Rocephin] 2 gm IVPB Q24H 42 Days #42 each 09/04/21 Allergies Allergy/AdvReac Type Severity Reaction Status Date / Time bee venom protein (honey bee) Allergy Unknown PASSED OUT Verified 10/12/21 20:13 X2 Review of Systems ROS Other: All systems not noted in ROS Statement are negative. <Yosvany Hinson - Last Filed: 10/26/21 20:15> ROS Other: All systems not noted in ROS Statement are negative. <Emigdio Doherty - Last Filed: 10/26/21 20:40> ROS Statement: Those systems with pertinent positive or pertinent negative responses have been documented in the HPI. Past Medical History Past Medical History: Atrial Fibrillation, Coronary Artery Disease (CAD), Cancer, Heart Failure, Dementia, Diabetes Mellitus, Eye Disorder, GERD/Reflux, GI Bleed, Hyperlipidemia, Hypertension, Osteoarthritis (OA), Prostate Disorder, Renal Disease Additional Past Medical History / Comment(s): Pt recently admitted to [facility] on 08/13/21 with subacute L thigh and hip pain 2ndary to a large fluid collection and new low hgb. Other hx: IDDM type II, CKD stage IV, prostate cancer treated with radiation, cardiomyopathy with pacer/AICD, lower GI bleed/diverticular disease/benign colon polyps/gastritis, R eye poor vision d/t injury, R carpal tunnel syndrome History of Any Multi-Drug Resistant Organisms: MRSA Date of last positivie culture/infection: over 10 yrs (2008?) MDRO Source:: Leg Past Surgical History: AICD, Appendectomy, Heart Catheterization, Joint Replacement, Orthopedic Surgery, Pacemaker Additional Past Surgical History / Comment(s): 09/26/20 pacer/AICD at [facility], bilateral total hip arthroplasties, L shoulder surgery to remove a growth, L carpal tunnel release, R eye metal removal, EGD, colonoscopies. Past Anesthesia/Blood Transfusion Reactions: No Reported Reaction Type of Cardiac Device: Permanent Pacemaker, AICD Device Placement Date:: 09/26/20 Past Psychological History: Depression Smoking Status: Former smoker Past Alcohol Use History: None Reported Past Drug Use History: None Reported - Past Family History Mother Family Medical History: Cancer Additional Family Medical History / Comment(s): stomach cancer <Yosvany Hinson - Last Filed: 10/26/21 20:15> General Exam General appearance: alert, in no apparent distress Head exam: Present: atraumatic Eye exam: Present: other (Right pupil abnormal shape from previous trauma). Absent: scleral icterus, conjunctival injection, periorbital swelling, periorbital tenderness Neck exam: Present: normal inspection, full ROM. Absent: tenderness, meningismus, lymphadenopathy Respiratory exam: Present: normal lung sounds bilaterally. Absent: respiratory distress, accessory muscle use Cardiovascular Exam: Present: bradycardia. Absent: JVD GI/Abdominal exam: Present: soft, normal bowel sounds. Absent: distended Left Hip exam: Present: tenderness, swelling, internal rotation, shortening. Absent: full ROM Upper Leg exam: Present: tenderness. Absent: full ROM Neurovascular tendon exam: Present: no vascular compromise. Absent: abnormal cap refill, extremity cold to touch, foot drop Neurological exam: Present: alert Psychiatric exam: Present: normal affect, normal mood Skin exam: Present: warm, dry, normal color. Absent: cyanosis, diaphoretic <Yosvany Hinson - Last Filed: 10/26/21 20:15> Course Vital Signs 10/26/21 10/26/21 10/26/21 15:39 19:15 19:16 Temperature 97.8 F Pulse Rate 55 L 52 L 55 L Respiratory 16 16 16 Rate Blood Pressure 137/92 154/92 126/85 O2 Sat by Pulse 98 99 99 Oximetry 10/26/21 19:20 Temperature Pulse Rate 55 L Respiratory 18 Rate Blood Pressure 128/55 O2 Sat by Pulse 99 Oximetry Procedures - Orthopedic Joint Reduction Joint #1 Consent Obtained: verbal consent Side: left Joint Reduction Location: hip Analgesia: procedural sedation Shoulder Technique Used (if applicable): other (captain samaniego's technique) Post-Reduction Neuro Exam: intact Post-Reduction Vascular Exam: intact Post Reduction X-Ray Obtained: Yes Post Reduction X-Ray Results: reduced Splint Applied: No Patient Tolerated Procedure: well <Yosvany Hinson - Last Filed: 10/26/21 20:15> - Procedural Sedation Procedural Sedation Start Time: 19:16 Procedural Sedation Stop Time: 19:27 Indications: fracture/dislocation reduction ASA Class: II Mallampati Airway Score: 2 Preparation: cardiac surgeon applied, pulse oximeter, capnometry used, supplemental O2 applied, reversal agents at bedside, suction/airway equipment at bedside, IV secured IV Propofol Dose (mgs): 100 Complications: none Patient Tolerated Procedure: well <Emigdio Doherty - Last Filed: 10/26/21 20:40> - Orthopedic Joint Reduction Joint #1 Additional Comments: Dr Doherty at bedside (Yosvany Hinson) - Procedural Sedation Additional Comments: Patient tolerated the procedure well the hip was successfully reduced (Emigdio Doherty) Medical Decision Making <Yosvany Hinson - Last Filed: 10/26/21 20:15> - Medical Decision Making Patient presents to the emergency room with left hip dislocation. Patient was seen 2 weeks ago for left hip dislocation that was reduced. On exam the leg is flexed and internally rotated. Pedal pulses are present and leg is pink warm and dry. X-ray shows dislocated lateral superior left prosthetic femoral head. Conscious sedation with Dr. Doherty was performed Spoke with Dr. Rabago who recommended a knee immobilizer, hip adductor pillow in bed and follow-up with orthopedic associates this week. (Yosvany Hinson) Disposition Is patient prescribed a controlled substance at d/c from ED?: No Time of Disposition: 20:17 <Yosvany Hinson - Last Filed: 10/26/21 20:15> <Emigdio Doherty - Last Filed: 10/26/21 20:40> Clinical Impression: Hip dislocation, left Disposition: HOME SELF-CARE Condition: Good Instructions (If sedation given, give patient instructions): Hip Dislocation (ED) Additional Instructions: Keep your knees and toes pointed forward when you sit, walk or stand. Do not cross your legs. If you put ice pack on the site for 10-20 minutes at a time every 2-3 hours for the next 3 days while awake. Keep knee immobilizer in place, use hip abductor pillow in bed and follow-up with orthopedic associates this week. Return to the emergency room with any new or concerning symptoms. Referrals: Ginna Martin DO [Primary Care Provider] - 1-2 days
--- NOTE | 2021-10-26 17:40 | XR ---
EXAMINATION TYPE: XR Hip LT and AP Pelvis DATE OF EXAM: 10/26/2021 COMPARISON: NONE HISTORY: 10/12/2021 TECHNIQUE: 4 views FINDINGS: There is a lateral superior dislocation of the left prosthetic femoral head. No fracture se en. IMPRESSION: Dislocated hip prosthesis is a change compared to last exam.
[2021-10-26] MEDS ORDERED: PROPOFOL 10 MG/ML 20 ML VIAL IV ONE ×2 (17:53→17:58)
--- NOTE | 2021-10-26 20:00 | XR ---
EXAMINATION TYPE: XR Hip Limited LT DATE OF EXAM: 10/26/2021 COMPARISON: Today HISTORY: Post reduction TECHNIQUE: Single view FINDINGS: There appears to be anatomic good reduction of the dislocated prosthetic left femoral head. There is a 3.5 x 2.5 cm large chip fracture without displacement of the greater trochanter of the femur. IMPRESSION: Anatomic reduction. There is a large nondisplaced chip fracture of the greater trochanter of the left femur which appears to be a change compared to the recent exam of 10/12/2021.
[2021-10-26 21:41] VITALS: RESP 16
[2021-10-26 21:46] VITALS: BP 153/69; PULSE 55; TEMP 98.7
== END 2021-10-26 22:20 | disposition home or self-care (01) ==
LOC: EC 15:22
DX: S73.005A Unspecified dislocation of left hip, initial encounter (principal); F03.90 Unspecified dementia, unspecified severity, without behavioral disturbance, psychotic disturbance, mood disturbance, and anxiety; E11.9 Type 2 diabetes mellitus without complications; I10 Essential (primary) hypertension; K21.9 Gastro-esophageal reflux disease without esophagitis; Z79.83 Long term (current) use of bisphosphonates; Z87.891 Personal history of nicotine dependence; Z91.030 Bee allergy status; X58.XXXA Exposure to other specified factors, initial encounter
CPT/HCPCS: 73501; 73502; 99283; 96374; 96375; 27250; J1885; J2704

== ENCOUNTER 2021-10-29 15:03 | Emergency (ER) | payer MEDICARE ==
[2021-10-29 15:13] VITALS: TEMP 98.2
[2021-10-29] MEDS ORDERED: HYDROmorphone 1 MG/ML 1 ML SYRINGE IVP STA (15:21)
--- NOTE | 2021-10-29 15:50 | ED ---
General Adult HPI - General Chief complaint: Extremity Injury, Lower Stated complaint: Lt Hip Dislocation Time Seen by Provider: 10/29/21 15:17 Source: patient, EMS, RN notes reviewed, old records reviewed Mode of arrival: EMS - History of Present Illness Initial comments: 76-year-old male presenting with left hip pain and deformity. Patient has had recurrent hip dislocation. Patient's is uncertain exactly why he dislocated his hip. He doesn't remember specific fall or injury. This is at least the third occurrence in the past several weeks. - Related Data Home Medications Medication Instructions Recorded Confirmed Fenofibrate 160 mg PO HS 01/06/17 10/29/21 [place]-3 Fatty Acids/Fish Oil [Fish 1 cap PO HS 01/06/17 10/29/21 Oil 1,000 mg Softgel] [place]-3 Fatty Acids/Fish Oil [Fish 2 cap PO DAILY 01/06/17 10/29/21 Oil 1,000 mg Softgel] Cyanocobalamin (Vitamin B-12) 1,000 mcg PO DAILY 12/01/18 10/29/21 [Vitamin B-12] Pyridoxine HCl (Vitamin B6) 100 mg PO DAILY 01/09/21 10/29/21 [Vitamin B-6] Acetaminophen [Tylenol] 650 mg PO Q4H PRN 10/12/21 10/29/21 Darbepoetin Santos [Aranesp] 40 mcg SQ FR 10/12/21 10/29/21 Furosemide [Lasix] 40 mg PO BID 10/12/21 10/29/21 HYDROcodone/APAP 5-325MG [[place] 1 tab PO Q12H PRN 10/12/21 10/29/21 5-325] LORazepam [Ativan] 0.5 mg PO Q6H PRN 10/12/21 10/29/21 Losartan Potassium 100 mg PO HS 10/12/21 10/29/21 Omeprazole 20 mg PO BID 10/12/21 10/29/21 Sertraline [Zoloft] 50 mg PO HS 10/12/21 10/29/21 cloNIDine HCL 0.1 mg PO BID 10/12/21 10/29/21 Cefuroxime Axetil [Ceftin] 500 mg PO BID 10/29/21 10/29/21 Folic Acid 1 mg PO HS 10/29/21 10/29/21 Insulin Glargine,Hum.rec.anlog 12 unit SQ HS 10/29/21 10/29/21 [Basaglar Kwikpen U-100] Metoprolol Succinate (ER) [Toprol 50 mg PO HS 10/29/21 10/29/21 Xl] Potassium Chloride [Klor-Con 10 ER] 10 meq PO HS 10/29/21 10/29/21 Simvastatin [Zocor] 20 mg PO DAILY 10/29/21 10/29/21 amLODIPine [Norvasc] 5 mg PO HS 10/29/21 10/29/21 Previous Rx's Medication Instructions Recorded Ferrous Sulfate [Iron (65 MG 325 mg PO DAILY #30 tab 09/04/21 Elemental)] Allergies Allergy/AdvReac Type Severity Reaction Status Date / Time bee venom protein (honey bee) Allergy Unknown PASSED OUT Verified 10/29/21 16:34 X2 Review of Systems ROS Statement: Those systems with pertinent positive or pertinent negative responses have been documented in the HPI. ROS Other: All systems not noted in ROS Statement are negative. Past Medical History Past Medical History: Atrial Fibrillation, Coronary Artery Disease (CAD), Canc er, Heart Failure, Dementia, Diabetes Mellitus, Eye Disorder, GERD/Reflux, GI Bleed, Hyperlipidemia, Hypertension, Osteoarthritis (OA), Prostate Disorder, Renal Disease Additional Past Medical History / Comment(s): Pt recently admitted to [facility] on 08/13/21 with subacute L thigh and hip pain 2ndary to a large fluid collection and new low hgb. Other hx: IDDM type II, CKD stage IV, prostate cancer treated with radiation, cardiomyopathy with pacer/AICD, lower GI bleed/diverticular disease/benign colon polyps/gastritis, R eye poor vision d/t injury, R carpal tunnel syndrome History of Any Multi-Drug Resistant Organisms: MRSA Date of last positivie culture/infection: over 10 yrs (2008?) MDRO Source:: Leg Past Surgical History: AICD, Appendectomy, Heart Catheterization, Joint Replacement, Orthopedic Surgery, Pacemaker Additional Past Surgical History / Comment(s): 09/26/20 pacer/AICD at [facility], bilateral total hip arthroplasties, L shoulder surgery to remove a growth, L carpal tunnel release, R eye metal removal, EGD, colonoscopies. Past Anesthesia/Blood Transfusion Reactions: No Reported Reaction Type of Cardiac Device: Permanent Pacemaker, AICD Device Placement Date:: 09/26/20 Past Psychological History: Depression Smoking Status: Former smoker Past Alcohol Use History: None Reported Past Drug Use History: None Reported - Past Family History Mother Family Medical History: Cancer Additional Family Medical History / Comment(s): stomach cancer General Exam General appearance: alert, in no apparent distress Head exam: Present: atraumatic, normocephalic Eye exam: Present: normal appearance, PERRL ENT exam: Present: normal exam Neck exam: Present: normal inspection. Absent: tenderness, meningismus Respiratory exam: Present: normal lung sounds bilaterally. Absent: respiratory distress, wheezes Cardiovascular Exam: Present: regular rate, normal rhythm GI/Abdominal exam: Present: soft. Absent: distended, tenderness Extremities exam: Present: other (Left lower extremity is shortened, internally rotated distal pulses are intact.) Course Vital Signs 10/29/21 10/29/21 10/29/21 15:05 16:24 16:30 Temperature 98.2 F Pulse Rate 54 L 54 L 54 L Respiratory 18 18 18 Rate Blood Pressure 137/86 121/74 122/76 O2 Sat by Pulse 98 97 100 Oximetry 10/29/21 10/29/21 10/29/21 16:35 16:40 16:45 Temperature Pulse Rate 56 L 55 L 54 L Respiratory 18 18 16 Rate Blood Pressure 121/76 116/77 120/79 O2 Sat by Pulse 100 100 100 Oximetry 10/29/21 10/29/21 16:50 17:05 Temperature Pulse Rate 52 L 54 L Respiratory 18 18 Rate Blood Pressure 102/67 99/66 O2 Sat by Pulse 100 100 Oximetry Procedures - Orthopedic Joint Reduction Joint #1 Consent Obtained: written consent Side: left Joint Reduction Location: hip Analgesia: procedural sedation Technique Used: traction/counter-traction Post-Reduction Neuro Exam: intact Post-Reduction Vascular Exam: intact Post Reduction X-Ray Obtained: Yes Post Reduction X-Ray Results: reduced Splint Applied: Yes Patient Tolerated Procedure: well - Procedural Sedation Procedural Sedation Start Time: 16:30 Procedural Sedation Stop Time: 17:05 Indications: fracture/dislocation reduction ASA Class: III Mallampati Airway Score: 3 Preparation: quality assurance monitor final applied, pulse oximeter, capnometry used, supplemental O2 applied, reversal agents at bedside, suction/airway equipment at bedside, IV secured Ketamine: IV Ketamine Dose: 60 IV Propofol Dose (mgs): 80 Complications: none Patient Tolerated Procedure: well Medical Decision Making - Medical Decision Making 76-year-old male with left hip dislocation. Consent is obtained and the hip was reduced with procedural sedation. Patient tolerated the procedure well. He is placed in a knee immobilizer. He is scheduled for orthopedic evaluation in the upcoming week. [facility] will [facility]. Disposition Clinical Impression: Dislocation of hip joint prosthesis Disposition: HOME SELF-CARE Condition: Fair Instructions (If sedation given, give patient instructions): Hip Dislocation (ED) Is patient prescribed a controlled substance at d/c from ED?: No Referrals: Ginna Martin DO [Primary Care Provider] - 1-2 days Tunde Rabago MD [Medical Doctor] - 1-2 days Time of Disposition: 17:08
--- NOTE | 2021-10-29 16:05 | XR ---
EXAMINATION TYPE: XR Hip Complete LT DATE OF EXAM: 10/29/2021 COMPARISON: 08/11/2021 HISTORY: Pain TECHNIQUE: 2 view left hip FINDINGS: There is dislocation of the femoral prosthesis from the acetabular component. An acute osseous fracture is not identified. IMPRESSION: 1. Dislocation of the femoral prosthesis from the acetabular component left hip
[2021-10-29] MEDS ORDERED: KETAMINE 10 MG/ML 20 ML VIAL IV ONE (16:16)
[2021-10-29] MEDS ORDERED: PROPOFOL 10 MG/ML 20 ML VIAL IV ONE ×2 (16:17→16:45)
[2021-10-29] MEDS ORDERED: KETAMINE 10 MG/ML 20 ML VIAL IV STA (16:45)
[2021-10-29] MEDS ORDERED: KETAMINE 50 MG/ML 10 ML VIAL IVP STA (16:45)
[2021-10-29 16:54] VITALS: RESP 18
[2021-10-29 17:06] VITALS: PULSE 54
--- NOTE | 2021-10-29 17:23 | XR ---
EXAMINATION TYPE: XR Hip Limited LT DATE OF EXAM: 10/29/2021 4:56 PM INDICATION: Patient age:Male; 76 years old; Reason for study: reduction; COMPARISON: Radiograph 10/18/2021. TECHNIQUE: The left hip was examined in the frontal and lateral projections . FINDINGS: There remains good anatomic alignment. No evidence of prosthetic dislocation. Prosthesis is intact. T here there remains a 3.5 x 2.5 cm large chip fracture without displacement of the greater trochanter of the femur, similar to prior imaging. No new fractures are identified. IMPRESSION: No evidence of dislocation. There is similar chip fracture of the greater trochanter of the left femu r which is not significantly changed from 10/26/2021 versus alignment..
[2021-10-29 18:02] VITALS: BP 128/82
== END 2021-10-29 21:43 | disposition home or self-care (01) ==
LOC: EC 15:03
DX: T84.021A Dislocation of internal left hip prosthesis, initial encounter (principal); F03.90 Unspecified dementia, unspecified severity, without behavioral disturbance, psychotic disturbance, mood disturbance, and anxiety; E11.9 Type 2 diabetes mellitus without complications; I10 Essential (primary) hypertension; Z87.891 Personal history of nicotine dependence; K21.9 Gastro-esophageal reflux disease without esophagitis; Z79.83 Long term (current) use of bisphosphonates; Z91.030 Bee allergy status
CPT/HCPCS: 73501; 73502; 27250; 99283; 96374; 96375; 96376; L1830; J1170; J2704

== ENCOUNTER 2021-11-12 23:35 | Emergency (ER) | payer MEDICARE ==
[2021-11-12 23:46] VITALS: TEMP 98
[2021-11-13] MEDS ORDERED: SODIUM CHLORIDE 0.9% 1,000 ML IV STA (00:26)
[2021-11-13] MEDS ORDERED: PROPOFOL 10 MG/ML 20 ML VIAL IV ONE (00:26)
[2021-11-13] MEDS ORDERED: MORPHINE SULFATE 4 MG/ML SYRINGE IV STA (00:26)
--- NOTE | 2021-11-13 00:28 | XR ---
EXAMINATION TYPE: XR Hip Complete LT DATE OF EXAM: 11/12/2021 COMPARISON: NONE HISTORY: Hip dislocation TECHNIQUE: 3 views FINDINGS: There is a lateral superior dislocation of the left prosthetic femoral head. No fracture se en. IMPRESSION: Dislocated hip prosthesis.
--- NOTE | 2021-11-13 00:37 | ED ---
Extremity Problem HPI - General Chief complaint: Extremity Problem,Nontraumatic Stated complaint: Dislocated hip Time Seen by Provider: 11/13/21 00:06 Source: EMS, RN notes reviewed, old records reviewed Mode of arrival: EMS Limitations: no limitations - History of Present Illness Initial comments: This is a 76-year-old male to the ER today for evaluation. Patient coming in with severe left hip pain patient has history of left hip arthroplasty. Hip replacement. Patient has had multiple episodes of that hip being dislocated. Not wearing his brace and appears to have it dislocated again today MD Complaint: extremity pain, extremity swelling, joint swelling -: hour(s) Location: left, lower extremity History of Same: Yes Radiation: proximal Severity scale (1-10): 10 Quality: aching, sharp Consistency: constant Improves with: nothing Worsens with: nothing Associated Symptoms: denies other symptoms - Related Data Home Medications Medication Instructions Recorded Confirmed Fenofibrate 160 mg PO HS 01/06/17 10/29/21 [place]-3 Fatty Acids/Fish Oil [Fish 1 cap PO HS 01/06/17 10/29/21 Oil 1,000 mg Softgel] [place] Fatty Acids/Fish Oil [Fish 2 cap PO DAILY 01/06/17 10/29/21 Oil 1,000 mg Softgel] Cyanocobalamin (Vitamin B-12) 1,000 mcg PO DAILY 12/01/18 10/29/21 [Vitamin B-12] Pyridoxine HCl (Vitamin B6) 100 mg PO DAILY 01/09/21 10/29/21 [Vitamin B-6] Acetaminophen [Tylenol] 650 mg PO Q4H PRN 10/12/21 10/29/21 Darbepoetin [place] [Aranesp] 40 mcg SQ FR 10/12/21 10/29/21 Furosemide [Lasix] 40 mg PO BID 10/12/21 10/29/21 HYDROcodone/APAP 5-325MG [[place] 1 tab PO Q12H PRN 10/12/21 10/29/21 5-325] LORazepam [Ativan] 0.5 mg PO Q6H PRN 10/12/21 10/29/21 Losartan Potassium 100 mg PO HS 10/12/21 10/29/21 Omeprazole 20 mg PO BID 10/12/21 10/29/21 Sertraline [Zoloft] 50 mg PO HS 10/12/21 10/29/21 cloNIDine HCL 0.1 mg PO BID 10/12/21 10/29/21 Cefuroxime Axetil [Ceftin] 500 mg PO BID 10/29/21 10/29/21 Folic Acid 1 mg PO HS 10/29/21 10/29/21 Insulin Glargine,Hum.rec.anlog 12 unit SQ HS 10/29/21 10/29/21 [Basaglar Tatumikpen U-100] Metoprolol Succinate (ER) [Toprol 50 mg PO HS 10/29/21 10/29/21 Xl] Potassium Chloride [Klor-Con 10 ER] 10 meq PO HS 10/29/21 10/29/21 Simvastatin [Zocor] 20 mg PO DAILY 10/29/21 10/29/21 amLODIPine [Norvasc] 5 mg PO HS 10/29/21 10/29/21 Previous Rx's Medication Instructions Recorded Ferrous Sulfate [Iron (65 MG 325 mg PO DAILY #30 tab 09/04/21 Elemental)] Allergies Allergy/AdvReac Type Severity Reaction Status Date / Time bee venom protein (honey bee) Allergy Unknown PASSED OUT Verified 11/12/21 23:46 X2 Review of Systems ROS Statement: Those systems with pertinent positive or pertinent negative responses have been documented in the HPI. ROS Other: All systems not noted in ROS Statement are negative. Past Medical History Past Medical History: Atrial Fibrillation, Coronary Artery Disease (CAD), Cancer, Heart Failure, Dementia, Diabetes Mellitus, Eye Disorder, GERD/Reflux, GI Bleed, Hyperlipidemia, Hypertension, Osteoarthritis (OA), Prostate Disorder, Renal Disease Additional Past Medical History / Comment(s): Pt recently admitted to [facility] on 08/13/21 with subacute L thigh and hip pain 2ndary to a large fluid collection and new low hgb. Other hx: IDDM type II, CKD stage IV, prostate cancer treated with radiation, cardiomyopathy with pacer/AICD, lower GI bleed/diverticular disease/benign colon polyps/gastritis, R eye poor vision d/t injury, R carpal tunnel syndrome History of Any Multi-Drug Resistant Organisms: MRSA Date of last positivie culture/infection: over 10 yrs (2008?) MDRO Source:: Leg Past Surgical History: AICD, Appendectomy, Heart Catheterization, Joint Replacement, Orthopedic Surgery, Pacemaker Additional Past Surgical History / Comment(s): 09/26/20 pacer/AICD at [facility], bilateral total hip arthroplasties, L shoulder surgery to remove a growth, L carpal tunnel release, R eye metal removal, EGD, colonoscopies. Past Anesthesia/Blood Transfusion Reactions: No Reported Reaction Type of Cardiac Device: Permanent Pacemaker, AICD Device Placement Date:: 09/26/20 Past Psychological History: Depression Smoking Status: Former smoker Past Alcohol Use History: None Reported Past Drug Use History: None Reported - Past Family History Mother Family Medical History: Cancer Additional Family Medical History / Comment(s): stomach cancer General Exam - General Exam Comments Initial Comments: GCS 15 Left hip shows deformity General appearance: alert, in no apparent distress Head exam: Present: atraumatic, normocephalic, normal inspection Eye exam: Present: normal appearance, PERRL, EOMI. Absent: scleral icterus, conjunctival injection, periorbital swelling ENT exam: Present: normal exam, mucous membranes moist Neck exam: Present: normal inspection. Absent: tenderness, meningismus, lymphadenopathy Respiratory exam: Present: normal lung sounds bilaterally. Absent: respiratory distress, wheezes, rales, rhonchi, stridor Cardiovascular Exam: Present: regular rate, normal rhythm, normal heart sounds. Absent: systolic murmur, diastolic murmur, rubs, gallop, clicks GI/Abdominal exam: Present: soft, normal bowel sounds. Absent: distended, tenderness, guarding, rebound, rigid Extremities exam: Present: normal inspection, full ROM, normal capillary refill. Absent: tenderness, pedal edema, joint swelling, calf tenderness Back exam: Present: normal inspection Neurological exam: Present: alert, oriented X3, CN II-XII intact Psychiatric exam: Present: normal affect, normal mood Skin exam: Present: warm, dry, intact, normal color. Absent: rash Course Vital Signs 11/12/21 11/13/21 11/13/21 23:40 02:10 02:11 Temperature 98 F Pulse Rate 55 L 54 L 64 Respiratory 19 19 19 Rate Blood Pressure 128/78 118/71 127/83 O2 Sat by Pulse 99 98 100 Oximetry 11/13/21 11/13/21 11/13/21 02:15 02:20 02:25 Temperature Pulse Rate 54 L 61 55 L Respiratory 14 16 17 Rate Blood Pressure 114/70 107/72 109/69 O2 Sat by Pulse 100 100 100 Oximetry 11/13/21 11/13/21 11/13/21 02:30 02:35 02:45 Temperature Pulse Rate 60 60 55 L Respiratory 18 19 18 Rate Blood Pressure 113/66 116/76 137/86 O2 Sat by Pulse 100 100 99 Oximetry 11/13/21 11/13/21 11/13/21 03:00 03:15 03:30 Temperature Pulse Rate 60 65 68 Respiratory 18 17 17 Rate Blood Pressure 130/79 126/69 127/68 O2 Sat by Pulse 99 99 100 Oximetry - Reevaluation(s) Reevaluation #1: 11/13/21 Medical record is reviewed Patient symptoms are improved here in the ER Patient informed results and questions answered Procedures - Orthopedic Joint Reduction Joint #1 Consent Obtained: verbal consent Side: left Joint Reduction Location: hip Analgesia: procedural sedation Technique Used: traction/counter-traction, direct manipulation Post-Reduction Neuro Exam: intact Post-Reduction Vascular Exam: intact Post Reduction X-Ray Obtained: Yes Post Reduction X-Ray Results: reduced Splint Applied: Yes Patient Tolerated Procedure: well - Orthopedic Splinting/Casting Injury #1 Side: left Lower Extremity Injury Location: knee Lower Extremity Immobilizer: knee immobilizer - Procedural Sedation Indications: diagnostic imaging procedure ASA Class: III Mallampati Airway Score: 3 Preparation: selling underwriter applied, pulse oximeter, capnometry used IV Propofol Dose (mgs): 50 Complications: none Interventions: oxygen applied, airway repositioned Patient Tolerated Procedure: well Medical Decision Making - Medical Decision Making 76 male with left hip dislocation, hip is reduced here in the ER patient can be discharged home - Lab Data Result diagrams: 11/13/21 01:01 11/13/21 01:01 Lab Results 11/13/21 11/13/21 Range/Units 01:01 01:01 WBC 8.2 (3.8-10.6) k/uL RBC 4.10 L (4.30-5.90) m/uL Hgb 12.4 L (13.0-17.5) gm/dL Hct 36.9 L (39.0-53.0) % MCV 90.1 (80.0-100.0) fL MCH 30.3 (25.0-35.0) pg MCHC 33.6 (31.0-37.0) g/dL RDW 14.9 (11.5-15.5) % Plt Count 223 (150-450) k/uL MPV 7.8 Neutrophils % 77 % Lymphocytes % 15 % Monocytes % 5 % Eosinophils % 2 % Basophils % 0 % Neutrophils # 6.3 (1.3-7.7) k/uL Lymphocytes # 1.2 (1.0-4.8) k/uL Monocytes # 0.4 (0-1.0) k/uL Eosinophils # 0.1 (0-0.7) k/uL Basophils # 0.0 (0-0.2) k/uL Sodium 136 L (137-145) mmol/L Potassium 3.9 (3.5-5.1) mmol/L Chloride 99 (98-107) mmol/L Carbon Dioxide 28 (22-30) mmol/L Anion Gap 9 mmol/L BUN 54 H (9-20) mg/dL Creatinine 1.93 H (0.66-1.25) mg/dL Est GFR (CKD-EPI)AfAm 38 (>60 ml/min/1.73 sqM) Est GFR (CKD-EPI)NonAf 33 (>60 ml/min/1.73 sqM) Glucose 105 H (74-99) mg/dL Calcium 9.6 (8.4-10.2) mg/dL Phosphorus 3.2 (2.5-4.5) mg/dL Magnesium 2.2 (1.6-2.3) mg/dL Total Bilirubin 0.6 (0.2-1.3) mg/dL AST 39 (17-59) U/L ALT 23 (4-49) U/L Alkaline Phosphatase 42 (38-126) U/L Total Protein 6.5 (6.3-8.2) g/dL Albumin 3.7 (3.5-5.0) g/dL - Radiology Data Radiology results: report reviewed (X-ray left hip shows dislocation second x- ray shows positive relocation), image reviewed Disposition Clinical Impression: S/P total left hip arthroplasty, Hip dislocation, left, Leg pain Disposition: HOME SELF-CARE Condition: Good Instructions (If sedation given, give patient instructions): Moderate Sedation (ED), Hip Dislocation (ED) Is patient prescribed a controlled substance at d/c from ED?: No Referrals: CORRINE RICKETTS MD [Primary Care Provider] - 1-2 days
[2021-11-13 01:11] LABS: Basophils % (A) 0 %; Eosinophils # (A) 0.1 k/uL (0-0.7); Eosinophils % (A) 2 %; HCT 36.9 % (39.0-53.0); HGB 12.4 gm/dL (13.0-17.5); Lymphocytes # (A) 1.2 k/uL (1.0-4.8); Lymphocytes % (A) 15 %; MCH 30.3 pg (25.0-35.0); MCHC 33.6 g/dL (31.0-37.0); MCV 90.1 fL (80.0-100.0); Mean Platelet Volume 7.8; Monocytes # (A) 0.4 k/uL (0-1.0); Monocytes % (A) 5 %; Neutrophils # (A) 6.3 k/uL (1.3-7.7); Neutrophils % (A) 77 %; Platelet Count 223 k/uL (150-450); RDW 14.9 % (11.5-15.5); WBC 8.2 k/uL (3.8-10.6)
[2021-11-13 01:23] LABS: Albumin 3.7 g/dL (3.5-5.0); Calcium 9.6 mg/dL (8.4-10.2); Magnesium 2.2 mg/dL (1.6-2.3); Phosphorus 3.2 mg/dL (2.5-4.5); Potassium 3.9 mmol/L (3.5-5.1); Total Bilirubin 0.6 mg/dL (0.2-1.3); Total Protein 6.5 g/dL (6.3-8.2)
--- NOTE | 2021-11-13 03:06 | XR ---
EXAMINATION TYPE: XR Hip Limited LT DATE OF EXAM: 11/13/2021 COMPARISON: Today HISTORY: Post reduction TECHNIQUE: Single view FINDINGS: There is anatomic position of the left hip joint. No fracture seen. IMPRESSION: Anatomic reduction of the left hip prosthesis.
[2021-11-13 04:49] VITALS: BP 127/68; PULSE 68; RESP 17
== END 2021-11-13 03:40 | disposition home or self-care (01) ==
LOC: EC 23:35
DX: T84.021A Dislocation of internal left hip prosthesis, initial encounter (principal); I10 Essential (primary) hypertension; E11.9 Type 2 diabetes mellitus without complications; K21.9 Gastro-esophageal reflux disease without esophagitis; Z79.1 Long term (current) use of non-steroidal anti-inflammatories (NSAID); Z87.891 Personal history of nicotine dependence; Z91.030 Bee allergy status; Z96.642 Presence of left artificial hip joint
CPT/HCPCS: 99284; 96374; 96361; 36415; 80053; 83735; 84100; 85025; 73501; 73502; 27266; L1830; J2270; J2704; 27250; 96375

== ENCOUNTER 2021-11-19 01:40 | Emergency (ER) | payer MEDICARE ==
--- NOTE | 2021-11-19 02:09 | ED ---
Lower Extremity Injury HPI - General Chief Complaint: Extremity Injury, Lower Stated Complaint: Dislocated Hip Time Seen by Provider: 11/19/21 01:48 Source: patient, EMS Mode of arrival: EMS Limitations: no limitations - History of Present Illness Initial Comments: Patient 76-year-old man his left hip has become dislocated. Patient not able to move his left leg or bearing weight. The patient states that he thinks an x-ray was taken at the facility for transfer here. He is declining analgesic at the moment. No weakness or numbness. MD Complaint: hip injury -: hour(s) Injury: Hip: Left Type of Injury: unknown Place: [facility] Severity scale (1-10): 0 Worsens With: movement Associated Symptoms: unable to bear weight - Related Data Home Medications Medication Instructions Recorded Confirmed Fenofibrate 160 mg PO HS 01/06/17 12/02/21 [place]-3 Fatty Acids/Fish Oil [Fish 2 cap PO DAILY 01/06/17 12/02/21 Oil 1,000 mg Softgel] Cyanocobalamin (Vitamin B-12) 1,000 mcg PO DAILY 12/01/18 12/02/21 [Vitamin B-12] Pyridoxine HCl (Vitamin B6) 100 mg PO DAILY 01/09/21 12/02/21 [Vitamin B-6] Acetaminophen [Tylenol] 650 mg PO Q4H PRN 10/12/21 12/02/21 Darbepoetin Santos [Aranesp] 40 mcg SQ FR 10/12/21 12/02/21 HYDROcodone/APAP 5-325MG [Makinen 1 tab PO Q12H PRN 10/12/21 12/02/21 5-325] Losartan Potassium 100 mg PO HS 10/12/21 12/02/21 Folic Acid 1 mg PO HS 10/29/21 12/02/21 Metoprolol Succinate (ER) [Toprol 50 mg PO HS 10/29/21 12/02/21 XL] Simvastatin [Zocor] 20 mg PO DAILY 10/29/21 12/02/21 amLODIPine [Norvasc] 5 mg PO HS 10/29/21 12/02/21 Insulin Glargine,Hum.rec.anlog 9 unit SQ HS 11/25/21 12/02/21 [Lantus Solostar Pen] Omeprazole 20 mg PO BID 11/25/21 12/02/21 Sertraline [Zoloft] 100 mg PO HS 11/25/21 12/02/21 Previous Rx's Medication Instructions Recorded Ferrous Sulfate [Iron (65 MG 325 mg PO DAILY #30 tab 09/04/21 Elemental)] Cephalexin [Keflex] 500 mg PO Q8HR #90 cap 12/04/21 HYDROcodone/APAP 5-325MG [Makinen 1 tab PO Q6HR PRN 7 Days #28 tab 12/04/21 5-325] Warfarin [Coumadin] 5 mg PO ONCE@1800 tab 12/04/21 cloNIDine HCL [Catapres] 0.1 mg PO DAILY tab 12/04/21 Allergies Allergy/AdvReac Type Severity Reaction Status Date / Time bee venom protein (honey bee) Allergy Unknown PASSED OUT Verified 12/02/21 12:14 X2 Review of Systems ROS Statement: Those systems with pertinent positive or pertinent negative responses have been documented in the HPI. ROS Other: All systems not noted in ROS Statement are negative. Constitutional: Denies: fever Respiratory: Denies: cough, dyspnea Cardiovascular: Denies: chest pain, palpitations, edema Gastrointestinal: Denies: abdominal pain, vomiting Musculoskeletal: Reports: as per HPI, arthralgia Neurological: Denies: headache, weakness, numbness Past Medical History Past Medical History: Atrial Fibrillation, Coronary Artery Disease (CAD), Cancer, Heart Failure, Dementia, Diabetes Mellitus, Eye Disorder, GERD/Reflux, GI Bleed, Hyperlipidemia, Hypertension, Osteoarthritis (OA), Prostate Disorder, Renal Disease Additional Past Medical History / Comment(s): Pt recently admitted to [facility] on 08/13/21 with subacute L thigh and hip pain 2ndary to a large fluid collection and new low hgb. Other hx: IDDM type II, CKD stage IV, prostate cancer treated with radiation, cardiomyopathy with pacer/AICD, lower GI bleed/diverticular disease/benign colon polyps/gastritis, R eye poor vision d/t injury, R carpal tunnel syndrome History of Any Multi-Drug Resistant Organisms: MRSA Date of last positivie culture/infection: over 10 yrs (2008?) MDRO Source:: Leg Past Surgical History: AICD, Appendectomy, Heart Catheterization, Joint Replacem ent, Orthopedic Surgery, Pacemaker Additional Past Surgical History / Comment(s): 09/26/20 pacer/AICD at [facility], bilateral total hip arthroplasties, L shoulder surgery to remove a growth, L carpal tunnel release, R eye metal removal, EGD, colonoscopies. Past Anesthesia/Blood Transfusion Reactions: No Reported Reaction Type of Cardiac Device: Permanent Pacemaker, AICD Device Placement Date:: 09/26/20 Past Psychological History: Depression Smoking Status: Former smoker Past Alcohol Use History: None Reported Past Drug Use History: None Reported - Past Family History Mother Family Medical History: Cancer Additional Family Medical History / Comment(s): stomach cancer General Exam Limitations: no limitations General appearance: alert, in no apparent distress Respiratory exam: Present: normal lung sounds bilaterally. Absent: respiratory distress, wheezes, rales, rhonchi, stridor Cardiovascular Exam: Present: regular rate, normal rhythm, normal heart sounds. Absent: systolic murmur, diastolic murmur, rubs, gallop GI/Abdominal exam: Present: soft. Absent: distended, tenderness, guarding, rebound, rigid, mass Extremities exam: Present: tenderness, normal capillary refill, other (There is shortening and internal rotation of the left leg. Patient does have sensation throughout the foot and the ankle and toes. Resists the left hip.). Absent: full ROM, pedal edema Neurological exam: Present: alert. Absent: motor sensory deficit Skin exam: Present: warm, dry, intact, normal color. Absent: rash Course Vital Signs 11/19/21 11/19/21 11/19/21 01:45 02:52 03:52 Temperature 97.7 F Pulse Rate 52 L 55 L 54 L Respiratory 18 18 18 Rate Blood Pressure 127/80 127/80 130/82 O2 Sat by Pulse 96 100 100 Oximetry 11/19/21 11/19/21 11/19/21 04:35 04:40 04:45 Temperature Pulse Rate 53 L 55 L 55 L Respiratory 20 22 16 Rate Blood Pressure 141/81 121/76 113/69 O2 Sat by Pulse 100 100 100 Oximetry 11/19/21 11/19/21 11/19/21 04:50 04:55 05:00 Temperature Pulse Rate 55 L 54 L 55 L Respiratory 20 16 18 Rate Blood Pressure 109/70 103/72 96/70 O2 Sat by Pulse 100 100 100 Oximetry 11/19/21 11/19/21 11/19/21 05:05 05:10 05:25 Temperature Pulse Rate 54 L 54 L 54 L Respiratory 18 18 18 Rate Blood Pressure 94/60 104/64 113/67 O2 Sat by Pulse 97 97 99 Oximetry 11/19/21 11/19/21 11/19/21 05:40 05:55 07:28 Temperature 97.9 F Pulse Rate 54 L 55 L 55 L Respiratory 18 18 20 Rate Blood Pressure 132/77 139/82 137/78 O2 Sat by Pulse 99 99 99 Oximetry - Reevaluation(s) Reevaluation #1: 11/19/21 02:07 Patient declined analgesia initial history and physical. Procedures - Orthopedic Joint Reduction Joint #1 Consent Obtained: verbal consent Side: left Joint Reduction Location: hip Analgesia: procedural sedation Technique Used: traction/counter-traction Post-Reduction Neuro Exam: intact Post-Reduction Vascular Exam: intact Post Reduction X-Ray Obtained: Yes Post Reduction X-Ray Results: reduced Splint Applied: Yes Patient Tolerated Procedure: well, no complications - Procedural Sedation Indications: fracture/dislocation reduction ASA Class: III Mallampati Airway Score: 3 Preparation: satellite project site monitor applied, pulse oximeter, capnometry used, supplemental O2 applied, suction/airway equipment at bedside, IV secured IV Propofol Dose (mgs): 200 Complications: none Patient Tolerated Procedure: no complications Additional Comments: IV propofol given in aliquots of 20-30 mg per dose total of 200 mg was given over the procedure. Medical Decision Making - Medical Decision Making Patient 76-year-old man with left hip dislocation. The patient underwent's procedural sedation and then had closed reduction of the left hip. On awakening, patient stated that he was feeling much better he stated that the pain in his hip was gone. Patient does have established follow-up with orthopedics and therefore will discharge to keep this appointment. Disposition Clinical Impression: Hip dislocation, left Disposition: HOME SELF-CARE Condition: Good Instructions (If sedation given, give patient instructions): Moderate Sedation (ED), Hip Dislocation (ED) Is patient prescribed a controlled substance at d/c from ED?: No Referrals: Ginna Martin DO [Primary Care Provider] - 1-2 days
--- NOTE | 2021-11-19 02:25 | XR ---
EXAMINATION TYPE: XR Hip LT and AP Pelvis DATE OF EXAM: 11/19/2021 COMPARISON: 11/13/2021 HISTORY: Dislocation TECHNIQUE: 3 views FINDINGS: There is bilateral hip prosthesis. There is a posterior dislocation of the left prosthetic femoral head. No fracture seen. IMPRESSION: Dislocated left hip prosthesis.
[2021-11-19] MEDS ORDERED: PROPOFOL 10 MG/ML 20 ML VIAL IV ONE ×2 (03:36→04:40)
--- NOTE | 2021-11-19 05:24 | XR ---
EXAMINATION TYPE: XR Hip Limited LT DATE OF EXAM: 11/19/2021 COMPARISON: Today HISTORY: Post reduction TECHNIQUE: Single view FINDINGS: There is persistent posterior superior dislocation of the prosthetic femoral head. IMPRESSION: Persistent dislocation. No fracture seen.
--- NOTE | 2021-11-19 05:25 | XR ---
EXAMINATION TYPE: XR Hip Limited LT DATE OF EXAM: 11/19/2021 COMPARISON: Today HISTORY: Post reduction TECHNIQUE: Single view FINDINGS: There is anatomic position of the prosthetic femoral head. No acute fracture seen. There is old ununited chip fracture of the greater trochanter. IMPRESSION: Anatomic reduction. No complicating process seen.
[2021-11-19 06:16] VITALS: PULSE 55
[2021-11-19 07:30] VITALS: BP 137/78; RESP 20; TEMP 97.9
== END 2021-11-19 07:30 | disposition home or self-care (01) ==
LOC: SUPCPDRO 01:40 → EC 01:40
DX: T84.021A Dislocation of internal left hip prosthesis, initial encounter (principal); E11.9 Type 2 diabetes mellitus without complications; I10 Essential (primary) hypertension; F03.90 Unspecified dementia, unspecified severity, without behavioral disturbance, psychotic disturbance, mood disturbance, and anxiety; Z87.891 Personal history of nicotine dependence; Z91.030 Bee allergy status
CPT/HCPCS: 99283 ×2; 27250 ×2; 73501; 73502; J2704

== ENCOUNTER 2021-11-22 02:01 | Emergency (ER) | payer MEDICARE ==
[2021-11-22] MEDS ORDERED: SODIUM CHLORIDE 0.9% 1,000 ML IV STA (02:24)
[2021-11-22] MEDS ORDERED: PROPOFOL 10 MG/ML 20 ML VIAL IV ONE (02:24)
--- NOTE | 2021-11-22 02:28 | ED ---
Extremity Problem HPI - General Chief complaint: Extremity Problem,Nontraumatic Stated complaint: Hip Pain Time Seen by Provider: 11/22/21 02:10 Source: EMS, RN notes reviewed, old records reviewed Mode of arrival: EMS Limitations: no limitations - History of Present Illness Initial comments: This is a 76-year-old male to the emergency room today. Patient presents today for evaluation regards to severe left hip pain. She does not wear his left hip brace. Patient has re-dislocation of left hip any presents to ER with dislocation. MD Complaint: extremity pain, extremity swelling, joint swelling, joint pain, other (Left hip pain) Location: left, lower extremity History of Same: Yes -: Yes arthralgia Radiation: proximal Severity scale (1-10): 4 Quality: stabbing Consistency: constant Improves with: nothing Worsens with: nothing Associated Symptoms: denies other symptoms - Related Data Home Medications Medication Instructions Recorded Confirmed Fenofibrate 160 mg PO HS 01/06/17 10/29/21 [place]-3 Fatty Acids/Fish Oil [Fish 1 cap PO HS 01/06/17 10/29/21 Oil 1,000 mg Softgel] [place]-3 Fatty Acids/Fish Oil [Fish 2 cap PO DAILY 01/06/17 10/29/21 Oil 1,000 mg Softgel] Cyanocobalamin (Vitamin B-12) 1,000 mcg PO DAILY 12/01/18 10/29/21 [Vitamin B-12] Pyridoxine HCl (Vitamin B6) 100 mg PO DAILY 01/09/21 10/29/21 [Vitamin B-6] Acetaminophen [Tylenol] 650 mg PO Q4H PRN 10/12/21 10/29/21 Darbepoetin Santos [Aranesp] 40 mcg SQ FR 10/12/21 10/29/21 Furosemide [Lasix] 40 mg PO BID 10/12/21 10/29/21 HYDROcodone/APAP 5-325MG [[place] 1 tab PO Q12H PRN 10/12/21 10/29/21 5-325] LORazepam [Ativan] 0.5 mg PO Q6H PRN 10/12/21 10/29/21 Losartan Potassium 100 mg PO HS 10/12/21 10/29/21 Omeprazole 20 mg PO BID 10/12/21 10/29/21 Sertraline [Zoloft] 50 mg PO HS 10/12/21 10/29/21 cloNIDine HCL 0.1 mg PO BID 10/12/21 10/29/21 Cefuroxime Axetil [Ceftin] 500 mg PO BID 10/29/21 10/29/21 Folic Acid 1 mg PO HS 10/29/21 10/29/21 Insulin Glargine,Hum.rec.anlog 12 unit SQ HS 10/29/21 10/29/21 [Basaglar Kwikpen U-100] Metoprolol Succinate (ER) [Toprol 50 mg PO HS 10/29/21 10/29/21 Xl] Potassium Chloride [Klor-Con 10 ER] 10 meq PO HS 10/29/21 10/29/21 Simvastatin [Zocor] 20 mg PO DAILY 10/29/21 10/29/21 amLODIPine [Norvasc] 5 mg PO HS 10/29/21 10/29/21 Previous Rx's Medication Instructions Recorded Ferrous Sulfate [Iron (65 MG 325 mg PO DAILY #30 tab 09/04/21 Elemental)] Allergies Allergy/AdvReac Type Severity Reaction Status Date / Time bee venom protein (honey bee) Allergy Unknown PASSED OUT Verified 11/22/21 02:10 X2 Review of Systems ROS Statement: Those systems with pertinent positive or pertinent negative responses have been documented in the HPI. ROS Other: All systems not noted in ROS Statement are negative. Past Medical History Past Medical History: Atrial Fibrillation, Coronary Artery Disease (CAD), Cancer, Heart Failure, Dementia, Diabetes Mellitus, Eye Disorder, GERD/Reflux, GI Bleed, Hyperlipidemia, Hypertension, Osteoarthritis (OA), Prostate Disorder, Renal Disease Additional Past Medical History / Comment(s): Pt recently admitted to [facility] on 08/13/21 with subacute L thigh and hip pain 2ndary to a large fluid collection and new low hgb. Other hx: IDDM type II, CKD stage IV, prostate cancer treated with radiation, cardiomyopathy with pacer/AICD, lower GI bleed/diverticular disease/benign colon polyps/gastritis, R eye poor vision d/t injury, R carpal tunnel syndrome History of Any Multi-Drug Resistant Organisms: MRSA Date of last positivie culture/infection: over 10 yrs (2008?) MDRO Source:: Leg Past Surgical History: AICD, Appendectomy, Heart Catheterization, Joint Replacement, Orthopedic Surgery, Pacemaker Additional Past Surgical History / Comment(s): 09/26/20 pacer/AICD at [facility], bilateral total hip arthroplasties, L shoulder surgery to remove a growth, L carpal tunnel release, R eye metal removal, EGD, colonoscopies. Past Anesthesia/Blood Transfusion Reactions: No Reported Reaction Type of Cardiac Device: Permanent Pacemaker, AICD Device Placement Date:: 09/26/20 Past Psychological History: Depression Smoking Status: Former smoker Past Alcohol Use History: None Reported Past Drug Use History: None Reported - Past Family History Mother Family Medical History: Cancer Additional Family Medical History / Comment(s): stomach cancer General Exam Limitations: no limitations General appearance: alert, in no apparent distress Head exam: Present: atraumatic, normocephalic, normal inspection Eye exam: Present: normal appearance, PERRL, EOMI. Absent: scleral icterus, conjunctival injection, periorbital swelling ENT exam: Present: normal exam, mucous membranes moist Neck exam: Present: normal inspection. Absent: tenderness, meningismus, lymphadenopathy Respiratory exam: Present: normal lung sounds bilaterally. Absent: respiratory distress, wheezes, rales, rhonchi, stridor Cardiovascular Exam: Present: regular rate, normal rhythm, normal heart sounds. Absent: systolic murmur, diastolic murmur, rubs, gallop, clicks GI/Abdominal exam: Present: soft, normal bowel sounds. Absent: distended, tenderness, guarding, rebound, rigid Extremities exam: Present: tenderness, normal capillary refill, other (Left leg pain). Absent: full ROM, pedal edema, joint swelling, calf tenderness Back exam: Present: normal inspection Neurological exam: Present: alert, oriented X3, CN II-XII intact Psychiatric exam: Present: normal affect, normal mood Skin exam: Present: warm, dry, intact, normal color. Absent: rash Course Vital Signs 11/22/21 11/22/21 11/22/21 02:08 03:15 03:20 Temperature 97.8 F Pulse Rate 55 L 85 55 L Respiratory 18 18 16 Rate Blood Pressure 159/94 159/101 154/86 O2 Sat by Pulse 100 100 100 Oximetry - Reevaluation(s) Reevaluation #1: 11/22/21 02:25 Medical record is reviewed Reevaluation #2: 11/22/21 02:25 Patient now requiring anything currently for pain Procedures - Orthopedic Joint Reduction Joint #1 Consent Obtained: verbal consent Side: right Joint Reduction Location: hip Analgesia: procedural sedation Technique Used: traction/counter-traction, direct manipulation Post-Reduction Neuro Exam: intact Post-Reduction Vascular Exam: intact Post Reduction X-Ray Obtained: Yes Post Reduction X-Ray Results: reduced Splint Applied: Yes Patient Tolerated Procedure: well - Procedural Sedation Procedural Sedation Start Time: 03:00 Procedural Sedation Stop Time: 03:35 ASA Class: III Mallampati Airway Score: 3 Preparation: panel monitor applied, pulse oximeter, capnometry used IV Propofol Dose (mgs): 70 Complications: none Interventions: oxygen applied Patient Tolerated Procedure: well Medical Decision Making - Medical Decision Making 76 male to the emergency department and present with recurrent left hip dislocation, it is relocated here in the ER placed in immobilizer patient tolerated procedure sedation well awake and alert and can be discharged Facility - Radiology Data Radiology results: report reviewed (X-ray left knee shows significant dislocation, repeat x-ray shows positive relocation), image reviewed Disposition Clinical Impression: Hip dislocation, left, S/P total left hip arthroplasty Disposition: HOME SELF-CARE Condition: Fair Instructions (If sedation given, give patient instructions): Moderate Sedation (ED), Hip Dislocation (ED) Is patient prescribed a controlled substance at d/c from ED?: No Referrals: Ginna Martin DO [Primary Care Provider] - 1-2 days Lon Hancock DO [Doctor of Osteopathic Medicine] - 1-2 days
--- NOTE | 2021-11-22 02:54 | XR ---
EXAMINATION TYPE: XR Hip Complete LT DATE OF EXAM: 11/22/2021 COMPARISON: 11/19/2021 HISTORY: Pain TECHNIQUE: 2 views FINDINGS: There is dislocated left hip prosthesis. Prosthetic femoral head appears posterior and late ral. No fracture seen. IMPRESSION: Dislocated hip prosthesis. No fracture seen.
[2021-11-22 03:30] VITALS: RESP 18
--- NOTE | 2021-11-22 03:36 | XR ---
EXAMINATION TYPE: XR Hip Limited LT DATE OF EXAM: 11/22/2021 COMPARISON: Today HISTORY: Post reduction TECHNIQUE: Single view FINDINGS: There is anatomic position of the prosthetic femoral head. There is a 4 cm chip fracture of the great er trochanter of the femur not changed in position compared to 11/19/2021 exam. Left hemipelvis is int act. IMPRESSION: Anatomic reduction.
[2021-11-22 03:57] VITALS: BP 140/75
[2021-11-22 06:25] VITALS: PULSE 58; TEMP 97.9
== END 2021-11-22 06:25 | disposition home or self-care (01) ==
LOC: EC 02:01
DX: T84.021A Dislocation of internal left hip prosthesis, initial encounter (principal); I10 Essential (primary) hypertension; E11.9 Type 2 diabetes mellitus without complications; F03.90 Unspecified dementia, unspecified severity, without behavioral disturbance, psychotic disturbance, mood disturbance, and anxiety; Z87.891 Personal history of nicotine dependence; K21.9 Gastro-esophageal reflux disease without esophagitis; Z79.83 Long term (current) use of bisphosphonates; Z91.030 Bee allergy status
CPT/HCPCS: 27250; 99283; 96360; 73501; 73502; L1830; J2704

== ENCOUNTER 2021-11-24 12:00 | Emergency (ER) | payer MEDICARE ==
[2021-11-24 12:06] VITALS: RESP 18; TEMP 98.8
--- NOTE | 2021-11-24 12:26 | ED ---
General Adult HPI - General Chief complaint: Extremity Injury, Lower Stated complaint: Hip issues Time Seen by Provider: 11/24/21 12:18 Source: patient, family, EMS, RN notes reviewed Mode of arrival: EMS Limitations: no limitations - History of Present Illness Initial comments: Patient is a pleasant 76-year-old male presenting to the emergency department with concerns for dislocated hip. Patient has had similar episode occur multiple times over the past month or 2. There was report patient was getting up from using the restroom however patient states he was in bed and does sat up. Patient states he does not have a brace however states he does have does not use it much. Patient is scheduled for surgery December 02. No other areas of injury or concern. Discomfort is not present when not moving at this time. Patient does want any pain medication. - Related Data Home Medications Medication Instructions Recorded Confirmed Fenofibrate 160 mg PO HS 01/06/17 11/24/21 [place]-3 Fatty Acids/Fish Oil [Fish 2 cap PO DAILY 01/06/17 11/24/21 Oil 1,000 mg Softgel] Cyanocobalamin (Vitamin B-12) 1,000 mcg PO DAILY 12/01/18 11/24/21 [Vitamin B-12] Pyridoxine HCl (Vitamin B6) 100 mg PO DAILY 01/09/21 11/24/21 [Vitamin B-6] Acetaminophen [Tylenol] 650 mg PO Q4H PRN 10/12/21 11/24/21 Darbepoetin Santos [Aranesp] 40 mcg SQ FR 10/12/21 11/24/21 Furosemide [Lasix] 40 mg PO BID 10/12/21 11/24/21 HYDROcodone/APAP 5-325MG [[place] 1 tab PO Q12H PRN 10/12/21 11/24/21 5-325] Losartan Potassium 100 mg PO HS 10/12/21 11/24/21 cloNIDine HCL 0.1 mg PO BID 10/12/21 11/24/21 Cefuroxime Axetil [Ceftin] 500 mg PO BID 10/29/21 11/24/21 Folic Acid 1 mg PO HS 10/29/21 11/24/21 Insulin Glargine,Hum.rec.anlog 12 unit SQ HS 10/29/21 11/24/21 [Basaglar Darcypen U-100] Metoprolol Succinate (ER) [Toprol 50 mg PO HS 10/29/21 11/24/21 Xl] Potassium Chloride [Klor-Con 10 ER] 10 meq PO HS 10/29/21 11/24/21 Simvastatin [Zocor] 20 mg PO DAILY 10/29/21 11/24/21 amLODIPine [Norvasc] 5 mg PO HS 10/29/21 11/24/21 Omeprazole Magnesium [PriLOSEC OTC] 20 mg PO BID 11/24/21 11/24/21 Sertraline [Zoloft] 100 mg PO HS 11/24/21 11/24/21 Previous Rx's Medication Instructions Recorded Ferrous Sulfate [Iron (65 MG 325 mg PO DAILY #30 tab 09/04/21 Elemental)] Allergies Allergy/AdvReac Type Severity Reaction Status Date / Time bee venom protein (honey bee) Allergy Unknown PASSED OUT Verified 11/24/21 13:09 X2 Review of Systems ROS Statement: Those systems with pertinent positive or pertinent negative responses have been documented in the HPI. ROS Other: All systems not noted in ROS Statement are negative. Constitutional: Denies: fever Eyes: Denies: eye pain ENT: Denies: ear pain Respiratory: Denies: cough Cardiovascular: Denies: chest pain Endocrine: Denies: fatigue Gastrointestinal: Denies: abdominal pain Genitourinary: Denies: dysuria Musculoskeletal: Reports: as per HPI Skin: Denies: rash Neurological: Denies: headache Past Medical History Past Medical History: Atrial Fibrillation, Coronary Artery Disease (CAD), Cancer, Heart Failure, Dementia, Diabetes Mellitus, Eye Disorder, GERD/Reflux, GI Bleed, Hyperlipidemia, Hypertension, Osteoarthritis (OA), Prostate Disorder, Renal Disease Additional Past Medical History / Comment(s): Pt recently admitted to [facility] on 08/13/21 with subacute L thigh and hip pain 2ndary to a large fluid collection and new low hgb. Other hx: IDDM type II, CKD stage IV, prostate cancer treated with radiation, cardiomyopathy with pacer/AICD, lower GI bleed/diverticular disease/benign colon polyps/gastritis, R eye poor vision d/t injury, R carpal t unnel syndrome History of Any Multi-Drug Resistant Organisms: MRSA Date of last positivie culture/infection: over 10 yrs (2008?) MDRO Source:: Leg Past Surgical History: AICD, Appendectomy, Heart Catheterization, Joint Replacement, Orthopedic Surgery, Pacemaker Additional Past Surgical History / Comment(s): 09/26/20 pacer/AICD at [facility], bilateral total hip arthroplasties, L shoulder surgery to remove a growth, L carpal tunnel release, R eye metal removal, EGD, colonoscopies. Past Anesthesia/Blood Transfusion Reactions: No Reported Reaction Type of Cardiac Device: Permanent Pacemaker, AICD Device Placement Date:: 09/26/20 Past Psychological History: No Psychological Hx Reported, Depression Smoking Status: Former smoker Past Alcohol Use History: None Reported Past Drug Use History: None Reported - Past Family History Mother Family Medical History: Cancer Additional Family Medical History / Comment(s): stomach cancer General Exam Limitations: no limitations General appearance: alert, in no apparent distress Head exam: Present: normocephalic Eye exam: Present: normal appearance, PERRL Neck exam: Present: normal inspection Respiratory exam: Present: normal lung sounds bilaterally Cardiovascular Exam: Present: regular rate, normal rhythm Expanded Peripheral pulses: 2+: Posterior Tibialis (L), Dorsalis Pedis (L) GI/Abdominal exam: Present: soft. Absent: tenderness, guarding Extremities exam: Present: tenderness (Mild tenderness with suspected dislocation left hip. Distally the extremity is neurovascular intact.) Neurological exam: Present: alert. Absent: motor sensory deficit Psychiatric exam: Present: normal affect, normal mood Skin exam: Present: normal color Course Vital Signs 11/24/21 11/24/21 11/24/21 12:01 14:10 14:17 Temperature 98.8 F Pulse Rate 52 L 54 L 54 L Respiratory 18 18 18 Rate Blood Pressure 152/87 124/88 145/87 O2 Sat by Pulse 98 100 100 Oximetry 11/24/21 11/24/21 11/24/21 14:20 14:25 14:30 Temperature Pulse Rate 54 L 57 L 55 L Respiratory 18 18 18 Rate Blood Pressure 111/76 99/69 93/68 O2 Sat by Pulse 100 100 100 Oximetry - Reevaluation(s) Reevaluation #1: 11/24/21 14:54 Repeat x-ray shows reduction of previous dislocated femoral prosthesis. Stable greater trochanteric acute fracture. Procedures - Orthopedic Joint Reduction Joint #1 Consent Obtained: verbal consent, written consent Side: left Joint Reduction Location: hip Analgesia: procedural sedation Shoulder Technique Used (if applicable): other ( Jacques technique) Post Reduction X-Ray Obtained: Yes Post Reduction X-Ray Results: reduced Patient Tolerated Procedure: well, no complications - Procedural Sedation Procedural Sedation Start Time: 14:20 Procedural Sedation Stop Time: 14:50 Indications: fracture/dislocation reduction ASA Class: III Mallampati Airway Score: 3 Preparation: patient monitor applied, pulse oximeter, supplemental O2 applied IV Propofol Dose (mgs): 90 Complications: none Patient Tolerated Procedure: well, no complications Medical Decision Making - Medical Decision Making Patient reevaluated several times. Patient is slightly drowsy however easily arousable to voice and maintaining airway. Case was earlier discussed with Dr. Alberts who did not feel patient needed any different care other than reduction. They are unable to schedule surgery anytime sooner. Disposition Clinical Impression: Hip dislocation, left Disposition: HOME SELF-CARE Condition: Stable Instructions (If sedation given, give patient instructions): Moderate Sedation (ED), Hip Dislocation (ED) Additional Instructions: Please were your brace at all times. Please follow-up with your orthopedic doctor as soon as possible and have surgery done as scheduled. Return for hip pain, dislocation or worsening symptoms. Is patient prescribed a controlled substance at d/c from ED?: No Referrals: Ginna Martin DO [Primary Care Provider] - 1-2 days Tunde Rabago MD [Medical Doctor] - 1-2 days Time of Disposition: 15:00
--- NOTE | 2021-11-24 13:24 | XR ---
EXAMINATION TYPE: XR Hip LT and AP Pelvis DATE OF EXAM: 11/24/2021 COMPARISON: 11/19/2021 HISTORY: Dislocation fall, pain TECHNIQUE: AP pelvis and 2 views left hip FINDINGS: Bilateral hip prostheses are present. The left femoral prosthetic head is dislocated from the acetabular component. No acute fracture withi n the [id number] is evident. Normal bowel gas is present. Symphysis pubis sacroiliac joints are normal. This is compared to 11/19/2021. The dislocation appears similar. IMPRESSION: 1. Dislocation of the left femoral prosthesis from the acetabular component.
[2021-11-24] MEDS ORDERED: PROPOFOL 10 MG/ML 20 ML VIAL IV ONE (13:44)
[2021-11-24 14:33] VITALS: PULSE 55
--- NOTE | 2021-11-24 14:46 | XR ---
EXAMINATION TYPE: XR Hip Limited LT DATE OF EXAM: 11/24/2021 COMPARISON: 11/22/2021, 10/12/2021, 08/29/2021 HISTORY: Post reduction TECHNIQUE: AP view right hip FINDINGS: Femoral head appears to articulate with the acetabulum. There is lucency through the greater trochanter which is a change from September 19. Subacute fracture through this area appears to be present. IMPRESSION: 1. Reduction of previous dislocated femoral prosthesis head from the acetabular component. 2. Stable greater trochanteric subacute fracture.
[2021-11-24 16:51] VITALS: BP 120/85
== END 2021-11-24 17:45 | disposition home or self-care (01) ==
LOC: EC 12:00
DX: S73.005A Unspecified dislocation of left hip, initial encounter (principal); K21.9 Gastro-esophageal reflux disease without esophagitis; Z79.1 Long term (current) use of non-steroidal anti-inflammatories (NSAID); E11.9 Type 2 diabetes mellitus without complications; I10 Essential (primary) hypertension; F03.90 Unspecified dementia, unspecified severity, without behavioral disturbance, psychotic disturbance, mood disturbance, and anxiety; Z87.891 Personal history of nicotine dependence; Z91.030 Bee allergy status; Y92.002 Bathroom of unspecified non-institutional (private) residence as the place of occurrence of the external cause
CPT/HCPCS: 27250 ×2; 99283 ×2; 73501; 73502; J2704

== ENCOUNTER → 2021-11-25 | Outpatient (CLI) | payer MEDICARE ==
[2021-11-25 12:51] LABS: Partial Thromboplastin Time 23.6 sec (22.0-30.0); Prothrombin Time 11.3 sec (9.0-12.0)
[2021-11-25 18:26] LABS: HGB 11.6 g/dL (13.0-17.0); MCH 28.4 pg (27.0-32.0); MCHC 30.5 g/dL (32.0-37.0); MCV 93.1 fL (80.0-97.0); Mean Platelet Volume 10.7 fL (9.5-12.2); NRBC Per 100 WBC 0 /100 WBCS (0.0-0.0); Platelet Count 279 X 10*3/uL (140-440); RBC 4.08 X 10*6/uL (4.40-5.60); RDW 15.1 % (11.5-14.5); WBC 5.69 X 10*3/uL (4.50-10.00)
[2021-11-25 20:32] LABS: African American GFR (CKD) 41.2 (60.0-200.0); Albumin 3.8 g/dL (3.8-4.9); Albumin/Globulin Ratio 1.27 (1.60-3.17); Anion Gap 15.8 mmol/L (10.00-18.00); BUN/Creat Ratio 22.61 Ratio (12.00-20.00); Blood Urea Nitrogen 40.7 mg/dL (9.0-27.0); Calcium 9.5 mg/dL (8.7-10.3); Carbon Dioxide 24.2 mmol/L (20.0-27.5); Non-African American GFR(CKD) 35.5 (60.0-200.0); Potassium 3.8 mmol/L (3.5-5.5); Total Bilirubin 0.3 mg/dL (0.30-1.20); Total Protein 6.8 g/dL (6.2-8.2)
== END | disposition home or self-care (01) ==
LOC: LABPAT 11:04
PROVIDERS: ATTEND Orthopaedic Surgery
DX: Z01.812 Encounter for preprocedural laboratory examination (principal)
CPT/HCPCS: 80053; 85027; 85610; 85730; 87070

== ENCOUNTER 2022-04-02 22:31 | Inpatient (IN) | payer MEDICARE ==
[2022-04-02 23:14] LABS: HCT 34.6 % (39.0-53.0); HGB 11.3 gm/dL (13.0-17.5); Hypochromasia Slight; MCH 29.4 pg (25.0-35.0); MCHC 32.6 g/dL (31.0-37.0); MCV 90.3 fL (80.0-100.0); Mean Platelet Volume 7.8; Platelet Count 223 k/uL (150-450); RBC 3.83 m/uL (4.30-5.90); RDW 15.1 % (11.5-15.5)
--- NOTE | 2022-04-02 23:16 | ED ---
General Adult HPI - General Stated complaint: NSTEMI Time Seen by Provider: 04/02/22 22:38 Source: patient, EMS Mode of arrival: EMS Limitations: no limitations - History of Present Illness Initial comments: This patient is 76-year-old man who was transferred here from outside hospital. Patient had gone there earlier today after he had experienced shortness of breath. At the other hospital the patient was found to have elevation of the high sensitivity troponin. Patient had been started on IV heparin and transferred here. On arrival here, the patient states that he is not having chest pain. The patient denies dyspnea stating that the shortness of breath has improved. Patient denies complaints -: hour(s) Severity scale (1-10): 0 Consistency: now resolved Improves with: none Worsens with: none Associated Symptoms: shortness of breath Treatments Prior to Arrival: none - Related Data Home Medications Medication Instructions Recorded Confirmed Fenofibrate 160 mg PO MOWEFR 01/06/17 04/03/22 [place]-3 Fatty Acids/Fish Oil [Fish 2 cap PO DAILY 01/06/17 04/03/22 Oil 1,000 mg Softgel] Cyanocobalamin (Vitamin B-12) 1,000 mcg PO DAILY 12/01/18 04/03/22 [Vitamin B-12] Pyridoxine HCl (Vitamin B6) 100 mg PO DAILY 01/09/21 04/03/22 [Vitamin B-6] Losartan Potassium 100 mg PO HS 10/12/21 04/03/22 Folic Acid 1 mg PO HS 10/29/21 04/03/22 Insulin Glargine,Hum.rec.anlog 7 unit SQ HS 11/25/21 04/03/22 [Lantus Solostar Pen] Omeprazole 20 mg PO BID 11/25/21 04/03/22 Sertraline [Zoloft] 100 mg PO HS 11/25/21 04/03/22 Atorvastatin [Lipitor] 10 mg PO HS 04/03/22 04/03/22 Cholecalciferol [Vitamin D3 (25 25 mcg PO DAILY 04/03/22 04/03/22 Mcg = 1000 Iu)] Lactulose 20 gm PO DAILY 04/03/22 04/03/22 amLODIPine [Norvasc] 10 mg PO DAILY 04/03/22 04/03/22 Previous Rx's Medication Instructions Recorded Ferrous Sulfate [Iron (65 MG 325 mg PO DAILY #30 tab 09/04/21 Elemental)] Apixaban [Eliquis] 5 mg PO BID tab 04/08/22 Aspirin 81 mg PO DAILY tab 04/08/22 Budesonide [Pulmicort] 0.5 mg INHALATION RT-BID ml 04/08/22 Furosemide [Lasix] 40 mg PO BID@0900,1600 tab 04/08/22 INSULIN ASPART (NovoLOG) [NovoLOG 0 unit SQ ACHS each 04/08/22 (formulary)] hydrALAZINE HCL [Apresoline] 50 mg PO BID tab 04/08/22 methylPREDNISolone Dose Pack 4 mg PO DIRECTED 6 Days #1 04/08/22 [Medrol Dose Pack] packet Amoxic-Pot Clav 875-125Mg 1 each PO Q12HR 7 Days #14 tab 04/09/22 [Augmentin 875-125] Allergies Allergy/AdvReac Type Severity Reaction Status Date / Time bee venom protein (honey bee) Allergy Unknown PASSED OUT Verified 04/03/22 11:57 X2 Review of Systems ROS Statement: Those systems with pertinent positive or pertinent negative responses have been documented in the HPI. ROS Other: All systems not noted in ROS Statement are negative. Constitutional: Denies: fever, chills Respiratory: Reports: as per HPI, dyspnea. Denies: cough, wheezes Cardiovascular: Denies: chest pain, palpitations, dyspnea on exertion Gastrointestinal: Denies: abdominal pain, nausea, vomiting, diarrhea Genitourinary: Denies: dysuria, hematuria Musculoskeletal: Denies: back pain Skin: Denies: rash Neurological: Denies: headache, weakness, numbness Psychiatric: Denies: anxiety Past Medical History Past Medical History: Atrial Fibrillation, Coronary Artery Disease (CAD), Cancer, Heart Failure, Dementia, Diabetes Mellitus, Eye Disorder, GERD/Reflux, GI Bleed, Hyperlipidemia, Hypertension, Osteoarthritis (OA), Prostate Disorder, Renal Disease Additional Past Medical History / Comment(s): Pt recently admitted to [facility] on 08/13/21 with subacute L thigh and hip pain 2ndary to a large fluid collection and new low hgb. Other hx: IDDM type II, CKD stage IV, prostate cancer treated with radiation, cardiomyopathy with pacer/AICD, lower GI bleed/diverticular disease/benign colon polyps/gastritis, R eye poor vision d/t injury, R carpal tunnel syndrome History of Any Multi-Drug Resistant Organisms: MRSA Date of last positivie culture/infection: over 10 yrs (2008?) MDRO Source:: Leg Past Surgical History: AICD, Appendectomy, Heart Catheterization, Joint Replacement, Orthopedic Surgery, Pacemaker Additional Past Surgical History / Comment(s): 09/26/20 pacer/AICD at [facility], bilateral total hip arthroplasties, L shoulder surgery to remove a kelly wth, L carpal tunnel release, R eye metal removal, EGD, colonoscopies. Past Anesthesia/Blood Transfusion Reactions: No Reported Reaction Type of Cardiac Device: Permanent Pacemaker, AICD Device Placement Date:: 09/26/20 Past Psychological History: No Psychological Hx Reported, Depression Smoking Status: Former smoker Past Alcohol Use History: None Reported Past Drug Use History: None Reported - Past Family History Mother Family Medical History: Cancer Additional Family Medical History / Comment(s): stomach cancer General Exam General appearance: alert Head exam: Present: atraumatic, normocephalic Eye exam: Present: normal appearance Neck exam: Present: normal inspection Respiratory exam: Present: normal lung sounds bilaterally. Absent: respiratory distress, wheezes, rales, rhonchi, stridor Cardiovascular Exam: Present: regular rate, normal rhythm, normal heart sounds. Absent: systolic murmur, diastolic murmur, rubs, gallop GI/Abdominal exam: Present: soft. Absent: distended, tenderness, guarding, rebound, mass Extremities exam: Present: normal inspection, normal capillary refill. Absent: pedal edema, calf tenderness Back exam: Present: normal inspection. Absent: CVA tenderness (R), CVA tenderness (L) Neurological exam: Present: alert Skin exam: Present: warm, dry, intact, normal color. Absent: rash Course Vital Signs 04/02/22 04/03/22 04/03/22 22:50 01:06 05:20 Pulse Rate 54 L 54 L 53 L Respiratory 20 20 26 H Rate Blood Pressure 145/87 140/91 155/87 O2 Sat by Pulse 96 96 94 L Oximetry 04/03/22 04/03/22 04/03/22 07:15 07:26 13:04 Pulse Rate 58 L 53 L 54 L Respiratory 20 21 26 H Rate Blood Pressure 150/86 150/86 166/93 O2 Sat by Pulse 100 92 L 96 Oximetry EKG Findings - EKG Comments: EKG Findings:: Patient's has paced rhythm at 57 bpm. - EKG Results: EKG: interpreted by TIFFANIE Medical Decision Making - Lab Data Result diagrams: 04/06/22 08:09 04/09/22 07:45 Lab Results 04/02/22 04/02/22 04/02/22 Range/Units 22:56 22:56 22:56 WBC 8.0 (3.8-10.6) k/uL RBC 3.83 L (4.30-5.90) m/uL Hgb 11.3 L (13.0-17.5) gm/dL Hct 34.6 L (39.0-53.0) % MCV 90.3 (80.0-100.0) fL MCH 29.4 (25.0-35.0) pg MCHC 32.6 (31.0-37.0) g/dL RDW 15.1 (11.5-15.5) % Plt Count 223 (150-450) k/uL MPV 7.8 Neutrophils % (Manual) 43 % Band Neuts % (Manual) 41 % Lymphocytes % (Manual) 7 % Monocytes % (Manual) 9 % Neutrophils # (Manual) 6.70 (1.3-7.7) k/uL Lymphocytes # (Manual) 0.56 L (1.0-4.8) k/uL Monocytes # (Manual) 0.72 (0-1.0) k/uL Nucleated RBCs 0 (0-0) /100 WBC Manual Slide Review Performed Toxic Granulation Present Hypochromasia Slight Ovalocytes Present PT 12.7 H (9.0-12.0) sec INR 1.2 H (<1.2) APTT 31.4 H (22.0-30.0) sec Sodium 140 (137-145) mmol/L Potassium 4.1 (3.5-5.1) mmol/L Chloride 108 H (98-107) mmol/L Carbon Dioxide 25 (22-30) mmol/L Anion Gap 7 mmol/L BUN 51 H (9-20) mg/dL Creatinine 1.76 H (0.66-1.25) mg/dL Est GFR (CKD-EPI)AfAm 42 (>60 ml/min/1.73 sqM) Est GFR (CKD-EPI)NonAf 37 (>60 ml/min/1.73 sqM) Glucose 112 H (74-99) mg/dL Calcium 8.8 (8.4-10.2) mg/dL Magnesium 2.0 (1.6-2.3) mg/dL Total Bilirubin 0.4 (0.2-1.3) mg/dL AST 75 H (17-59) U/L ALT 41 (4-49) U/L Alkaline Phosphatase 50 (38-126) U/L Troponin I (0.000-0.034) ng/mL Total Protein 5.7 L (6.3-8.2) g/dL Albumin 3.1 L (3.5-5.0) g/dL 04/02/22 Range/Units 22:56 WBC (3.8-10.6) k/uL RBC (4.30-5.90) m/uL Hgb (13.0-17.5) gm/dL Hct (39.0-53.0) % MCV (80.0-100.0) fL MCH (25.0-35.0) pg MCHC (31.0-37.0) g/dL RDW (11.5-15.5) % Plt Count (150-450) k/uL MPV Neutrophils % (Manual) % Band Neuts % (Manual) % Lymphocytes % (Manual) % Monocytes % (Manual) % Neutrophils # (Manual) (1.3-7.7) k/uL Lymphocytes # (Manual) (1.0-4.8) k/uL Monocytes # (Manual) (0-1.0) k/uL Nucleated RBCs (0-0) /100 WBC Manual Slide Review Toxic Granulation Hypochromasia Ovalocytes PT (9.0-12.0) sec INR (<1.2) APTT (22.0-30.0) sec Sodium (137-145) mmol/L Potassium (3.5-5.1) mmol/L Chloride (98-107) mmol/L Carbon Dioxide (22-30) mmol/L Anion Gap mmol/L BUN (9-20) mg/dL Creatinine (0.66-1.25) mg/dL Est GFR (CKD-EPI)AfAm (>60 ml/min/1.73 sqM) Est GFR (CKD-EPI)NonAf (>60 ml/min/1.73 sqM) Glucose (74-99) mg/dL Calcium (8.4-10.2) mg/dL Magnesium (1.6-2.3) mg/dL Total Bilirubin (0.2-1.3) mg/dL AST (17-59) U/L ALT (4-49) U/L Alkaline Phosphatase (38-126) U/L Troponin I 0.350 H* (0.000-0.034) ng/mL Total Protein (6.3-8.2) g/dL Albumin (3.5-5.0) g/dL Disposition Clinical Impression: NSTEMI (non-ST elevated myocardial infarction) Disposition: ADMITTED IP TO THIS HOSP Condition: Fair Is patient prescribed a controlled substance at d/c from ED?: No
[2022-04-02 23:21] LABS: Albumin 3.1 g/dL (3.5-5.0); Calcium 8.8 mg/dL (8.4-10.2); INR 1.2 (<1.2); Partial Thromboplastin Time 31.4 sec (22.0-30.0); Potassium 4.1 mmol/L (3.5-5.1); Prothrombin Time 12.7 sec (9.0-12.0); Total Bilirubin 0.4 mg/dL (0.2-1.3); Total Protein 5.7 g/dL (6.3-8.2)
[2022-04-02 23:59] LABS: Band Neutrophils % 41 %; Lymphocytes # (M) 0.56 k/uL (1.0-4.8); Monocytes # (M) 0.72 k/uL (0-1.0); Neutrophils % (M) 43 %; Nucleated Red Blood Cells 0 /100 WBC (0-0); Ovalocytes Present; Total Cells Counted 200; Toxic Granulation Present
[2022-04-03] MEDS ORDERED: NITROGLYCERIN SL TABS 0.4 MG TAB SUBLINGUAL PRN (00:14)
[2022-04-03] MEDS: HEPARIN SOD,PORK IN 0.45% NACL 25,000 UNIT in 0.45% NACL 1 250ML.BAG IV SCH (01:02)
[2022-04-03] MEDS: SODIUM CHLORIDE 0.9% 1,000 ML IV SCH (01:03)
--- NOTE | 2022-04-03 11:59 | P.HPIM ---
History of Present Illness Patient is a 76-year-old male was transferred from [facility] after he presented there with the complaints of shortness of breath, orthopnea. 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 Patient denied any fever chills. Patient chest x-ray is consistent with pulmonary edema. Patient had an echocardiogram which showed normal ejection fraction the past patient does have history of atrial fibrillation. Patient appears to be in congestive heart failure patient denied any chest pain. Patient is presently on IV heparin cardiology evaluated the patient. REVIEW OF SYSTEMS: CONSTITUTIONAL: No fever, no malaise, no fatigue. HEENT: No recent visual problems or hearing problems. Denied any sore throat. CARDIOVASCULAR: No chest pain, no palpitations, no syncope. PULMONARY: no cough, no hemoptysis. GASTROINTESTINAL: No diarrhea, no nausea, no vomiting, no abdominal pain. NEUROLOGICAL: No headaches, no weakness, no numbness. HEMATOLOGICAL: Denies any bleeding or petechiae. GENITOURINARY: Denies any burning micturition, frequency, or urgency. MUSCULOSKELETAL/RHEUMATOLOGICAL: Denies any joint pain, swelling, or any muscle pain. ENDOCRINE: Denies any polyuria or polydipsia. The rest of the 14-point review of systems is negative. PHYSICAL EXAMINATION: GENERAL: The patient is alert and oriented x3, not in any acute distress. Well developed, well nourished. HEENT: Pupils are round and equally reacting to light. EOMI. No scleral icterus. No conjunctival pallor. Normocephalic, atraumatic. No pharyngeal erythema. No thyromegaly. CARDIOVASCULAR: S1 and S2 present. No murmurs, rubs, or gallops. Elevated JVD PULMONARY: Chest is clear to auscultation, no wheezing or crackles. ABDOMEN: Soft, nontender, nondistended, normoactive bowel sounds. No palpable organomegaly. MUSCULOSKELETAL: No joint swelling or deformity. EXTREMITIES: No cyanosis, clubbing, bilateral pitting pedal edema 1+ NEUROLOGICAL: Gross neurological examination did not reveal any focal deficits. SKIN: No rashes. Assessment and plan -Shortness of breath: Probably secondary to new-onset congestive heart failure patient may have a chronic diastolic dysfunction with acute exacerbation. Patient was started on 40 mg IV Lasix twice a day. Cardiology evaluated the patient. -Troponin elevation secondary to end-stage renal disease and heart failure -Chronic kidney disease stage III baseline creatinine is around 1.8 present creatinine is 1.76 patient may have a competent of 5 acute kidney injury secondary to prerenal of congestive heart failure and patient has diabetic nephropathy. -Coronary artery disease Gases reflux disease -Hyperlipidemia -Hypertension Abdomen benign prostatic hypertrophy -History of atrial fibrillation currently sinus rhythm paced rhythm patient has an AICD. Patient underwent a correlation with Coumadin which will be continued patient's INR is subtherapeutic -Depression DVT prophylaxis: On Coumadin although subtherapeutic Past Medical History Past Medical History: Atrial Fibrillation, Coronary Artery Disease (CAD), Cancer, Heart Failure, Dementia, Diabetes Mellitus, Eye Disorder, GERD/Reflux, GI Bleed, Hyperlipidemia, Hypertension, Osteoarthritis (OA), Prostate Disorder, Renal Disease Additional Past Medical History / Comment(s): Pt recently admitted to [facility] on 08/13/21 with subacute L thigh and hip pain 2ndary to a large fluid collection and new low hgb. Other hx: IDDM type II, CKD stage IV, prostate cancer treated with radiation, cardiomyopathy with pacer/AICD, lower GI bleed/diverticular disease/benign colon polyps/gastritis, R eye poor vision d/t injury, R carpal tunnel syndrome History of Any Multi-Drug Resistant Organisms: MRSA Date of last positivie culture/infection: over 10 yrs (2008?) MDRO Source:: Leg Past Surgical History: AICD, Appendectomy, Heart Catheterization, Joint Replacement, Orthopedic Surgery, Pacemaker Additional Past Surgical History / Comment(s): 09/26/20 pacer/AICD at [facility], bilateral total hip arthroplasties, L shoulder surgery to remove a growth, L carpal tunnel release, R eye metal removal, EGD, colonoscopies. Past Anesthesia/Blood Transfusion Reactions: No Reported Reaction Type of Cardiac Device: Permanent Pacemaker, AICD Device Placement Date:: 09/26/20 Past Psychological History: No Psychological Hx Reported, Depression Smoking Status: Former smoker Past Alcohol Use History: None Reported Past Drug Use History: None Reported - Past Family History Mother Family Medical History: Cancer Additional Family Medical History / Comment(s): stomach cancer Medications and Allergies Home Medications Medication Instructions Recorded Confirmed Type Fenofibrate 160 mg PO HS 01/06/17 12/02/21 History [place]-3 Fatty Acids/Fish Oil [Fish 2 cap PO DAILY 01/06/17 12/02/21 History Oil 1,000 mg Softgel] Cyanocobalamin (Vitamin B-12) 1,000 mcg PO DAILY 12/01/18 12/02/21 History [Vitamin B-12] Pyridoxine HCl (Vitamin B6) 100 mg PO DAILY 01/09/21 12/02/21 History [Vitamin B-6] Ferrous Sulfate [Iron (65 MG 325 mg PO DAILY #30 tab 09/04/21 12/02/21 Rx Elemental)] Acetaminophen [Tylenol] 650 mg PO Q4H PRN 10/12/21 12/02/21 History Darbepoetin Santos [Aranesp] 40 mcg SQ FR 10/12/21 12/02/21 History HYDROcodone/APAP 5-325MG [[place] 1 tab PO Q12H PRN 10/12/21 12/02/21 History 5-325] Losartan Potassium 100 mg PO HS 10/12/21 12/02/21 History Folic Acid 1 mg PO HS 10/29/21 12/02/21 History Metoprolol Succinate (ER) [Toprol 50 mg PO HS 10/29/21 12/02/21 History XL] Simvastatin [Zocor] 20 mg PO DAILY 10/29/21 12/02/21 History amLODIPine [Norvasc] 5 mg PO HS 10/29/21 12/02/21 History Insulin Glargine,Hum.rec.anlog 9 unit SQ HS 11/25/21 12/02/21 History [Lantus Solostar Pen] Omeprazole 20 mg PO BID 11/25/21 12/02/21 History Sertraline [Zoloft] 100 mg PO HS 11/25/21 12/02/21 History Cephalexin [Keflex] 500 mg PO Q8HR #90 cap 12/04/21 Rx HYDROcodone/APAP 5-325MG [[place] 1 tab PO Q6HR PRN 7 Days #28 tab 12/04/21 Rx 5-325] Warfarin [Coumadin] 5 mg PO ONCE@1800 tab 12/04/21 Rx cloNIDine HCL [Catapres] 0.1 mg PO DAILY tab 12/04/21 Rx Allergies Allergy/AdvReac Type Severity Reaction Status Date / Time bee venom protein (honey bee) Allergy Unknown PASSED OUT Verified 04/03/22 11:57 X2 Physical Exam Vitals: Vital Signs Pulse Resp BP Pulse Ox 04/03/22 07:26 53 L 21 150/86 92 L 04/03/22 05:20 53 L 26 H 155/87 94 L 04/03/22 01:06 54 L 20 140/91 96 04/02/22 22:50 54 L 20 145/87 96 Intake and Output 04/02/22 04/03/22 04/03/22 22:59 06:59 14:59 Other: Weight 90.718 kg Results CBC & Chem 7: 04/02/22 22:56 04/02/22 22:56 Labs: Abnormal Lab Results - Last 24 Hours (Table) 04/02/22 04/02/22 04/02/22 Range/Units 22:56 22:56 22:56 RBC 3.83 L (4.30-5.90) m/uL Hgb 11.3 L (13.0-17.5) gm/dL Hct 34.6 L (39.0-53.0) % Lymphocytes # (Manual) 0.56 L (1.0-4.8) k/uL PT 12.7 H (9.0-12.0) sec INR 1.2 H (<1.2) APTT 31.4 H (22.0-30.0) sec Chloride 108 H (98-107) mmol/L BUN 51 H (9-20) mg/dL Creatinine 1.76 H (0.66-1.25) mg/dL Glucose 112 H (74-99) mg/dL AST 75 H (17-59) U/L Troponin I (0.000-0.034) ng/mL Total Protein 5.7 L (6.3-8.2) g/dL Albumin 3.1 L (3.5-5.0) g/dL 04/02/22 04/03/22 04/03/22 Range/Units 22:56 01:24 06:49 RBC (4.30-5.90) m/uL Hgb (13.0-17.5) gm/dL Hct (39.0-53.0) % Lymphocytes # (Manual) (1.0-4.8) k/uL PT (9.0-12.0) sec INR (<1.2) APTT (22.0-30.0) sec Chloride (98-107) mmol/L BUN (9-20) mg/dL Creatinine (0.66-1.25) mg/dL Glucose (74-99) mg/dL AST (17-59) U/L Troponin I 0.350 H* 0.379 H* 0.332 H* (0.000-0.034) ng/mL Total Protein (6.3-8.2) g/dL Albumin (3.5-5.0) g/dL
[2022-04-03] MEDS: FUROSEMIDE 10 MG/ML 4 ML VIAL IV SCH ×2 (16:26→20:46)
--- NOTE | 2022-04-03 16:35 | P.CRDCN ---
History of Present Illness Consult date: 04/03/22 Chief complaint: Shortness of breath History of present illness: The patient is a 76-year-old gentleman who is a poor historian where the history was taken from the was bedside. He does have a past medical history significant for heart failure with preserved ejection fraction, history of cardiomyopathy and status post AICD, permanent atrial fibrillation, as well as chronic kidney disease. According to his he has not been feeling well for the last few days where he was experiencing increasing in the shortness of breath with exertion. No symptoms of chest pain or chest discomfort. No fever and no chills. No cough or sputum production. For the last 24 hours his shortness of breath has progressed and he was unable to lay flat in bed. He also developed mild bilateral lower extremities edema. For that reason he was brought to the emergency department. He underwent a workup including EKG showed underlying atrial fibrillation with ventricular paced rhythm. Chest x-ray was not performed. NT proBNP came in to be elevated around 18,000. Subsequent the patient was admitted to the hospital he was started on IV Lasix. He stated that since he was started on IV Lasix his shortness of breath as well as lower extremity edema have improved. The patient had an echocardiogram in 2020 and that revealed normal left ventricular systolic function was hypertensive heart disease and mild valvular abnormalities. His hemoglobin during this admission is 11.3. His GFR is 51. He is known to have chronic kidney disease and that is his baseline. Past Medical History Past Medical History: Atrial Fibrillation, Coronary Artery Disease (CAD), Cancer, Heart Failure, Dementia, Diabetes Mellitus, Eye Disorder, GERD/Reflux, GI Bleed, Hyperlipidemia, Hypertension, Osteoarthritis (OA), Prostate Disorder, Renal Disease Additional Past Medical History / Comment(s): Pt recently admitted to [facility] on 08/13/21 with subacute L thigh and hip pain 2ndary to a large fluid collection and new low hgb. Other hx: IDDM type II, CKD stage IV, prostate cancer treated with radiation, cardiomyopathy with pacer/AICD, lower GI bleed/diverticular disease/benign colon polyps/gastritis, R eye poor vision d/t injury, R carpal tunnel syndrome History of Any Multi-Drug Resistant Organisms: MRSA Date of last positivie culture/infection: over 10 yrs (2008?) MDRO Source:: Leg Past Surgical History: AICD, Appendectomy, Heart Catheterization, Joint Replacement, Orthopedic Surgery, Pacemaker Additional Past Surgical History / Comment(s): 09/26/20 pacer/AICD at [facility], bilateral total hip arthroplasties, L shoulder surgery to remove a growth, L carpal tunnel release, R eye metal removal, EGD, colonoscopies. Past Anesthesia/Blood Transfusion Reactions: No Reported Reaction Type of Cardiac Device: Permanent Pacemaker, AICD Device Placement Date:: 09/26/20 Smoking Status: Former smoker - Past Family History Mother Family Medical History: Cancer Additional Family Medical History / Comment(s): stomach cancer Medications and Allergies Home Medications Medication Instructions Recorded Confirmed Type Fenofibrate 160 mg PO MOWEFR 01/06/17 04/03/22 History [place]-3 Fatty Acids/Fish Oil [Fish 2 cap PO DAILY 01/06/17 04/03/22 History Oil 1,000 mg Softgel] Cyanocobalamin (Vitamin B-12) 1,000 mcg PO DAILY 12/01/18 04/03/22 History [Vitamin B-12] Pyridoxine HCl (Vitamin B6) 100 mg PO DAILY 01/09/21 04/03/22 History [Vitamin B-6] Ferrous Sulfate [Iron (65 MG 325 mg PO DAILY #30 tab 09/04/21 04/03/22 Rx Elemental)] Losartan Potassium 100 mg PO HS 10/12/21 04/03/22 History Folic Acid 1 mg PO HS 10/29/21 04/03/22 History Metoprolol Succinate (ER) [Toprol 50 mg PO HS 10/29/21 04/03/22 History XL] Insulin Glargine,Hum.rec.anlog 7 unit SQ HS 11/25/21 04/03/22 History [Lantus Solostar Pen] Omeprazole 20 mg PO BID 11/25/21 04/03/22 History Sertraline [Zoloft] 100 mg PO HS 11/25/21 04/03/22 History Cephalexin [Keflex] 500 mg PO Q8HR #90 cap 12/04/21 04/03/22 Rx Atorvastatin [Lipitor] 10 mg PO HS 04/03/22 04/03/22 History Cholecalciferol [Vitamin D3 (25 25 mcg PO DAILY 04/03/22 04/03/22 History Mcg = 1000 Iu)] HYDROcodone/APAP 5-325MG [[place] 1 tab PO Q8H PRN 04/03/22 04/03/22 History 5-325] Lactulose 20 gm PO DAILY 04/03/22 04/03/22 History amLODIPine [Norvasc] 10 mg PO DAILY 04/03/22 04/03/22 History cloNIDine HCL [Catapres] 0.1 mg PO BID 04/03/22 04/03/22 History Allergies Allergy/AdvReac Type Severity Reaction Status Date / Time bee venom protein (honey bee) Allergy Unknown PASSED OUT Verified 04/03/22 11:57 X2 Physical Exam Vitals: Vital Signs Temp Pulse Pulse Resp BP BP Pulse Ox 04/03/22 15:10 98.2 F 56 L 20 180/91 96 04/03/22 13:04 54 L 26 H 166/93 96 04/03/22 07:26 53 L 21 150/86 92 L 04/03/22 07:15 58 L 20 150/86 100 04/03/22 05:20 53 L 26 H 155/87 94 L 04/03/22 01:06 54 L 20 140/91 96 04/02/22 22:50 54 L 20 145/87 96 Intake and Output 04/03/22 04/03/22 04/03/22 06:59 14:59 22:59 Other: Voiding Method Urinal Diaper Weight 90.718 kg - Constitutional General appearance: no acute distress - Respiratory Respiratory: bilateral: diminished - Cardiovascular Rhythm: irregularly irregular Heart sounds: normal: S1, S2 Abnormal Heart Sounds: systolic murmur Results 04/02/22 22:56 04/02/22 22:56 Cardiac Enzymes 04/02/22 04/02/22 04/03/22 Range/Units 22:56 22:56 01:24 AST 75 H (17-59) U/L Troponin I 0.350 H* 0.379 H* (0.000-0.034) ng/mL 04/03/22 Range/Units 06:49 AST (17-59) U/L Troponin I 0.332 H* (0.000-0.034) ng/mL Coagulation 04/02/22 Range/Units 22:56 PT 12.7 H (9.0-12.0) sec APTT 31.4 H (22.0-30.0) sec CBC 04/02/22 Range/Units 22:56 WBC 8.0 (3.8-10.6) k/uL RBC 3.83 L (4.30-5.90) m/uL Hgb 11.3 L (13.0-17.5) gm/dL Hct 34.6 L (39.0-53.0) % Plt Count 223 (150-450) k/uL Comprehensive Metabolic Panel 04/02/22 Range/Units 22:56 Sodium 140 (137-145) mmol/L Potassium 4.1 (3.5-5.1) mmol/L Chloride 108 H (98-107) mmol/L Carbon Dioxide 25 (22-30) mmol/L BUN 51 H (9-20) mg/dL Creatinine 1.76 H (0.66-1.25) mg/dL Glucose 112 H (74-99) mg/dL Calcium 8.8 (8.4-10.2) mg/dL AST 75 H (17-59) U/L ALT 41 (4-49) U/L Alkaline Phosphatase 50 (38-126) U/L Total Protein 5.7 L (6.3-8.2) g/dL Albumin 3.1 L (3.5-5.0) g/dL Current Medications Generic Name Dose Route Start Last Admin Trade Name Freq PRN Reason Stop Dose Admin Aspirin 325 mg 04/04/22 09:00 Aspirin 325 Mg Tab PO DAILY IGGY Furosemide 40 mg 04/03/22 21:00 04/03/22 16:26 Furosemide 10 Mg/Ml 4 Ml Vial IV 40 mg Q12HR IGGY Administration Sodium Chloride 1,000 mls @ 20 mls/hr 04/03/22 00:15 04/03/22 01:03 Saline 0.9% IV 20 mls/hr .Q24H IGGY Administration Heparin Sodium/Sodium Chloride 250 mls @ 10.006 mls/hr 04/03/22 00:15 04/03/22 01:02 25,000 unit/ Sodium Chloride IV 11.03 units/kg/hr .Q24H IGGY 10.006 mls/hr Administration Protocol 11.03 UNITS/KG/HR Nitroglycerin 0.4 mg 04/03/22 00:14 Nitroglycerin Sl Tabs 0.4 Mg Tab SUBLINGUAL Q5M PRN Chest Pain Intake and Output 04/03/22 04/03/22 04/03/22 06:59 14:59 22:59 Other: Voiding Method Urinal Diaper Weight 90.718 kg Patient Weight 04/04/22 06:59 Weight 90.718 kg 04/02/22 22:56 04/02/22 22:56 Assessment and Plan Assessment: Assessment #1 shortness of breath likely to be multi-factorial #2 heart failure with preserved ejection fraction exacerbation was evidence of right and left heart failure #3 hypertensive heart disease #4 permanent atrial fibrillation #5 permanent pacemaker #6 chronic kidney disease Plan #1 agree about keeping the patient on the current dose of Lasix IV #2 monitor the kidney function and electrolytes #3 restart the patient on the home medication including amlodipine 10 mg by mouth daily #4 restart the patient on losartan with the home dose of 100 mg by mouth daily #5 verify why the patient is not on oral anticoagulation as an outpatient for the A. fib #6 follow-up with the patient
[2022-04-03 16:46] LABS: Glucose,Whole Blood 93 mg/dL (70-110)
[2022-04-03] MEDS ORDERED: HYDROcodone/APAP 5-325MG 1 EACH TAB PO PRN (18:45)
[2022-04-03] MEDS ORDERED: DEXTROSE 50% SYRINGE 50 ML IVP PRN ×2 (18:49)
[2022-04-03] MEDS: HEPARIN SODIUM 1,000 UN/ML (10ML VL) IV PRN (19:02)
[2022-04-03 20:07] LABS: Glucose,Whole Blood 130 mg/dL (70-110)
[2022-04-03] MEDS: INSULIN ASPART (NovoLOG) 100 UNIT/ML VIAL SQ SCH (20:17)
[2022-04-03] MEDS: ATORVASTATIN 10 MG TAB PO SCH (20:46)
[2022-04-03] MEDS: SERTRALINE 100 MG TAB PO SCH (20:46)
[2022-04-03] MEDS: FOLIC ACID 1 MG TAB PO SCH (20:46)
[2022-04-03 22:29] LABS: INR 1.1 (<1.2); Prothrombin Time 11.4 sec (9.0-12.0)
[2022-04-04] MEDS: SODIUM CHLORIDE 0.9% 1,000 ML IV SCH (01:28)
[2022-04-04] MEDS: HEPARIN SOD,PORK IN 0.45% NACL 25,000 UNIT in 0.45% NACL 1 250ML.BAG IV SCH ×2 (02:50→08:59)
[2022-04-04 05:53] LABS: Glucose,Whole Blood 153 mg/dL (70-110)
[2022-04-04] MEDS: INSULIN ASPART (NovoLOG) 100 UNIT/ML VIAL SQ SCH ×4 (06:00→20:47)
--- NOTE | 2022-04-04 06:32 | P.PN ---
Subjective Progress Note Date: 04/04/22 Principal diagnosis: Heart failure with preserved ejection fraction The patient is a pleasant 76-year-old gentleman with a past medical history significant for heart failure was with the ejection fraction, history of cardiomyopathy and status post AICD, permanent atrial fibrillation, and chronic kidney disease as well as multiple comorbid conditions was admitted to the hospital with increasing shortness of breath and bilateral lower extremity edema was diagnosed with heart failure. He is known to have heart failure with preserved ejection fraction in the past. The patient was seen this morning. He is feeling better. He still congested. On examination he continues to have bilateral rhonchi. The edema has improved significantly. His pressure continues to be elevated. He is on max dose of amlodipine and also losartan. I'm going to add hydralazine to the current medical regimen. He reports no pain in the chest and no dizziness or lightheadedness and no feeling of heart racing or fluttering. For some reason he is not on any oral anticoagulation according to him and his he possibly had history of GI bleeding. Further clarification to be performed. He is somewhat poor historian. Objective - Vital Signs Vital signs: Vital Signs Temp 98.3 F 04/04/22 00:00 Pulse 68 04/04/22 04:00 Resp 20 04/04/22 04:00 BP 161/82 04/04/22 04:00 Pulse Ox 92 L 04/04/22 04:00 FiO2 Intake & Output 04/03/22 04/03/22 04/04/22 06:59 18:59 06:59 Intake Total 239.774 71.226 Output Total 650 2950 Balance -410.226 -2878.774 Weight 90.718 kg 90.718 kg 68 kg Intake: Intake, IV Titration 239.774 71.226 Amount Heparin Sod,Pork in 0.45% 199.774 71.226 NaCl 25,000 unit In 0.45 % NaCl 1 250ml.bag @ 11. 03 UNITS/KG/HR 10.006 mls /hr IV .Q24H IGGY Rx#: [id number] Sodium Chloride 0.9% 1, 40 000 ml @ 20 mls/hr IV . Q24H IGGY Rx#:[id number] Output: Urine 650 2950 Other: Voiding Method External Catheter External Catheter - Constitutional General appearance: Present: no acute distress - Respiratory Respiratory: bilateral: rales - Cardiovascular Rhythm: irregularly irregular Heart sounds: normal: S1, S2 Abnormal Heart Sounds: Present: systolic murmur - Labs CBC & Chem 7: 04/02/22 22:56 04/02/22 22:56 Labs: Abnormal Lab Results - Last 24 Hours (Table) 04/03/22 04/03/22 04/04/22 Range/Units 06:49 20:05 00:58 APTT 31.7 H (22.0-30.0) sec POC Glucose (mg/dL) 130 H (70-110) mg/dL Troponin I 0.332 H* (0.000-0.034) ng/mL 04/04/22 Range/Units 05:51 APTT (22.0-30.0) sec POC Glucose (mg/dL) 153 H (70-110) mg/dL Troponin I (0.000-0.034) ng/mL Assessment and Plan Assessment: Assessment #1 shortness of breath likely to be multi-factorial #2 heart failure with preserved ejection fraction exacerbation was evidence of right and left heart failure #3 hypertensive heart disease #4 permanent atrial fibrillation #5 permanent pacemaker #6 chronic kidney disease Plan #1 continue the current dose of Lasix IV. The patient continues to be hyperkalemic #2 monitor the kidney function and electrolytes #3 continue the current dose of losartan as well as amlodipine. Add hydralazine to the current medical regimen #4 verify why the patient is not on oral anticoagulation as an outpatient for the A. fib #5 follow-up with the patient
[2022-04-04] MEDS: PANTOPRAZOLE 40 MG TABLET PO SCH (06:47)
[2022-04-04] MEDS: hydrALAZINE HCL 25 MG TAB PO SCH ×2 (08:49→20:46)
[2022-04-04] MEDS: amLODIPine 10 MG TAB PO SCH (08:49)
[2022-04-04] MEDS: CHOLECALCIFEROL 25 MCG (1000 IU) TABLET PO SCH (08:49)
[2022-04-04] MEDS: FERROUS SULFATE 325 MG TAB PO SCH (08:49)
[2022-04-04] MEDS: CYANOCOBALAMIN 500 MCG TAB PO SCH (08:49)
[2022-04-04] MEDS: ASPIRIN 325 MG TAB PO SCH (08:49)
[2022-04-04] MEDS: LOSARTAN 50 MG TAB PO SCH (08:50)
[2022-04-04] MEDS: FUROSEMIDE 10 MG/ML 4 ML VIAL IV SCH ×2 (08:50→20:47)
[2022-04-04 09:47] LABS: Basophils % (A) 0 %; Eosinophils # (A) 0.2 k/uL (0-0.7); Eosinophils % (A) 4 %; HCT 35.1 % (39.0-53.0); Hypochromasia Slight; Lymphocytes # (A) 0.3 k/uL (1.0-4.8); Lymphocytes % (A) 6 %; MCH 28.4 pg (25.0-35.0); MCHC 31.4 g/dL (31.0-37.0); MCV 90.5 fL (80.0-100.0); Mean Platelet Volume 7.9; Monocytes # (A) 0.5 k/uL (0-1.0); Monocytes % (A) 8 %; Neutrophils # (A) 4.9 k/uL (1.3-7.7); Neutrophils % (A) 81 %; Platelet Count 218 k/uL (150-450); RBC 3.88 m/uL (4.30-5.90); RDW 14.6 % (11.5-15.5)
[2022-04-04 10:13] LABS: African American GFR (CKD) 49 (>60 ml/min/1.73 sqM); Anion Gap 7 mmol/L; Blood Urea Nitrogen 46 mg/dL (9-20); Calcium 8.5 mg/dL (8.4-10.2); Carbon Dioxide 28 mmol/L (22-30); Chloride 102 mmol/L (98-107); Glucose 187 mg/dL (74-99); Non-African American GFR(CKD) 42 (>60 ml/min/1.73 sqM); Potassium 3.8 mmol/L (3.5-5.1); Sodium 137 mmol/L (137-145)
[2022-04-04 11:28] LABS: Glucose,Whole Blood 157 mg/dL (70-110)
[2022-04-04] MEDS: HEPARIN SODIUM 1,000 UN/ML (10ML VL) IV PRN (12:06)
--- NOTE | 2022-04-04 13:29 | P.PN ---
Subjective Progress Note Date: 04/04/22 Patient is a 76-year-old male was transferred from [facility] after he presented there with the complaints of shortness of breath, orthopnea. 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 Patient denied any fever chills. Patient chest x-ray is consistent with pulmonary edema. Patient had an echocardiogram which showed normal ejection fraction the past patient does have history of atrial fibrillation. Patient appears to be in congestive heart failure patient denied any chest pain. Patient is presently on IV heparin cardiology evaluated the patient. 04/04/2022 Patient is seen and evaluated in follow-up this morning with cardiology following closely. Patient was maintained on IV Lasix and cardiology re commending to continue at this time. No new labs from this morning and last documented kidney function was elevated will repeat labs this morning which are pending. Patient is currently on room air at 92% and blood pressure is elevated. Hydralazine being added by cardiology. This patient does have history of atrial fibrillation and is not on any anticoagulation in the outpatient setting and being investigated further by cardiology. Patient is 97% on room air and denies worsening shortness of breath. Patient and at the bedside report not eating very much and patient is fatigued. Patient reportedly lives at [facility] and plan is to return there once stabilized discharge. Labs came back and hemoglobin is 11.0, sodium is 137, potassium 3.8, BUN 46 and creatinine mildly improved at 1.57. Patient is also currently continued on IV heparin per cardiology. Echo and repeat labs in the morning. Review of systems: Constitutional: reports of fatigue, no reports of fever, or chills Cardiovascular: No reports of chest pain or palpitations Respiratory: No reports of shortness of breath or cough GI: No reports of nausea, vomiting, or diarrhea, reports not much of an appetite : No reports of dysuria or retention Neurovascular: reports of generalized weakness and at the bedside reports patient is wheelchair-bound All medications have been reviewed PHYSICAL EXAMINATION: GENERAL: The patient is alert and oriented x3, not in any acute distress. Well developed, well nourished. HEENT: Pupils are round and equally reacting to light. EOMI. No scleral icterus. No conjunctival pallor. Normocephalic, atraumatic. No pharyngeal erythema. No thyromegaly. CARDIOVASCULAR: S1 and S2 present. No murmurs, rubs, or gallops. Elevated JVD PULMONARY: Chest is clear to auscultation, no wheezing or crackles. ABDOMEN: Soft, nontender, nondistended, normoactive bowel sounds. No palpable organomegaly. MUSCULOSKELETAL: No joint swelling or deformity. EXTREMITIES: No cyanosis, clubbing, bilateral pitting pedal edema 1+ NEUROLOGICAL: Gross neurological examination did not reveal any focal deficits. Diffusely weak SKIN: No rashes. Assessment: -Shortness of breath: secondary to acute on chronic diastolic dysfunction with acute exacerbation. Patient was started on 40 mg IV Lasix twice a day. Cardiology following the patient. -Troponin elevation secondary to end-stage renal disease and heart failure -Chronic kidney disease stage III baseline creatinine is around 1.8 , also a component of acute kidney injury secondary to prerenal of congestive heart failure and patient has diabetic nephropathy. -Coronary artery disease -Insulin-dependent diabetes mellitus type 2 -Gastroesophageal reflux disease -Hyperlipidemia -Hypertension -benign prostatic hypertrophy -History of atrial fibrillation currently sinus rhythm paced rhythm patient has an AICD. -Depression -DVT prophylaxis: IV heparin Plan: Cardiology following and recommended continuing IV Lasix at current dose. Recommend repeat labs today his kidney functions were elevated, creatinine trending down at 1.57 and sodium is 137 with a potassium 3.8 Patient is insulin-dependent diabetic and recommend continue Accu-Cheks before meals and at bedtime along with sliding scale Patient is continued on IV heparin per cardiology and investigating further about anticoagulation as patient is not maintained on this in the outpatient setting, questionable to GI bleed previously. The impression and plan of care has been dictated by Naz Chand, Nurse Practitioner as directed. MD Imelda I have performed a history and examination and MDM of this patient, discussed the same with the dictator, and agree with the dictator's assessment and plan as written ,documented as a scribe. Based on total visit time, I have performed more than 50% of the visit. Objective - Vital Signs Vital signs: Vital Signs Temp 98.3 F 04/04/22 00:00 Pulse 68 04/04/22 04:00 Resp 20 04/04/22 04:00 BP 161/82 04/04/22 04:00 Pulse Ox 92 L 04/04/22 04:00 FiO2 Intake & Output 04/03/22 04/04/22 04/04/22 18:59 06:59 18:59 Intake Total 239.774 71.226 Output Total 650 2950 Balance -410.226 -2878.774 Weight 90.718 kg 68 kg Intake: Intake, IV Titration 239.774 71.226 Amount Heparin Sod,Pork in 0.45% 199.774 71.226 NaCl 25,000 unit In 0.45 % NaCl 1 250ml.bag @ 11. 03 UNITS/KG/HR 10.006 mls /hr IV .Q24H [facility] Rx#: [id number] Sodium Chloride 0.9% 1, 40 000 ml @ 20 mls/hr IV . Q24H [facility] Rx#:[id number] Output: Urine 650 2950 Other: Voiding Method External Catheter External Catheter - Labs CBC & Chem 7: 04/04/22 08:58 04/04/22 08:58 Labs: Abnormal Lab Results - Last 24 Hours (Table) 04/03/22 04/04/22 04/04/22 Range/Units 20:05 00:58 05:51 APTT 31.7 H (22.0-30.0) sec POC Glucose (mg/dL) 130 H 153 H (70-110) mg/dL
[2022-04-04 16:41] LABS: Glucose,Whole Blood 139 mg/dL (70-110)
[2022-04-04 16:53] LABS: Chol/HDL Ratio 3.06 Ratio; LDL Cholesterol,Calculated 47.4 mg/dL (0.0-131.0); VLDL Calculation 17.56 mg/dL (5.00-40.00)
[2022-04-04 20:22] LABS: Glucose,Whole Blood 195 mg/dL (70-110)
[2022-04-04] MEDS: SERTRALINE 100 MG TAB PO SCH (20:46)
[2022-04-04] MEDS: ATORVASTATIN 10 MG TAB PO SCH (20:46)
[2022-04-04] MEDS: FOLIC ACID 1 MG TAB PO SCH (20:46)
[2022-04-05] MEDS: HEPARIN SOD,PORK IN 0.45% NACL 25,000 UNIT in 0.45% NACL 1 250ML.BAG IV SCH (00:56)
[2022-04-05] MEDS: HEPARIN SODIUM 1,000 UN/ML (10ML VL) IV PRN (00:59)
[2022-04-05 06:07] LABS: Glucose,Whole Blood 143 mg/dL (70-110)
[2022-04-05] MEDS: INSULIN ASPART (NovoLOG) 100 UNIT/ML VIAL SQ SCH ×4 (06:09→21:04)
[2022-04-05] MEDS: SODIUM CHLORIDE 0.9% 1,000 ML IV SCH (06:23)
[2022-04-05] MEDS: PANTOPRAZOLE 40 MG TABLET PO SCH (06:33)
[2022-04-05 08:00] LABS: Basophils % (A) 0 %; Eosinophils # (A) 0.1 k/uL (0-0.7); Eosinophils % (A) 2 %; HGB 11.8 gm/dL (13.0-17.5); Hypochromasia Slight; Lymphocytes # (A) 0.4 k/uL (1.0-4.8); Lymphocytes % (A) 6 %; MCH 28.7 pg (25.0-35.0); MCHC 31.8 g/dL (31.0-37.0); MCV 90.3 fL (80.0-100.0); Mean Platelet Volume 7.9; Monocytes # (A) 0.6 k/uL (0-1.0); Monocytes % (A) 8 %; Neutrophils % (A) 83 %; Platelet Count 226 k/uL (150-450); RDW 14.6 % (11.5-15.5); WBC 7.3 k/uL (3.8-10.6)
[2022-04-05 08:18] LABS: Calcium 8.6 mg/dL (8.4-10.2); Potassium 3.6 mmol/L (3.5-5.1)
[2022-04-05] MEDS ORDERED: POTASSIUM CHLORIDE ER 20 MEQ TAB.ER PO STA (09:09)
[2022-04-05] MEDS: FERROUS SULFATE 325 MG TAB PO SCH (09:28)
[2022-04-05] MEDS: FUROSEMIDE 10 MG/ML 4 ML VIAL IV SCH (09:28)
[2022-04-05] MEDS: CHOLECALCIFEROL 25 MCG (1000 IU) TABLET PO SCH (09:28)
[2022-04-05] MEDS: LOSARTAN 50 MG TAB PO SCH (09:28)
[2022-04-05] MEDS: ASPIRIN 325 MG TAB PO SCH (09:28)
[2022-04-05] MEDS: amLODIPine 10 MG TAB PO SCH (09:29)
[2022-04-05] MEDS: CYANOCOBALAMIN 500 MCG TAB PO SCH (09:29)
[2022-04-05] MEDS: hydrALAZINE HCL 25 MG TAB PO SCH ×2 (09:29→21:04)
[2022-04-05 11:37] LABS: Glucose,Whole Blood 194 mg/dL (70-110)
--- NOTE | 2022-04-05 12:48 | P.PN ---
Subjective Progress Note Date: 04/05/22 Patient is a 76-year-old male was transferred from [facility] after he presented there with the complaints of shortness of breath, orthopnea. 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 Patient denied any fever chills. Patient chest x-ray is consistent with pulmonary edema. Patient had an echocardiogram which showed normal ejection fraction the past patient does have history of atrial fibrillation. Patient appears to be in congestive heart failure patient denied any chest pain. Patient is presently on IV heparin cardiology evaluated the patient. 04/04/2022 Patient is seen and evaluated in follow-up this morning with cardiology following closely. Patient was maintained on IV Lasix and cardiology rec ommending to continue at this time. No new labs from this morning and last documented kidney function was elevated will repeat labs this morning which are pending. Patient is currently on room air at 92% and blood pressure is elevated. Hydralazine being added by cardiology. This patient does have history of atrial fibrillation and is not on any anticoagulation in the outpatient setting and being investigated further by cardiology. Patient is 97% on room air and denies worsening shortness of breath. Patient and at the bedside report not eating very much and patient is fatigued. Patient reportedly lives at [facility] and plan is to return there once stabilized discharge. Labs came back and hemoglobin is 11.0, sodium is 137, potassium 3.8, BUN 46 and creatinine mildly improved at 1.57. Patient is also currently continued on IV heparin per cardiology. Echo and repeat labs in the morning. 04/05/2022 Patient evaluated today resting in bed with family at the bedside. Echocar diogram is currently pending. IV heparin is discontinued, He has been transitioned to oral lasix. Labs today showing a white count of 7.3, hgb 11.8, sodium 140, potassium 3.6, BUN 39, creatinine 1.54 which has improved. Blood glucose in the 140s. Will resume home lantus dose and continue on S/S coverage. Beta zenaida has been placed on hold. Plavix discontinued and patient started on eliquis for anticoagulation. Unsure when last BM was will resume home lactulose. He does have congested cough, no wheezing noted. Weak, PT/OT has been consulted. Review of systems: Constitutional: reports of fatigue, no reports of fever, or chills Cardiovascular: No reports of chest pain or palpitations Respiratory: No reports of shortness of breath or cough GI: No reports of nausea, vomiting, or diarrhea, reports not much of an appetite : No reports of dysuria or retention Neurovascular: reports of generalized weakness and at the bedside reports patient is wheelchair-bound All medications have been reviewed PHYSICAL EXAMINATION: GENERAL: The patient is alert and oriented x3, not in any acute distress. Well developed, well nourished. HEENT: Pupils are round and equally reacting to light. EOMI. No scleral icterus. No conjunctival pallor. Normocephalic, atraumatic. No pharyngeal erythema. No thyromegaly. CARDIOVASCULAR: S1 and S2 present. No murmurs, rubs, or gallops. Elevated JVD PULMONARY: Congestion, no wheezing or crackles noted. ABDOMEN: Soft, nontender, nondistended, normoactive bowel sounds. No palpable organomegaly. MUSCULOSKELETAL: No joint swelling or deformity. EXTREMITIES: No cyanosis, clubbing, bilateral pitting pedal edema 1+ NEUROLOGICAL: Gross neurological examination did not reveal any focal deficits. Diffusely weak SKIN: No rashes. Assessment: -Shortness of breath: secondary to acute on chronic diastolic dysfunction with acute exacerbation. Transitioned back to oral lasix. -Troponin elevation secondary to end-stage renal disease and heart failure -Chronic kidney disease stage III baseline creatinine is around 1.8 , also a component of acute kidney injury secondary to prerenal of congestive heart failure and patient has diabetic nephropathy. -Coronary artery disease -Insulin-dependent diabetes mellitus type 2 -Gastroesophageal reflux disease -Hyperlipidemia -Hypertension -benign prostatic hypertrophy -History of atrial fibrillation currently sinus rhythm paced rhythm patient has an AICD. -Depression -DVT prophylaxis: Eliquis -GI prophylaxis: Protonix Plan: Started on Eliquis today Echocardiogram pending Transitioned to oral lasix Resume home lactulose, lantus Continue novolog s/s PT/OT consultatin Continue nasal cannula, encourage IS Discharge planning The impression and plan of care has been dictated by Eneida Jaramillo, Nurse Practitioner as directed. Dr. Padma MD I have performed a history and physical examination and medical decision making of this patient, discussed the same with the dictator, and agree with the dictators assessment and plan as written, documented as a scribe. Based on total visit time, I have performed more than 50% of this visit. Objective - Vital Signs Vital signs: Vital Signs Temp 98.2 F 04/05/22 04:00 Pulse 62 04/05/22 04:00 Resp 19 04/05/22 04:00 BP 152/72 04/05/22 04:00 Pulse Ox 92 L 04/04/22 20:00 FiO2 Intake & Output 04/04/22 04/05/22 04/05/22 18:59 06:59 18:59 Intake Total 408.208 199.792 Output Total 1250 1100 Balance -841.792 -900.208 Weight 71 kg Intake: Intake, IV Titration 50.208 199.792 Amount Heparin Sod,Pork in 0.45% 50.208 199.792 NaCl 25,000 unit In 0.45 % NaCl 1 250ml.bag @ 11. 03 UNITS/KG/HR 10.006 mls /hr IV .Q24H [facility] Rx#: [id number] Oral 358 Output: Urine 1250 1100 Other: Voiding Method External Catheter External Catheter - Labs CBC & Chem 7: 04/05/22 06:56 04/05/22 06:56 Labs: Abnormal Lab Results - Last 24 Hours (Table) 04/03/22 04/04/22 04/04/22 Range/Units 21:53 08:50 08:58 RBC (4.30-5.90) m/uL Hgb (13.0-17.5) gm/dL Hct (39.0-53.0) % Lymphocytes # (1.0-4.8) k/uL APTT 36.6 H (22.0-30.0) sec Carbon Dioxide (22-30) mmol/L BUN 46 H (9-20) mg/dL Creatinine 1.57 H (0.66-1.25) mg/dL Glucose 187 H (74-99) mg/dL POC Glucose (mg/dL) (70-110) mg/dL Hemoglobin A1c 6.2 H (0.0-6.0) % HDL Cholesterol 31.60 L (40.00-60.00) mg/dL 04/04/22 04/04/22 04/04/22 Range/Units 08:58 11:22 16:39 RBC 3.88 L (4.30-5.90) m/uL Hgb 11.0 L (13.0-17.5) gm/dL Hct 35.1 L (39.0-53.0) % Lymphocytes # 0.3 L (1.0-4.8) k/uL APTT (22.0-30.0) sec Carbon Dioxide (22-30) mmol/L BUN (9-20) mg/dL Creatinine (0.66-1.25) mg/dL Glucose (74-99) mg/dL POC Glucose (mg/dL) 157 H 139 H (70-110) mg/dL Hemoglobin A1c (0.0-6.0) % HDL Cholesterol (40.00-60.00) mg/dL 04/04/22 04/04/22 04/05/22 Range/Units 17:32 20:20 06:05 RBC (4.30-5.90) m/uL Hgb (13.0-17.5) gm/dL Hct (39.0-53.0) % Lymphocytes # (1.0-4.8) k/uL APTT 31.0 H (22.0-30.0) sec Carbon Dioxide (22-30) mmol/L BUN (9-20) mg/dL Creatinine (0.66-1.25) mg/dL Glucose (74-99) mg/dL POC Glucose (mg/dL) 195 H 143 H (70-110) mg/dL Hemoglobin A1c (0.0-6.0) % HDL Cholesterol (40.00-60.00) mg/dL 04/05/22 04/05/22 04/05/22 Range/Units 06:56 06:56 06:56 RBC 4.10 L (4.30-5.90) m/uL Hgb 11.8 L (13.0-17.5) gm/dL Hct 37.0 L (39.0-53.0) % Lymphocytes # 0.4 L (1.0-4.8) k/uL APTT 45.2 H (22.0-30.0) sec Carbon Dioxide 33 H (22-30) mmol/L BUN 39 H (9-20) mg/dL Creatinine 1.54 H (0.66-1.25) mg/dL Glucose 141 H (74-99) mg/dL POC Glucose (mg/dL) (70-110) mg/dL Hemoglobin A1c (0.0-6.0) % HDL Cholesterol (40.00-60.00) mg/dL Assessment and Plan Time with Patient: Less than 30
[2022-04-05] MEDS: APIXABAN 5 MG TAB PO SCH ×2 (12:59→21:04)
[2022-04-05] MEDS: LACTULOSE 20 GM/30 ML CUP PO SCH ×2 (13:00→13:06)
[2022-04-05] MEDS: FENOFIBRATE 160 MG TAB PO SCH (13:00)
--- NOTE | 2022-04-05 14:12 | P.PN ---
Subjective Progress Note Date: 04/05/22 HISTORY OF PRESENT ILLNESS: The patient is a 76-year-old gentleman who is a poor historian where the history was taken from the was bedside. He does have a past medical history significant for heart failure with preserved ejection fraction, history of cardiomyopathy and status post AICD, permanent atrial fibrillation, as well as chronic kidney disease. According to his he has not been feeling well for the last few days where he was experiencing increasing in the shortness of breath with exertion. No symptoms of chest pain or chest discomfort. No fever and no chills. No cough or sputum production. For the last 24 hours his shortness of breath has progressed and he was unable to lay flat in bed. He also developed mild bilateral lower extremities edema. For that reason he was brought to the emergency department. He underwent a workup including EKG showed underlying atrial fibrillation with ventricular paced rhythm. Chest x-ray was not performed. NT proBNP came in to be elevated around 18,000. Subsequent the patient was admitted to the hospital he was started on IV Lasix. He stated that since he was started on IV Lasix his shortness of breath as well as lower extremity edema have improved. The patient had an echocardiogram in 2020 and that revealed normal left ventricular systolic function was hypertensive heart disease and mild valvular abnormalities. His hemoglobin during this admission is 11.3. His GFR is 51. He is known to have chronic kidney disease and that is his baseline. 04/04/2022 The patient was seen this morning. He is feeling better. He still congested. On examination he continues to have bilateral rhonchi. The edema has improved significantly. His pressure continues to be elevated. He is on max dose of amlodipine and also losartan. I'm going to add hydralazine to the current medical regimen. He reports no pain in the chest and no dizziness or lightheadedness and no feeling of heart racing or fluttering. For some reason he is not on any oral anticoagulation according to him and his he possibly had history of GI bleeding. Further clarification to be performed. He is somewhat poor historian. 04/05/2022 Patient seen and examined this morning at the bedside. Patient's family is present. Patient denies any chest pain or pressure. He denies shortness of breath. He remains on IV Lasix. Patient also remains on IV heparin. His hemoglobin is stable. Family member at bedside states his blood thinner was stopped a few months ago at the [facility] but she is unsure of why. Echocardiogram co mpleted revealing ejection fraction 50-55%. PHYSICAL EXAM: VITAL SIGNS: Reviewed. GENERAL: Well-developed in no acute distress. NECK: Supple. No JVD or thyromegaly LUNGS: Respirations even and unlabored. Lungs essentially clear to auscultation bilaterally. HEART: Regular rate and rhythm. S1 and S2 heard. Systolic murmur. EXTREMITIES: Normal range of motion. No clubbing or cyanosis. Peripheral pulses intact. No lower extremity edema ASSESSMENT: Shortness of breath Acute on chronic heart failure with preserved ejection fraction Hypertension History of cardiomyopathy, status post AICD Permanent atrial fibrillation Chronic kidney disease PLAN: Discontinue IV heparin. Begin Eliquis 5 mg twice a day. Monitor for signs of bleeding. Monitor hemoglobin. Discontinue IV Lasix. Begin oral Lasix 40 mg twice a day Continue additional cardiac medications Further recommendations pending patient's course Nurse practitioner note has been reviewed by physician. Signing provider agrees with the documented findings, assessment, and plan of care. Objective - Vital Signs Vital signs: Vital Signs Temp 97.9 F 04/05/22 12:00 Pulse 50 L 04/05/22 12:00 Resp 16 04/05/22 12:00 BP 143/74 04/05/22 12:00 Pulse Ox 90 L 04/05/22 12:00 FiO2 Intake & Output 04/04/22 04/05/22 04/05/22 18:59 06:59 18:59 Intake Total 408.208 199.792 240 Output Total 1250 1100 400 Balance -841.792 -900.208 -160 Weight 71 kg Intake: Intake, IV Titration 50.208 199.792 Amount Heparin Sod,Pork in 0.45% 50.208 199.792 NaCl 25,000 unit In 0.45 % NaCl 1 250ml.bag @ 11. 03 UNITS/KG/HR 10.006 mls /hr IV .Q24H [facility] Rx#: [id number] Oral 358 240 Output: Urine 1250 1100 400 Other: Voiding Method External Catheter External Catheter External Catheter - Labs CBC & Chem 7: 04/05/22 06:56 04/05/22 06:56 Labs: Abnormal Lab Results - Last 24 Hours (Table) 04/04/22 04/04/22 04/04/22 Range/Units 08:58 16:39 17:32 RBC (4.30-5.90) m/uL Hgb (13.0-17.5) gm/dL Hct (39.0-53.0) % Lymphocytes # (1.0-4.8) k/uL APTT 31.0 H (22.0-30.0) sec Carbon Dioxide (22-30) mmol/L BUN (9-20) mg/dL Creatinine (0.66-1.25) mg/dL Glucose (74-99) mg/dL POC Glucose (mg/dL) 139 H (70-110) mg/dL HDL Cholesterol 31.60 L (40.00-60.00) mg/dL 04/04/22 04/05/22 04/05/22 Range/Units 20:20 06:05 06:56 RBC 4.10 L (4.30-5.90) m/uL Hgb 11.8 L (13.0-17.5) gm/dL Hct 37.0 L (39.0-53.0) % Lymphocytes # 0.4 L (1.0-4.8) k/uL APTT (22.0-30.0) sec Carbon Dioxide (22-30) mmol/L BUN (9-20) mg/dL Creatinine (0.66-1.25) mg/dL Glucose (74-99) mg/dL POC Glucose (mg/dL) 195 H 143 H (70-110) mg/dL HDL Cholesterol (40.00-60.00) mg/dL 04/05/22 04/05/22 04/05/22 Range/Units 06:56 06:56 11:36 RBC (4.30-5.90) m/uL Hgb (13.0-17.5) gm/dL Hct (39.0-53.0) % Lymphocytes # (1.0-4.8) k/uL APTT 45.2 H (22.0-30.0) sec Carbon Dioxide 33 H (22-30) mmol/L BUN 39 H (9-20) mg/dL Creatinine 1.54 H (0.66-1.25) mg/dL Glucose 141 H (74-99) mg/dL POC Glucose (mg/dL) 194 H (70-110) mg/dL HDL Cholesterol (40.00-60.00) mg/dL
[2022-04-05] MEDS: FUROSEMIDE 40 MG TAB PO SCH (16:12)
[2022-04-05 16:23] LABS: Glucose,Whole Blood 132 mg/dL (70-110)
[2022-04-05 20:06] LABS: Glucose,Whole Blood 168 mg/dL (70-110)
[2022-04-05] MEDS: SERTRALINE 100 MG TAB PO SCH (21:04)
[2022-04-05] MEDS: FOLIC ACID 1 MG TAB PO SCH (21:04)
[2022-04-05] MEDS: ATORVASTATIN 10 MG TAB PO SCH (21:04)
[2022-04-05] MEDS: INSULIN DETEMIR (LEVEMIR) 100 UNIT/ML SYR SQ SCH (21:04)
[2022-04-06] MEDS: SODIUM CHLORIDE 0.9% 1,000 ML IV SCH (02:56)
[2022-04-06 05:59] LABS: Glucose,Whole Blood 118 mg/dL (70-110)
[2022-04-06] MEDS: INSULIN ASPART (NovoLOG) 100 UNIT/ML VIAL SQ SCH ×4 (06:04→20:35)
[2022-04-06] MEDS: PANTOPRAZOLE 40 MG TABLET PO SCH (06:40)
[2022-04-06] MEDS: CHOLECALCIFEROL 25 MCG (1000 IU) TABLET PO SCH (08:54)
[2022-04-06] MEDS: LACTULOSE 20 GM/30 ML CUP PO SCH (08:54)
[2022-04-06] MEDS: LOSARTAN 50 MG TAB PO SCH (08:54)
[2022-04-06] MEDS: APIXABAN 5 MG TAB PO SCH ×2 (08:54→21:48)
[2022-04-06] MEDS: hydrALAZINE HCL 25 MG TAB PO SCH (08:54)
[2022-04-06] MEDS: FERROUS SULFATE 325 MG TAB PO SCH (08:54)
[2022-04-06] MEDS: ASPIRIN 81 MG PO SCH (08:54)
[2022-04-06] MEDS: CYANOCOBALAMIN 500 MCG TAB PO SCH (08:54)
[2022-04-06] MEDS: amLODIPine 10 MG TAB PO SCH (08:54)
[2022-04-06] MEDS: PYRIDOXINE 50 MG TAB PO SCH (08:55)
[2022-04-06] MEDS: FUROSEMIDE 40 MG TAB PO SCH ×2 (08:59→16:37)
[2022-04-06 09:09] LABS: Basophils % (A) 0 %; Eosinophils # (A) 0.1 k/uL (0-0.7); Eosinophils % (A) 1 %; HCT 37.8 % (39.0-53.0); HGB 11.7 gm/dL (13.0-17.5); Hypochromasia Slight; Lymphocytes # (A) 0.4 k/uL (1.0-4.8); Lymphocytes % (A) 5 %; MCH 28.1 pg (25.0-35.0); MCHC 31.1 g/dL (31.0-37.0); MCV 90.3 fL (80.0-100.0); Mean Platelet Volume 7.9; Monocytes # (A) 0.5 k/uL (0-1.0); Monocytes % (A) 5 %; Neutrophils # (A) 7.8 k/uL (1.3-7.7); Neutrophils % (A) 88 %; Platelet Count 261 k/uL (150-450); RBC 4.18 m/uL (4.30-5.90); RDW 14.5 % (11.5-15.5); WBC 8.8 k/uL (3.8-10.6)
[2022-04-06] MEDS ORDERED: hydrALAZINE HCL 25 MG TAB PO SCH (09:30)
[2022-04-06 09:41] LABS: Calcium 8.7 mg/dL (8.4-10.2); Potassium 3.6 mmol/L (3.5-5.1)
[2022-04-06] MEDS ORDERED: hydrALAZINE HCL 25 MG TAB PO ONE (09:45)
--- NOTE | 2022-04-06 11:56 | P.PN ---
Subjective Progress Note Date: 04/06/22 HISTORY OF PRESENT ILLNESS: The patient is a 76-year-old gentleman who is a poor historian where the history was taken from the was bedside. He does have a past medical history significant for heart failure with preserved ejection fraction, history of cardiomyopathy and status post AICD, permanent atrial fibrillation, as well as chronic kidney disease. According to his he has not been feeling well for the last few days where he was experiencing increasing in the shortness of breath with exertion. No symptoms of chest pain or chest discomfort. No fever and no chills. No cough or sputum production. For the last 24 hours his shortness of breath has progressed and he was unable to lay flat in bed. He also developed mild bilateral lower extremities edema. For that reason he was brought to the emergency department. He underwent a workup including EKG showed underlying atrial fibrillation with ventricular paced rhythm. Chest x-ray was not performed. NT proBNP came in to be elevated around 18,000. Subsequent the patient was admitted to the hospital he was started on IV Lasix. He stated that since he was started on IV Lasix his shortness of breath as well as lower extremity edema have improved. The patient had an echocardiogram in 2020 and that revealed normal left ventricular systolic function was hypertensive heart disease and mild valvular abnormalities. His hemoglobin during this admission is 11.3. His GFR is 51. He is known to have chronic kidney disease and that is his baseline. 04/04/2022 The patient was seen this morning. He is feeling better. He still congested. On examination he continues to have bilateral rhonchi. The edema has improved significantly. His pressure continues to be elevated. He is on max dose of amlodipine and also losartan. I'm going to add hydralazine to the current medical regimen. He reports no pain in the chest and no dizziness or lightheadedness and no feeling of heart racing or fluttering. For some reason he is not on any oral anticoagulation according to him and his he possibly had history of GI bleeding. Further clarification to be performed. He is somewhat poor historian. 04/05/2022 Patient seen and examined this morning at the bedside. Patient's family is present. Patient denies any chest pain or pressure. He denies shortness of breath. He remains on IV Lasix. Patient also remains on IV heparin. His hemoglobin is stable. Family member at bedside states his blood thinner was stopped a few months ago at the [facility] but she is unsure of why. Echocardiogram co mpleted revealing ejection fraction 50-55%. 04/06/2022 Patient examined this morning at the bedside. Patient denies chest pain or pressure. Denies SOB. Patient has been transitioned to Eliquis. Hemoglobin remains stable. SBP on the higher side in the 150s. PHYSICAL EXAM: VITAL SIGNS: Reviewed. GENERAL: Well-developed in no acute distress. NECK: Supple. No JVD or thyromegaly LUNGS: Respirations even and unlabored. Lungs essentially clear to auscultation bilaterally. HEART: Regular rate and rhythm. S1 and S2 heard. Systolic murmur. EXTREMITIES: Normal range of motion. No clubbing or cyanosis. Peripheral pulses intact. No lower extremity edema ASSESSMENT: Shortness of breath Acute on chronic heart failure with preserved ejection fraction Hypertension History of cardiomyopathy, status post AICD Permanent atrial fibrillation Chronic kidney disease PLAN: Continue current cardiac medications Increase hydralazine to 50 mg twice a day for optimal blood pressure control Further recommendations pending patient's course Nurse practitioner note has been reviewed by physician. Signing provider agrees with the documented findings, assessment, and plan of care. Objective - Vital Signs Vital signs: Vital Signs Temp 99.3 F 04/06/22 08:50 Pulse 54 L 04/06/22 08:50 Resp 20 04/06/22 08:50 BP 157/84 04/06/22 08:50 Pulse Ox 85 L 04/06/22 08:50 FiO2 Intake & Output 04/05/22 04/06/22 04/06/22 18:59 06:59 18:59 Intake Total 600 40 Output Total 750 Balance -150 40 Intake: Intake, IV Titration 40 Amount Sodium Chloride 0.9% 1, 40 000 ml @ 20 mls/hr IV . Q24H [facility] Rx#:[id number] Oral 600 Output: Urine 750 Other: Voiding Method External Catheter Urinal Urinal # Voids 2 1 - Labs CBC & Chem 7: 04/06/22 08:09 04/06/22 08:09 Labs: Abnormal Lab Results - Last 24 Hours (Table) 04/05/22 04/05/22 04/06/22 Range/Units 16:21 20:04 05:57 RBC (4.30-5.90) m/uL Hgb (13.0-17.5) gm/dL Hct (39.0-53.0) % Neutrophils # (1.3-7.7) k/uL Lymphocytes # (1.0-4.8) k/uL Carbon Dioxide (22-30) mmol/L BUN (9-20) mg/dL Creatinine (0.66-1.25) mg/dL Glucose (74-99) mg/dL POC Glucose (mg/dL) 132 H 168 H 118 H (70-110) mg/dL 04/06/22 04/06/22 Range/Units 08:09 08:09 RBC 4.18 L (4.30-5.90) m/uL Hgb 11.7 L (13.0-17.5) gm/dL Hct 37.8 L (39.0-53.0) % Neutrophils # 7.8 H (1.3-7.7) k/uL Lymphocytes # 0.4 L (1.0-4.8) k/uL Carbon Dioxide 31 H (22-30) mmol/L BUN 39 H (9-20) mg/dL Creatinine 1.49 H (0.66-1.25) mg/dL Glucose 126 H (74-99) mg/dL POC Glucose (mg/dL) (70-110) mg/dL
--- NOTE | 2022-04-06 12:23 | XR ---
EXAMINATION TYPE: XR chest 2V DATE OF EXAM: 04/06/2022 COMPARISON: 04/06/22 HISTORY: Shortness of breath TECHNIQUE: Frontal and lateral views of the chest are obtained. FINDINGS: Scattered senescent parenchymal changes noted. Hyperinflation compatible with COPD. No evidence for infiltrate. No evidence for atelectasis. Heart size is stable. Mediastinal structures are stable and grossly unremarkable. No evidence for hilar prominence. Degenerative changes dorsal spine. IMPRESSION: 1. No evidence for acute pulmonary disease.
[2022-04-06 12:24] LABS: Glucose,Whole Blood 159 mg/dL (70-110)
[2022-04-06] MEDS: CIPROFLOXACIN 0.3% OPHTH OINT 3.5 GM TUBE BOTH EYES SCH ×2 (16:38→21:49)
[2022-04-06 17:21] LABS: Glucose,Whole Blood 92 mg/dL (70-110)
--- NOTE | 2022-04-06 18:12 | P.PN ---
Subjective Progress Note Date: 04/06/22 Patient is a 76-year-old male was transferred from [facility] after he presented there with the complaints of shortness of breath, orthopnea. 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 Patient denied any fever chills. Patient chest x-ray is consistent with pulmonary edema. Patient had an echocardiogram which showed normal ejection fraction the past patient does have history of atrial fibrillation. Patient appears to be in congestive heart failure patient denied any chest pain. Patient is presently on IV heparin cardiology evaluated the patient. 04/04/2022 Patient is seen and evaluated in follow-up this morning with cardiology following closely. Patient was maintained on IV Lasix and cardiology rec ommending to continue at this time. No new labs from this morning and last documented kidney function was elevated will repeat labs this morning which are pending. Patient is currently on room air at 92% and blood pressure is elevated. Hydralazine being added by cardiology. This patient does have history of atrial fibrillation and is not on any anticoagulation in the outpatient setting and being investigated further by cardiology. Patient is 97% on room air and denies worsening shortness of breath. Patient and at the bedside report not eating very much and patient is fatigued. Patient reportedly lives at [facility] and plan is to return there once stabilized discharge. Labs came back and hemoglobin is 11.0, sodium is 137, potassium 3.8, BUN 46 and creatinine mildly improved at 1.57. Patient is also currently continued on IV heparin per cardiology. Echo and repeat labs in the morning. 04/05/2022 Patient evaluated today resting in bed with family at the bedside. Echocar diogram is currently pending. IV heparin is discontinued, He has been transitioned to oral lasix. Labs today showing a white count of 7.3, hgb 11.8, sodium 140, potassium 3.6, BUN 39, creatinine 1.54 which has improved. Blood glucose in the 140s. Will resume home lantus dose and continue on S/S coverage. Beta zenaida has been placed on hold. Plavix discontinued and patient started on eliquis for anticoagulation. Unsure when last BM was will resume home lactulose. He does have congested cough, no wheezing noted. Weak, PT/OT has been consulted. 04/06/2022 Patient sitting up in bed today. He continues with shortness of breath requiring 2L nasal cannula. He was unable to be weaned, 85% on room air. Covid is negative. Chest xray was completed which is negative for acute cardiopulmonary process, however patient does have hyperinflation possibly COPD which patient does not have history of. Patient will be started on pulmicort. Patient continues on eliquis. Hydralazine was increased by cardiology. Labs today showing white count 8.8, hgb 11.7, sodium 141, potassium 3.6, BUN 39, creatinine 1.49, blood glucose within normal limits, calcium 8.7. Review of systems: Constitutional: reports of fatigue, no reports of fever, or chills Cardiovascular: No reports of chest pain or palpitations Respiratory: Reports shortness of breath, intermittent non productive cough. GI: No reports of nausea, vomiting, or diarrhea, reports not much of an appetite : No reports of dysuria or retention Neurovascular: reports of generalized weakness and at the bedside reports patient is wheelchair-bound All medications have been reviewed PHYSICAL EXAMINATION: GENERAL: The patient is alert and oriented x3, not in any acute distress. Well developed, well nourished. HEENT: Pupils are round and equally reacting to light. EOMI. No scleral icterus. No conjunctival pallor. Normocephalic, atraumatic. No pharyngeal erythema. No thyromegaly. CARDIOVASCULAR: S1 and S2 present. No murmurs, rubs, or gallops. Elevated JVD PULMONARY: Continues with scattered rhonchi, no wheezing, no crackles noted. ABDOMEN: Soft, nontender, nondistended, normoactive bowel sounds. No palpable organomegaly. MUSCULOSKELETAL: No joint swelling or deformity. EXTREMITIES: No cyanosis, clubbing, bilateral pitting pedal edema 1+ NEUROLOGICAL: Gross neurological examination did not reveal any focal deficits. Diffusely weak SKIN: No rashes. Assessment: -Shortness of breath: secondary to acute on chronic diastolic dysfunction with acute exacerbation. Transitioned back to oral lasix. -Troponin elevation secondary to end-stage renal disease and heart failure -Chronic kidney disease stage III baseline creatinine is around 1.8 , also a component of acute kidney injury secondary to prerenal of congestive heart failure and patient has diabetic nephropathy. -Coronary artery disease -Insulin-dependent diabetes mellitus type 2 -Gastroesophageal reflux disease -Hyperlipidemia -Hypertension -benign prostatic hypertrophy -History of paroxysmal atrial fibrillation currently sinus rhythm paced rhythm patient has an AICD. -Depression -History of prostate cancer with radiation -DVT prophylaxis: Eliquis -GI prophylaxis: Protonix Plan: Continues on eliquis Transitioned to oral lasix Resume home lactulose, lantus Continue novolog s/s PT/OT Continue nasal cannula, encourage IS Patient started on pulmicort will be monitored overnight Discontinue protonix and start pepcid secondary to renal disease Discharge Planning The impression and plan of care has been dictated by Eneida Jaramillo Nurse Practitioner as directed. Dr. Padma MD I have performed a history and physical examination and medical decision making of this patient, discussed the same with the dictator, and agree with the dictators assessment and plan as written, documented as a scribe. Based on total visit time, I have performed more than 50% of this visit. Objective - Vital Signs Vital signs: Vital Signs Temp 98 F 04/06/22 12:30 Pulse 55 L 04/06/22 16:35 Resp 16 04/06/22 16:35 BP 156/74 04/06/22 16:35 Pulse Ox 96 04/06/22 16:35 FiO2 Intake & Output 04/05/22 04/06/22 04/06/22 18:59 06:59 18:59 Intake Total 600 876 Output Total 750 240 Balance -150 636 Intake: Intake, IV Titration 40 Amount Sodium Chloride 0.9% 1, 40 000 ml @ 20 mls/hr IV . Q24H [facility] Rx#:[id number] Oral 600 836 Output: Urine 750 240 Other: Voiding Method External Catheter Urinal Urinal # Voids 2 1 - Labs CBC & Chem 7: 04/06/22 08:09 04/06/22 08:09 Labs: Abnormal Lab Results - Last 24 Hours (Table) 04/05/22 04/06/22 04/06/22 Range/Units 20:04 05:57 08:09 RBC 4.18 L (4.30-5.90) m/uL Hgb 11.7 L (13.0-17.5) gm/dL Hct 37.8 L (39.0-53.0) % Neutrophils # 7.8 H (1.3-7.7) k/uL Lymphocytes # 0.4 L (1.0-4.8) k/uL Carbon Dioxide (22-30) mmol/L BUN (9-20) mg/dL Creatinine (0.66-1.25) mg/dL Glucose (74-99) mg/dL POC Glucose (mg/dL) 168 H 118 H (70-110) mg/dL 04/06/22 04/06/22 Range/Units 08:09 12:05 RBC (4.30-5.90) m/uL Hgb (13.0-17.5) gm/dL Hct (39.0-53.0) % Neutrophils # (1.3-7.7) k/uL Lymphocytes # (1.0-4.8) k/uL Carbon Dioxide 31 H (22-30) mmol/L BUN 39 H (9-20) mg/dL Creatinine 1.49 H (0.66-1.25) mg/dL Glucose 126 H (74-99) mg/dL POC Glucose (mg/dL) 159 H (70-110) mg/dL Assessment and Plan Time with Patient: Less than 30
[2022-04-06] MEDS: BUDESONIDE 0.5 MG/2 ML NEBU INHALATION SCH (19:42)
[2022-04-06 20:24] LABS: Glucose,Whole Blood 118 mg/dL (70-110)
[2022-04-06] MEDS ORDERED: FAMOTIDINE 20 MG TAB PO SCH (21:00)
[2022-04-06] MEDS: ATORVASTATIN 10 MG TAB PO SCH (21:48)
[2022-04-06] MEDS: SERTRALINE 100 MG TAB PO SCH (21:49)
[2022-04-06] MEDS: FOLIC ACID 1 MG TAB PO SCH (21:49)
[2022-04-06] MEDS: FAMOTIDINE 20 MG TAB PO SCH (21:49)
[2022-04-06] MEDS: hydrALAZINE HCL 50 MG TAB PO SCH (21:49)
[2022-04-06] MEDS: INSULIN DETEMIR (LEVEMIR) 100 UNIT/ML SYR SQ SCH (21:52)
[2022-04-07 05:43] LABS: Glucose,Whole Blood 110 mg/dL (70-110)
[2022-04-07] MEDS: SODIUM CHLORIDE 0.9% 1,000 ML IV SCH (05:45)
[2022-04-07] MEDS: INSULIN ASPART (NovoLOG) 100 UNIT/ML VIAL SQ SCH ×4 (05:45→21:07)
[2022-04-07] MEDS: BUDESONIDE 0.5 MG/2 ML NEBU INHALATION SCH ×2 (08:12→19:55)
[2022-04-07] MEDS: hydrALAZINE HCL 50 MG TAB PO SCH ×2 (09:05→21:10)
[2022-04-07] MEDS: ASPIRIN 81 MG PO SCH (09:05)
[2022-04-07] MEDS: CHOLECALCIFEROL 25 MCG (1000 IU) TABLET PO SCH (09:05)
[2022-04-07] MEDS: amLODIPine 10 MG TAB PO SCH (09:05)
[2022-04-07] MEDS: APIXABAN 5 MG TAB PO SCH ×2 (09:05→21:10)
[2022-04-07] MEDS: FENOFIBRATE 160 MG TAB PO SCH (09:05)
[2022-04-07] MEDS: LOSARTAN 50 MG TAB PO SCH (09:05)
[2022-04-07] MEDS: CYANOCOBALAMIN 500 MCG TAB PO SCH (09:05)
[2022-04-07] MEDS: LACTULOSE 20 GM/30 ML CUP PO SCH (09:05)
[2022-04-07] MEDS: FERROUS SULFATE 325 MG TAB PO SCH (09:05)
[2022-04-07] MEDS: FUROSEMIDE 40 MG TAB PO SCH ×2 (09:05→17:44)
[2022-04-07] MEDS: CIPROFLOXACIN 0.3% OPHTH OINT 3.5 GM TUBE BOTH EYES SCH ×2 (09:06→21:11)
--- NOTE | 2022-04-07 11:53 | P.PN ---
Subjective Progress Note Date: 04/07/22 HISTORY OF PRESENT ILLNESS: The patient is a 76-year-old gentleman who is a poor historian where the history was taken from the was bedside. He does have a past medical history significant for heart failure with preserved ejection fraction, history of cardiomyopathy and status post AICD, permanent atrial fibrillation, as well as chronic kidney disease. According to his he has not been feeling well for the last few days where he was experiencing increasing in the shortness of breath with exertion. No symptoms of chest pain or chest discomfort. No fever and no chills. No cough or sputum production. For the last 24 hours his shortness of breath has progressed and he was unable to lay flat in bed. He also developed mild bilateral lower extremities edema. For that reason he was brought to the emergency department. He underwent a workup including EKG showed underlying atrial fibrillation with ventricular paced rhythm. Chest x-ray was not performed. NT proBNP came in to be elevated around 18,000. Subsequent the patient was admitted to the hospital he was started on IV Lasix. He stated that since he was started on IV Lasix his shortness of breath as well as lower extremity edema have improved. The patient had an echocardiogram in 2020 and that revealed normal left ventricular systolic function was hypertensive heart disease and mild valvular abnormalities. His hemoglobin during this admission is 11.3. His GFR is 51. He is known to have chronic kidney disease and that is his baseline. 04/04/2022 The patient was seen this morning. He is feeling better. He still congested. On examination he continues to have bilateral rhonchi. The edema has improved significantly. His pressure continues to be elevated. He is on max dose of amlodipine and also losartan. I'm going to add hydralazine to the current medical regimen. He reports no pain in the chest and no dizziness or lightheadedness and no feeling of heart racing or fluttering. For some reason he is not on any oral anticoagulation according to him and his he possibly had history of GI bleeding. Further clarification to be performed. He is somewhat poor historian. 04/05/2022 Patient seen and examined this morning at the bedside. Patient's family is present. Patient denies any chest pain or pressure. He denies shortness of breath. He remains on IV Lasix. Patient also remains on IV heparin. His hemoglobin is stable. Family member at bedside states his blood thinner was stopped a few months ago at the [facility] but she is unsure of why. Echocardiogram co mpleted revealing ejection fraction 50-55%. 04/06/2022 Patient examined this morning at the bedside. Patient denies chest pain or pressure. Denies SOB. Patient has been transitioned to Eliquis. Hemoglobin remains stable. SBP on the higher side in the 150s. 04/07/2022 Patient examined this morning at bedside. Patient denies chest pain or pressure. He denies shortness of breath. Patient's blood pressure has improved since increasing his hydralazine yesterday. PHYSICAL EXAM: VITAL SIGNS: Reviewed. GENERAL: Well-developed in no acute distress. NECK: Supple. No JVD or thyromegaly LUNGS: Respirations even and unlabored. Lungs essentially clear to auscultation bilaterally. HEART: Regular rate and rhythm. S1 and S2 heard. Systolic murmur. EXTREMITIES: Normal range of motion. No clubbing or cyanosis. Peripheral pulses intact. No lower extremity edema ASSESSMENT: Shortness of breath Acute on chronic heart failure with preserved ejection fraction Hypertension History of cardiomyopathy, status post AICD Permanent atrial fibrillation Chronic kidney disease PLAN: Continue current cardiac medications Patient is currently stable for discharge from a cardiac standpoint. We will sign off. Please reconsult if needed. Nurse practitioner note has been reviewed by physician. Signing provider agrees with the documented findings, assessment, and plan of care. Objective - Vital Signs Vital signs: Vital Signs Temp 98.4 F 04/07/22 09:00 Pulse 55 L 04/07/22 09:00 Resp 18 04/07/22 09:00 BP 131/65 04/07/22 09:00 Pulse Ox 93 L 04/07/22 09:00 FiO2 28 04/06/22 19:42 Intake & Output 04/06/22 04/07/22 04/07/22 18:59 06:59 18:59 Intake Total 876 240 Output Total 240 Balance 636 240 Weight 64 kg Intake: Intake, IV Titration 40 Amount Sodium Chloride 0.9% 1, 40 000 ml @ 20 mls/hr IV . Q24H [facility] Rx#:[id number] Oral 836 240 Output: Urine 240 Other: Voiding Method Urinal Urinal Urinal Diaper Diaper # Voids 1 1 1 # Bowel Movements 1 - Labs CBC & Chem 7: 04/06/22 08:09 04/06/22 08:09 Labs: Abnormal Lab Results - Last 24 Hours (Table) 04/06/22 04/06/22 Range/Units 12:05 20:22 POC Glucose (mg/dL) 159 H 118 H (70-110) mg/dL
[2022-04-07 12:01] LABS: Glucose,Whole Blood 132 mg/dL (70-110)
[2022-04-07] MEDS: PYRIDOXINE 50 MG TAB PO SCH (12:41)
[2022-04-07] MEDS ORDERED: IPRATROPIUM-ALBUTEROL 3 ML NEB INHALATION STA (13:27)
--- NOTE | 2022-04-07 16:12 | P.PN ---
Subjective Progress Note Date: 04/07/22 Patient is a 76-year-old male was transferred from [facility] after he presented there with the complaints of shortness of breath, orthopnea. 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 Patient denied any fever chills. Patient chest x-ray is consistent with pulmonary edema. Patient had an echocardiogram which showed normal ejection fraction the past patient does have history of atrial fibrillation. Patient appears to be in congestive heart failure patient denied any chest pain. Patient is presently on IV heparin cardiology evaluated the patient. 04/04/2022 Patient is seen and evaluated in follow-up this morning with cardiology following closely. Patient was maintained on IV Lasix and cardiology rec ommending to continue at this time. No new labs from this morning and last documented kidney function was elevated will repeat labs this morning which are pending. Patient is currently on room air at 92% and blood pressure is elevated. Hydralazine being added by cardiology. This patient does have history of atrial fibrillation and is not on any anticoagulation in the outpatient setting and being investigated further by cardiology. Patient is 97% on room air and denies worsening shortness of breath. Patient and at the bedside report not eating very much and patient is fatigued. Patient reportedly lives at [facility] and plan is to return there once stabilized discharge. Labs came back and hemoglobin is 11.0, sodium is 137, potassium 3.8, BUN 46 and creatinine mildly improved at 1.57. Patient is also currently continued on IV heparin per cardiology. Echo and repeat labs in the morning. 04/05/2022 Patient evaluated today resting in bed with family at the bedside. Echocar diogram is currently pending. IV heparin is discontinued, He has been transitioned to oral lasix. Labs today showing a white count of 7.3, hgb 11.8, sodium 140, potassium 3.6, BUN 39, creatinine 1.54 which has improved. Blood glucose in the 140s. Will resume home lantus dose and continue on S/S coverage. Beta zenaida has been placed on hold. Plavix discontinued and patient started on eliquis for anticoagulation. Unsure when last BM was will resume home lactulose. He does have congested cough, no wheezing noted. Weak, PT/OT has been consulted. 04/06/2022 Patient sitting up in bed today. He continues with shortness of breath requiring 2L nasal cannula. He was unable to be weaned, 85% on room air. Covid is negative. Chest xray was completed which is negative for acute cardiopulmonary process, however patient does have hyperinflation possibly COPD which patient does not have history of. Patient will be started on pulmicort. Patient continues on eliquis. Hydralazine was increased by cardiology. Labs today showing white count 8.8, hgb 11.7, sodium 141, potassium 3.6, BUN 39, creatinine 1.49, blood glucose within normal limits, calcium 8.7. 04/07/2022 Patient is sitting up in chair today, he states that his breathing has improved since yesterday. Continues on pulmicort. He did receive a one time duoneb treatment today and will also start patient on 3 days of empiric antibiotic cov erage. Cardiology has cleared patient for discharge and he continues on oral lasix. We will check a procalcitonin and repeat BMP in the AM. He does have some faint basilar crackles on exam today. Also continues on cipro eye drops which there is improvement in eye discharge today. Patient is given incentive spirometer as well. He is reaching about 750-1000 and was able to complete 10 times in a row. Remains afebrile. Review of systems: Constitutional: reports of fatigue, no reports of fever, or chills Cardiovascular: No reports of chest pain or palpitations Respiratory: Reports shortness of breath, intermittent cough reports some sputum GI: No reports of nausea, vomiting, or diarrhea, reports not much of an appetite : No reports of dysuria or retention Neurovascular: reports of generalized weakness and at the bedside reports patient is wheelchair-bound All medications have been reviewed PHYSICAL EXAMINATION: GENERAL: The patient is alert and oriented x3, not in any acute distress. Well developed, well nourished. HEENT: Pupils are round and equally reacting to light. EOMI. No scleral icterus. No conjunctival pallor. Normocephalic, atraumatic. No pharyngeal erythema. No thyromegaly. CARDIOVASCULAR: S1 and S2 present. No murmurs, rubs, or gallops. Elevated JVD PULMONARY: Continues with scattered rhonchi, no wheezing. He does have faint basilar crackles. ABDOMEN: Soft, nontender, nondistended, normoactive bowel sounds. No palpable organomegaly. MUSCULOSKELETAL: No joint swelling or deformity. EXTREMITIES: No cyanosis, clubbing, mild peripheral edema. NEUROLOGICAL: Gross neurological examination did not reveal any focal deficits. Diffusely weak SKIN: No rashes. Assessment: -Shortness of breath: secondary to acute on chronic diastolic dysfunction with acute exacerbation. Transitioned back to oral lasix. -Troponin elevation secondary to end-stage renal disease and heart failure -Chronic kidney disease stage III baseline creatinine is around 1.8 , also a component of acute kidney injury secondary to prerenal of congestive heart failure and patient has diabetic nephropathy. -Coronary artery disease -Insulin-dependent diabetes mellitus type 2 -Gastroesophageal reflux disease -Hyperlipidemia -Hypertension -benign prostatic hypertrophy -History of paroxysmal atrial fibrillation currently sinus rhythm paced rhythm patient has an AICD. -Depression -History of prostate cancer with radiation -Bilateral bacterial conjunctivitis patient is improving with eye drops. -Former tobacco use, patient smoked a pipe for many years -Possible COPD, patient requiring nasal cannula and also has been started on pulmicort -DVT prophylaxis: Eliquis -GI prophylaxis: Protonix Plan: Continues on eliquis Transitioned to oral lasix Continue oxygen support, wean as tolerated, encourage incentive spirometer Continue on pulmicort, empiric antibiotic coverage with azithromycin Check procalcitonin, repeat BMP in AM. Possible discharge back to [facility] in the next 24 to 48 hours. The impression and plan of care has been dictated by Eneida Jaramillo, Nurse Practitioner as directed. Dr. Henrique MD I have performed a history and physical examination and medical decision making of this patient, discussed the same with the dictator, and agree with the dictators assessment and plan as written, documented as a scribe. Based on total visit time, I have performed more than 50% of this visit. Objective - Vital Signs Vital signs: Vital Signs Temp 97.6 F 04/07/22 12:00 Pulse 55 L 04/07/22 12:00 Resp 16 04/07/22 12:00 BP 147/75 04/07/22 12:00 Pulse Ox 94 L 04/07/22 12:00 FiO2 28 04/06/22 19:42 Intake & Output 04/06/22 04/07/22 04/07/22 18:59 06:59 18:59 Intake Total 876 240 Output Total 240 Balance 636 240 Weight 64 kg Intake: Intake, IV Titration 40 Amount Sodium Chloride 0.9% 1, 40 000 ml @ 20 mls/hr IV . Q24H [facility] Rx#:[id number] Oral 836 240 Output: Urine 240 Other: Voiding Method Urinal Urinal Urinal Diaper Diaper # Voids 1 1 1 # Bowel Movements 1 - Labs CBC & Chem 7: 04/06/22 08:09 04/06/22 08:09 Labs: Abnormal Lab Results - Last 24 Hours (Table) 04/06/22 04/07/22 Range/Units 20:22 11:59 POC Glucose (mg/dL) 118 H 132 H (70-110) mg/dL Assessment and Plan Time with Patient: Less than 30
[2022-04-07 16:18] LABS: Glucose,Whole Blood 164 mg/dL (70-110)
[2022-04-07] MEDS: AZITHROMYCIN 500 MG TAB PO SCH (17:43)
[2022-04-07 20:09] LABS: Glucose,Whole Blood 123 mg/dL (70-110)
[2022-04-07] MEDS: SERTRALINE 100 MG TAB PO SCH (21:10)
[2022-04-07] MEDS: FAMOTIDINE 20 MG TAB PO SCH (21:10)
[2022-04-07] MEDS: FOLIC ACID 1 MG TAB PO SCH (21:10)
[2022-04-07] MEDS: ATORVASTATIN 10 MG TAB PO SCH (21:10)
[2022-04-07] MEDS: INSULIN DETEMIR (LEVEMIR) 100 UNIT/ML SYR SQ SCH (21:10)
[2022-04-08] MEDS: SODIUM CHLORIDE 0.9% 1,000 ML IV SCH (01:17)
[2022-04-08 06:06] LABS: Glucose,Whole Blood 127 mg/dL (70-110)
[2022-04-08] MEDS: INSULIN ASPART (NovoLOG) 100 UNIT/ML VIAL SQ SCH ×4 (06:09→22:04)
[2022-04-08] MEDS: amLODIPine 10 MG TAB PO SCH (08:39)
[2022-04-08] MEDS: LOSARTAN 50 MG TAB PO SCH (08:39)
[2022-04-08] MEDS: APIXABAN 5 MG TAB PO SCH ×2 (08:39→21:58)
[2022-04-08] MEDS: PYRIDOXINE 50 MG TAB PO SCH (08:39)
[2022-04-08] MEDS: FUROSEMIDE 40 MG TAB PO SCH ×2 (08:39→17:08)
[2022-04-08] MEDS: AZITHROMYCIN 500 MG TAB PO SCH (08:40)
[2022-04-08] MEDS: CYANOCOBALAMIN 500 MCG TAB PO SCH (08:40)
[2022-04-08] MEDS: FERROUS SULFATE 325 MG TAB PO SCH (08:40)
[2022-04-08] MEDS: ASPIRIN 81 MG PO SCH (08:40)
[2022-04-08] MEDS: LACTULOSE 20 GM/30 ML CUP PO SCH (08:40)
[2022-04-08] MEDS: CIPROFLOXACIN 0.3% OPHTH OINT 3.5 GM TUBE BOTH EYES SCH ×2 (08:40→22:02)
[2022-04-08] MEDS: hydrALAZINE HCL 50 MG TAB PO SCH ×2 (08:40→22:01)
[2022-04-08] MEDS: CHOLECALCIFEROL 25 MCG (1000 IU) TABLET PO SCH (08:40)
[2022-04-08 09:24] LABS: Calcium 9.1 mg/dL (8.4-10.2); Magnesium 2.2 mg/dL (1.6-2.3); Potassium 3.3 mmol/L (3.5-5.1)
--- NOTE | 2022-04-08 11:04 | XR ---
EXAMINATION TYPE: XR chest 1V DATE OF EXAM: 04/08/2022 COMPARISON: 04/06/2022 HISTORY: 76-year-old shortness of breath TECHNIQUE: Single frontal view of the chest is obtained. FINDINGS: Left anterior chest wall AICD generator with right ventricular lead. Heart mildly enlarged . There is patchy left basilar opacity. Possible trace effusions. Atherosclerotic arch calcifications . Mild hyperinflation. IMPRESSION: 1. Similar exam with mild cardiomegaly and COPD. 2. Similar trace effusions and patchy bibasilar opacities. Possible sequela of mild CHF. Correlate to exclude left basilar infiltrate.
[2022-04-08 11:34] LABS: Glucose,Whole Blood 167 mg/dL (70-110)
[2022-04-08] MEDS ORDERED: POTASSIUM CHLORIDE ER 20 MEQ TAB.ER PO STA (11:40)
[2022-04-08] MEDS: BUDESONIDE 0.5 MG/2 ML NEBU INHALATION SCH ×2 (12:11→19:52)
[2022-04-08] MEDS ORDERED: predniSONE 20 MG TAB PO STA (12:20)
[2022-04-08] MEDS: methylPREDNISolone SOD SUCCI 40 MG/ML 1 ML VIAL IV SCH ×2 (12:42→22:01)
[2022-04-08 16:43] LABS: Glucose,Whole Blood 170 mg/dL (70-110)
--- NOTE | 2022-04-08 16:58 | P.PN ---
Subjective Patient is a 76-year-old male was transferred from [facility] after he presented there with the complaints of shortness of breath, orthopnea. 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 Patient denied any fever chills. Patient chest x-ray is consistent with pulmonary edema. Patient had an echocardiogram which showed normal ejection fraction the past patient does have history of atrial fibrillation. Patient appears to be in congestive heart failure patient denied any chest pain. Patient is presently on IV heparin cardiology evaluated the patient. 04/04/2022 Patient is seen and evaluated in follow-up this morning with cardiology following closely. Patient was maintained on IV Lasix and cardiology recommending to continue at this time. No new labs from this morning and last documented kidney function was elevated will repeat labs this morning which are pending. Patient is currently on room air at 92% and blood pressure is elevated. Hydralazine being added by cardiology. This patient does have history of atrial fibrillation and is not on any anticoagulation in the outpatient setting and being investigated further by cardiology. Patient is 97% on room air and denies worsening shortness of breath. Patient and at the bedside report not eating very much and patient is fatigued. Patient reportedly lives at [facility] and plan is to return there once stabilized discharge. Labs came back and hemoglobin is 11.0, sodium is 137, potassium 3.8, BUN 46 and creatinine mildly improved at 1.57. Patient is also currently continued on IV heparin per cardiology. Echo and repeat labs in the morning. 04/05/2022 Patient evaluated today resting in bed with family at the bedside. Echocardiogram is currently pending. IV heparin is discontinued, He has been transitioned to oral lasix. Labs today showing a white count of 7.3, hgb 11.8, sodium 140, potassium 3.6, BUN 39, creatinine 1.54 which has improved. Blood glucose in the 140s. Will resume home lantus dose and continue on S/S coverage. Beta zenaida has been placed on hold. Plavix discontinued and patient started on eliquis for anticoagulation. Unsure when last BM was will resume home lactulose. He does have congested cough, no wheezing noted. Weak, PT/OT has been consulted. 04/06/2022 Patient sitting up in bed today. He continues with shortness of breath requiring 2L nasal cannula. He was unable to be weaned, 85% on room air. Covid is negative. Chest xray was completed which is negative for acute cardiopulmonary process, however patient does have hyperinflation possibly COPD which patient does not have history of. Patient will be started on pulmicort. Patient continues on eliquis. Hydralazine was increased by cardiology. Labs today showing white count 8.8, hgb 11.7, sodium 141, potassium 3.6, BUN 39, creatinine 1.49, blood glucose within normal limits, calcium 8.7. 04/07/2022 Patient is sitting up in chair today, he states that his breathing has improved since yesterday. Continues on pulmicort. He did receive a one time duoneb treatment today and will also start patient on 3 days of empiric antibiotic coverage. Cardiology has cleared patient for discharge and he continues on oral lasix. We will check a procalcitonin and repeat BMP in the AM. He does have some faint basilar crackles on exam today. Also continues on cipro eye drops which there is improvement in eye discharge today. Patient is given incentive spirometer as well. He is reaching about 750-1000 and was able to complete 10 times in a row. Remains afebrile. Subjective: Resuming the care of the patient today 04/08/2022 This is a pleasant 76 years old male who presents with signs and symptoms of non-STEMI and evidence of pulmonary congestion and acute on chronic diastolic CHF with ejection fraction of 50-55% He is hemodynamically stable. He is sitting in chair awake, denies chest pain, is slightly tachypneic but states his breathing is better. He is saturating 94% on 4 L however the morning he was able to be weaned off oxygen and he was saturating 96% on room air. No chest pain. No diarrhea or vomiting or urinary complaints. Minimally low potassium replacement 3.3. Creatinine at baseline of 1.6, baseline 1.5-2.1. Chest x-ray showing similar exam with mild CHF and COPD. Trace effusion and patchy bibasilar opacity, possible sequela of CHF. Patient with no fever or leukocytosis, pneumonia is felt less likely. However patient remains on dose of Zithromax, short oral course already started. For possible acute tracheobronchitis. Also Eliquis started by firefighting equipment specialist, His beta zenaida and clonidine were stopped because of bradycardia and patient was started on hydralazine 50 mg twice daily and currently his blood pressure is controlled 300 Solu-Medrol today for 24 hours and possible discharge him on Medrol Dosepak Discussed with social services technician possible discharge tomorrow, possible discharge in 24-48 hours Objective - Vital Signs Vital signs: Vital Signs Temp 98 F 04/08/22 08:18 Pulse 56 L 04/08/22 08:18 Resp 16 04/08/22 08:18 BP 149/75 04/08/22 08:18 Pulse Ox 93 L 04/08/22 08:42 FiO2 28 04/06/22 19:42 Intake & Output 04/07/22 04/08/22 04/08/22 18:59 06:59 18:59 Intake Total 240 118 Balance 240 118 Weight 62 kg Intake: Oral 240 118 Other: Voiding Method Urinal Urinal Urinal Diaper Diaper Diaper # Voids 1 1 - Exam GENERAL: The patient is alert and oriented x3, not in any acute distress. Well developed, well nourished. HEENT: Pupils are round and equally reacting to light. EOMI. No scleral icterus. No conjunctival pallor. Normocephalic, atraumatic. No pharyngeal erythema. No thyromegaly. CARDIOVASCULAR: S1 and S2 present. No murmurs, rubs, or gallops. -PULMONARY: Chest is clear to auscultation, no crackles. Mildly tachypneic with mild scattered wheezing ABDOMEN: Soft, nontender, nondistended, normoactive bowel sounds. No palpable organomegaly. MUSCULOSKELETAL: No joint swelling or deformity. EXTREMITIES: No cyanosis, clubbing, or pedal edema. NEUROLOGICAL: Gross neurological examination did not reveal any focal deficits. SKIN: No rashes. no petechiae. - Labs CBC & Chem 7: 04/06/22 08:09 04/08/22 07:47 Labs: Abnormal Lab Results - Last 24 Hours (Table) 04/07/22 04/07/22 04/07/22 Range/Units 11:59 14:26 16:16 Potassium (3.5-5.1) mmol/L Chloride (98-107) mmol/L Carbon Dioxide (22-30) mmol/L BUN (9-20) mg/dL Creatinine (0.66-1.25) mg/dL Glucose (74-99) mg/dL POC Glucose (mg/dL) 132 H 164 H (70-110) mg/dL Procalcitonin 1.88 H (0.02-0.09) ng/mL 04/07/22 04/08/22 04/08/22 Range/Units 20:05 06:05 07:47 Potassium 3.3 L (3.5-5.1) mmol/L Chloride 97 L (98-107) mmol/L Carbon Dioxide 32 H (22-30) mmol/L BUN 48 H (9-20) mg/dL Creatinine 1.60 H (0.66-1.25) mg/dL Glucose 111 H (74-99) mg/dL POC Glucose (mg/dL) 123 H 127 H (70-110) mg/dL Procalcitonin (0.02-0.09) ng/mL Assessment and Plan Assessment: -Shortness of breath: secondary to acute on chronic diastolic dysfunction with acute exacerbation. Transitioned back to oral lasix. -Possible mild acute COPD exacerbation -Troponin elevation secondary to end-stage renal disease and heart failure, cardiology team signed off -Sinus bradycardia. Beta zenaida and clonidine stopped. Asymptomatic -Chronic kidney disease stage III baseline creatinine is around 1.8 , also a component of acute kidney injury secondary to prerenal of congestive heart failure and patient has diabetic nephropathy. -Coronary artery disease -Insulin-dependent diabetes mellitus type 2 -Gastroesophageal reflux disease -Hyperlipidemia -Hypertension -benign prostatic hypertrophy -History of paroxysmal atrial fibrillation currently sinus rhythm paced rhythm patient has an AICD. -Depression -History of prostate cancer with radiation -Bilateral bacterial conjunctivitis patient is improving with eye drops. -Former tobacco use, patient smoked a pipe for many years -Possible COPD, patient requiring nasal cannula and also has been started on pulmicort -DVT prophylaxis: Eliquis -GI prophylaxis: Protonix Plan: This is a pleasant 76 years old male with nonischemic and CHF and possible COPD Continue with oral Lasix Continue with Eliquis Continue discontinuing beta zenaida and clonidine. Continue with low Zartan and hydralazine Start Solu-Medrol, cut the transitioned to oral dose tomorrow if it's improving Cartilage team signed off Patient will require ECF-for [facility], discussed with social services technician, possible discharge tomorrow Labs and medication were reviewed.. Continue same treatment. Continue with symptomatic treatment. Resume home medication. Monitor lytes and vitals. DVT and GI prophylaxis. Further recommendations as per clinical course of the patient DVT prophylaxis: Eliquis GI Prophylaxis: Pepcid PT/OT: NOMAN Prognosis is guarded
[2022-04-08] MEDS ORDERED: hydrALAZINE HCL 25 MG TAB PO PRN (18:09)
[2022-04-08 20:37] LABS: Glucose,Whole Blood 236 mg/dL (70-110)
[2022-04-08] MEDS: SERTRALINE 100 MG TAB PO SCH (22:00)
[2022-04-08] MEDS: FOLIC ACID 1 MG TAB PO SCH (22:00)
[2022-04-08] MEDS: FAMOTIDINE 20 MG TAB PO SCH (22:00)
[2022-04-08] MEDS: ATORVASTATIN 10 MG TAB PO SCH (22:01)
[2022-04-08] MEDS: INSULIN DETEMIR (LEVEMIR) 100 UNIT/ML SYR SQ SCH (22:04)
[2022-04-09] MEDS: SODIUM CHLORIDE 0.9% 1,000 ML IV SCH (01:44)
[2022-04-09] MEDS: methylPREDNISolone SOD SUCCI 40 MG/ML 1 ML VIAL IV SCH ×2 (04:27→12:28)
[2022-04-09 06:28] LABS: Glucose,Whole Blood 237 mg/dL (70-110)
[2022-04-09] MEDS: INSULIN ASPART (NovoLOG) 100 UNIT/ML VIAL SQ SCH ×2 (07:02→12:28)
[2022-04-09 08:23] LABS: Magnesium 2.1 mg/dL (1.6-2.3); Potassium 3.8 mmol/L (3.5-5.1)
[2022-04-09] MEDS ORDERED: predniSONE 20 MG TAB PO SCH (09:00)
[2022-04-09] MEDS: CYANOCOBALAMIN 500 MCG TAB PO SCH (09:06)
[2022-04-09] MEDS: FENOFIBRATE 160 MG TAB PO SCH (09:06)
[2022-04-09] MEDS: ASPIRIN 81 MG PO SCH (09:06)
[2022-04-09] MEDS: amLODIPine 10 MG TAB PO SCH (09:06)
[2022-04-09] MEDS: hydrALAZINE HCL 50 MG TAB PO SCH (09:06)
[2022-04-09] MEDS: APIXABAN 5 MG TAB PO SCH (09:06)
[2022-04-09] MEDS: FUROSEMIDE 40 MG TAB PO SCH (09:06)
[2022-04-09] MEDS: LOSARTAN 50 MG TAB PO SCH (09:06)
[2022-04-09] MEDS: PYRIDOXINE 50 MG TAB PO SCH (09:06)
[2022-04-09] MEDS: AZITHROMYCIN 500 MG TAB PO SCH (09:06)
[2022-04-09] MEDS: CHOLECALCIFEROL 25 MCG (1000 IU) TABLET PO SCH (09:06)
[2022-04-09] MEDS: LACTULOSE 20 GM/30 ML CUP PO SCH (09:06)
[2022-04-09] MEDS: FERROUS SULFATE 325 MG TAB PO SCH (09:08)
--- NOTE | 2022-04-09 09:42 | P.DS ---
Providers Date of admission: 04/03/22 00:14 Attending physician: Sandi Luevano MD Primary care physician: Ginna Carter [facility] Hospital Course: Diagnoses: -Shortness of breath: secondary to acute on chronic diastolic dysfunction with acute exacerbation. Transitioned back to oral lasix. -Possible mild acute COPD exacerbation -possible left basilar pneumonia, -Troponin elevation secondary to end-stage renal disease and heart failure, cardiology team signed off -Sinus bradycardia. Beta zenaida and clonidine stopped. Asymptomatic -Chronic kidney disease stage III baseline creatinine is around 1.8 , also a component of acute kidney injury secondary to prerenal of congestive heart failure and patient has diabetic nephropathy. -Coronary artery disease -Insulin-dependent diabetes mellitus type 2 -Gastroesophageal reflux disease -Hyperlipidemia -Hypertension -benign prostatic hypertrophy -History of paroxysmal atrial fibrillation currently sinus rhythm paced rhythm patient has an AICD. -Depression -History of prostate cancer with radiation -Bilateral bacterial conjunctivitis patient is improving with eye drops. -Former tobacco use, patient smoked a pipe for many years -Possible COPD, patient requiring nasal cannula and also [facility]: Patient is a 76-year-old male was transferred from [facility] after he presented there with the complaints of shortness of breath, orthopnea. Patient found to have non-STEMI with acute diastolic CHF, ejection of traction was 50- 55%. On the top of his evidence of permanent atrial fibrillation on Eliquis started here in the hospital by windows systems architect. Assistant Director Of Plant Operations team already evaluated the patient and Also patient was still tachypneic, it is thought secondary to his CHF, COPD exacerbation and possible left basilar infiltrate on chest x-ray suspicious for pneumonia with elevated abovecalcitonin 1.8. Patient is febrile, no leukocytosis. Patient responded to treatment with IV Lasix which is wished oral Lasix. Also he was treated with IV Solu-Medrol which can be switched to short course of Medrol Dosepak upon discharge. Also patient received Zithromax and he might benefit on short course of oral antibiotics of Augmentin upon discharge. We recommend to repeat chest x-ray in 1 weeks with his PCP as well as with his doctor in 1 week. Patient breathing significantly improved and he is even significantly better than yesterday. The patient himself feels his breathing improved and he is ready for discharge. Patient was cleared for discharge by windows systems architect was signed off the case. Problems and management plan were discussed with the patient and he verbalized understanding and acceptance. Also per she wants patient to go to rehab Patient was found stable and can be discharged ECF for rehab in guarded prognosis however he needs follow-up as an outpatient. Patient was instructed to follow up with PCP Dr. Carter within one week and patient agrees We recommend patient follow up with windows systems architect Dr. Kapoor in one week Physical exam Gen: patient is a AAOx3, no distress CVS: S1-S2, RRR, no murmur Lungs: B/L CTA, no wheezing Abdomen: soft, no distention, no tenderness, positive bowel sounds Extremity: no leg edema or induration Time spent more than 35 minutes Patient Condition at Discharge: Fair Plan - Discharge Summary Discharge Rx Participant: No New Discharge Prescriptions: New hydrALAZINE HCL [Apresoline] 50 mg PO BID tab Aspirin 81 mg PO DAILY tab Apixaban [Eliquis] 5 mg PO BID tab Furosemide [Lasix] 40 mg PO BID@0900,1600 tab Azithromycin [Zithromax] 500 mg PO DAILY 5 Days #5 tab methylPREDNISolone Dose Pack [Medrol Dose Pack] 4 mg PO DIRECTED 6 Days #1 packet INSULIN ASPART (NovoLOG) [NovoLOG (formulary)] 0 unit SQ ACHS each Budesonide [Pulmicort] 0.5 mg INHALATION RT-BID ml Continue [place]-3 Fatty Acids/Fish Oil [Fish Oil 1,000 mg Softgel] 2 cap PO DAILY Fenofibrate 160 mg PO MOWEFR Cyanocobalamin (Vitamin B-12) [Vitamin B-12] 1,000 mcg PO DAILY Sertraline [Zoloft] 100 mg PO HS amLODIPine [Norvasc] 10 mg PO DAILY Pyridoxine HCl (Vitamin B6) [Vitamin B-6] 100 mg PO DAILY Ferrous Sulfate [Iron (65 MG Elemental)] 325 mg PO DAILY #30 tab Losartan Potassium 100 mg PO HS Folic Acid 1 mg PO HS Insulin Glargine,Hum.rec.anlog [Lantus Solostar Pen] 7 unit SQ HS Omeprazole 20 mg PO BID Atorvastatin [Lipitor] 10 mg PO HS Cholecalciferol [Vitamin D3 (25 Mcg = 1000 Iu)] 25 mcg PO DAILY Lactulose 20 gm PO DAILY Discontinued Cephalexin [Keflex] 500 mg PO Q8HR #90 cap HYDROcodone/APAP 5-325MG [[place] 5-325] 1 tab PO Q8H PRN PRN Reason: Pain Metoprolol Succinate (ER) [Toprol XL] 50 mg PO HS cloNIDine HCL [Catapres] 0.1 mg PO BID Discharge Medication List Fenofibrate 160 mg PO MOWEFR 01/06/17 [History] [place]-3 Fatty Acids/Fish Oil [Fish Oil 1,000 mg Softgel] 2 cap PO DAILY 01/06/17 [History] Cyanocobalamin (Vitamin B-12) [Vitamin B-12] 1,000 mcg PO DAILY 12/01/18 [History] Pyridoxine HCl (Vitamin B6) [Vitamin B-6] 100 mg PO DAILY 01/09/21 [History] Ferrous Sulfate [Iron (65 MG Elemental)] 325 mg PO DAILY #30 tab 09/04/21 [Rx] Losartan Potassium 100 mg PO HS 10/12/21 [History] Folic Acid 1 mg PO HS 10/29/21 [History] Insulin Glargine,Hum.rec.anlog [Lantus Solostar Pen] 7 unit SQ HS 11/25/21 [History] Omeprazole 20 mg PO BID 11/25/21 [History] Sertraline [Zoloft] 100 mg PO HS 11/25/21 [History] Atorvastatin [Lipitor] 10 mg PO HS 04/03/22 [History] Cholecalciferol [Vitamin D3 (25 Mcg = 1000 Iu)] 25 mcg PO DAILY 04/03/22 [History] Lactulose 20 gm PO DAILY 04/03/22 [History] amLODIPine [Norvasc] 10 mg PO DAILY 04/03/22 [History] Apixaban [Eliquis] 5 mg PO BID tab 04/08/22 [Rx] Aspirin 81 mg PO DAILY tab 04/08/22 [Rx] Azithromycin [Zithromax] 500 mg PO DAILY 5 Days #5 tab 04/08/22 [Rx] Budesonide [Pulmicort] 0.5 mg INHALATION RT-BID ml 04/08/22 [Rx] Furosemide [Lasix] 40 mg PO BID@0900,1600 tab 04/08/22 [Rx] INSULIN ASPART (NovoLOG) [NovoLOG (formulary)] 0 unit SQ ACHS each 04/08/22 [Rx] hydrALAZINE HCL [Apresoline] 50 mg PO BID tab 04/08/22 [Rx] methylPREDNISolone Dose Pack [Medrol Dose Pack] 4 mg PO DIRECTED 6 Days #1 packet 04/08/22 [Rx] Follow up Appointment(s)/Referral(s): Jennifer Kapoor MD [STAFF PHYSICIAN] - 1 Week Ginna Carter DO [Primary Care Provider] - 1-2 days Activity/Diet/Wound Care/Special Instructions: discharge instructions: heart healthy diet we recommend fluid restriction 1200 ml per day we recommend to check labs : complete blood count and basic metabolic panel in 2-3 days with his doctor activity as tolerated Discharge Disposition: TRANSFER TO SNF/ECF
[2022-04-09] MEDS ORDERED: AMOXIC-POT CLAV 875-125MG 1 EACH TAB PO SCH (09:45)
[2022-04-09] MEDS: CIPROFLOXACIN 0.3% OPHTH OINT 3.5 GM TUBE BOTH EYES SCH (09:46)
[2022-04-09] MEDS: BUDESONIDE 0.5 MG/2 ML NEBU INHALATION SCH (10:52)
[2022-04-09 11:39] LABS: Glucose,Whole Blood 227 mg/dL (70-110)
[2022-04-09 12:33] VITALS: BP 137/71; PULSE 55; RESP 16; TEMP 98.2
[2022-04-09 13:30] VITALS: BMI 25.9
== END 2022-04-09 13:54 | DRG 280 ==
LOC: EC 22:31 → 3SCARD 04-03 00:14
PROVIDERS: ADMIT Internal Medicine; ATTEND Internal Medicine
DX: I13.0 Hypertensive heart and chronic kidney disease with heart failure and stage 1 through stage 4 chronic kidney disease, or unspecified chronic kidney disease (principal); I50.33 Acute on chronic diastolic (congestive) heart failure; I21.4 Non-ST elevation (NSTEMI) myocardial infarction; J18.9 Pneumonia, unspecified organism; N17.9 Acute kidney failure, unspecified; J44.1 Chronic obstructive pulmonary disease with (acute) exacerbation; J44.0 Chronic obstructive pulmonary disease with (acute) lower respiratory infection; I48.21 Permanent atrial fibrillation; I42.9 Cardiomyopathy, unspecified; E11.22 Type 2 diabetes mellitus with diabetic chronic kidney disease; F03.90 Unspecified dementia, unspecified severity, without behavioral disturbance, psychotic disturbance, mood disturbance, and anxiety; N18.30 Chronic kidney disease, stage 3 unspecified; Z79.4 Long term (current) use of insulin; Z20.822 Contact with and (suspected) exposure to COVID-19; H10.89 Other conjunctivitis; F32.A Depression, unspecified; E78.5 Hyperlipidemia, unspecified; I25.10 Atherosclerotic heart disease of native coronary artery without angina pectoris; K21.9 Gastro-esophageal reflux disease without esophagitis; M19.90 Unspecified osteoarthritis, unspecified site; N40.0 Benign prostatic hyperplasia without lower urinary tract symptoms; R00.1 Bradycardia, unspecified; H54.7 Unspecified visual loss; Z79.899 Other long term (current) drug therapy; Z87.891 Personal history of nicotine dependence; Z95.810 Presence of automatic (implantable) cardiac defibrillator; Z96.643 Presence of artificial hip joint, bilateral; Z85.46 Personal history of malignant neoplasm of prostate; Z92.3 Personal history of irradiation; Z86.010 Personal history of colon polyps; Z87.19 Personal history of other diseases of the digestive system; Z86.14 Personal history of Methicillin resistant Staphylococcus aureus infection; Z99.3 Dependence on wheelchair; Z91.030 Bee allergy status; Z80.0 Family history of malignant neoplasm of digestive organs
CPT/HCPCS: 36415; 71045; 71046; 80048; 80053; 80061; 83036; 83735; 83880; 84145; 84484; 85025; 85610; 85730; 87635; 93005; 94640; 94760; 96365; 96366; 99285